=== PATIENT | female | born 1960 | race Caucasian/White ===

== ENCOUNTER → 2017-05-27 | Outpatient (CLI) | payer MEDICAID ==
[~2017-05-27] MED LIST: LISINOPRIL/HCTZ1 TA3 PO; LORTAB 5/500 501 TAB PO; PHENERGAN 25MG.25 M1 PO; Prilosec20 MG PO; SULFACETAMIDE S15 M1 OP; SYMBICORT1 AE1 IH; VENTOLIN H0.09 MG/Ac IH
[2017-05-27 16:44] LABS: HEMOGLOBIN 14.6 g/dL (12.2-16.2); LYMPH % 25.8 % (10-50.0)
[2017-05-27 18:25] LABS: BUN 13 mg/dL (7-18)
[2017-05-27 18:27] LABS: GFR (ESTIMATED) 74 ML/MIN (59-)
[2017-05-29 08:42] LABS: HBsAg Screen Negative (Negative); Hep A Ab, IgM Negative (Negative); Hep B Core Ab, IgM Negative (Negative); Hep C Virus Ab <0.1 (0.0-0.9)
[2017-05-29 10:40] LABS: Vitamin B12 365 pg/mL (211-946)
[2017-06-01 03:37] LABS: 1,25-Dihydroxy, Vitamin D-2 <10 pg/mL (.); 1,25-Dihydroxy, Vitamin D-3 38 pg/mL (.); Total 1,25-Dihydroxy,Vitamin D 42 pg/mL (.)
== END ==
LOC: LAB 16:07
PROVIDERS: Nurse Practitioner Family
DX: R53.83 Other fatigue (principal); R73.9 Hyperglycemia, unspecified; N93.9 Abnormal uterine and vaginal bleeding, unspecified

== ENCOUNTER → 2017-07-15 | Outpatient (CLI) | payer MEDICAID ==
[~2017-07-15] MED LIST changes: +ASPIR 8181 MG PO; +COREG 12.5 MG12.5 MG PO
--- NOTE | 2017-07-15 14:06 | CARDIOVASCULAR REPORT ---
"Cerebrovascular Exam Indications: 780.4 Dizziness and giddiness. IMPRESSIONS 1. The bilateral vertebral arteries are patent with normal antegrade flow. 2. Study suggests less than 20% stenosis involving the right internal carotid artery and the left internal carotid artery. Carotid duplex study. Complete study and Doppler flow study including spectral analysis, color and hernandez scale imaging. Height: Height: 160cm. Height: 63in. Weight: Weight: 82.6kg. Weight: 181.6lb. Body mass index: BMI: 32.2kg/m^2. Body surface area: BSA: 1.95m^2. Location: Vascular laboratory. Patient status: Outpatient. Tables: Arterial flow: + +--------+--------+ |Location |V sys |V ed | + +--------+--------+ |Right CCA - proximal|63.4cm/s|18.7cm/s| + +--------+--------+ |Right CCA - distal |62.3cm/s|20.4cm/s| + +--------+--------+ |Right ECA |58.9cm/s|--------| + +--------+--------+ |Right ICA - proximal|50cm/s |21.7cm/s| + +--------+--------+ |Right ICA - mid |59.7cm/s|29.1cm/s| + +--------+--------+ |Right ICA - distal |59.7cm/s|24.4cm/s| + +--------+--------+ |Right vertebral |29.9cm/s|--------| + +--------+--------+ |Left CCA - proximal |71.1cm/s|19.6cm/s| + +--------+--------+ |Left CCA - distal |68cm/s |20.8cm/s| + +--------+--------+ |Left ECA |78.1cm/s|--------| + +--------+--------+ |Left ICA - proximal |44.9cm/s|22cm/s | + +--------+--------+ |Left ICA - mid |73.5cm/s|35cm/s | + +--------+--------+ |Left ICA - distal |54.6cm/s|18.4cm/s| + +--------+--------+ |Left vertebral |28.9cm/s|--------| + +--------+--------+ Velocity ratios: + + + + + + | |Right, V sys|Right, V ed|Left, V sys|Left, V ed| + + + + + + |Max ICA/dist CCA|0.96 |1.43 |1.08 |1.68 | + + + + + + (Report amended ) Electronically signed by: Arnol Flores [id number]"
== END ==
LOC: RT 13:00
DX: R42 Dizziness and giddiness (principal); R20.2 Paresthesia of skin; I10 Essential (primary) hypertension

== ENCOUNTER 2017-07-17 14:48 | Observation (INO) | payer MEDICAID ==
[~2017-07-17] VITALS: Ht 160 cm; Wt 82.1 kg
[~2017-07-17 14:48] MED LIST changes: -ASPIR 8181 MG PO; -COREG 12.5 MG12.5 MG PO
[2017-07-17 14:49] VITALS: BP 157/111
--- OUTSIDE RECORDS SUMMARY | 2017-07-17 15:02 | External Medical Summary Rpt ---
Author Author , VIN BANUELOS Address Unknown Phone [email or web address] Care Team Providers Care Mutual Fund Accountant Name Role Phone A Mohini CLEMENS MD PSC, Gilbert Unavailable Unavailable Mohini CLEMENS MD PSC BEINEMIKE POSEY, BEINEKE Unavailable Unavailable KALPESH BESSON, BESSON Unavailable Unavailable BEDOYA, BEDOYA Unavailable Unavailable MICHELLE OMAR, MICHELLE Unavailable Unavailable OMAR [facility], Unavailable Unavailable [facility] GOLDIE AFIA, Unavailable Unavailable [facility] G[facility], Unavailable Unavailable GOLDIE AFIA [facility] Unavailable Unavailable [place], [facility] JENIFER [facility], FIELD [facility] Unavailable Unavailable FRYMAN, FRYMAN Unavailable Unavailable LAYNE, LAYNE Unavailable Unavailable LAYNE MARY LOU, LAYNE Unavailable Unavailable MARY LOU [facility] PAULINO RHO, PAULINO Unavailable Unavailable RHO [facility] Un[facility] Un[facility], [facility] Un[facility] Un[facility] P, [facility] JACOBSON, JACOBSON Unavailable Unavailable JACOBSON, JACOBSON Unavailable Unavailable [facility], Unavailable Unavailable [facility] KEDING, KEDING Unavailable Unavailable KEDING, KEDING Unavailable Unavailable KEDING YANG, KEDING Unavailable Unavailable YANG [place] YANG, KEDING Unavailable Unavailable YANG [facility] KILPELA JEA, KILPELA Unavailable Unavailable JEA KILPELA JEA, KILPELA Unavailable Unavailable JEA MARCHINO BRY, Unavailable Unavailable MARCHINO BRY [facility], Unavailable Unavailable [facility], Unavailable Unavailable [facility], Unavailable Unavailable [facility] NATHALIE BRY, NATHALIE BRY Unavailable Unavailable [facility], [facility] POUND, POUND Unavailable Unavailable [facility], Unavailable Unavailable [facility], Unavailable Unavailable [facility] STONE GAURANG, STONE GAURANG Unavailable Unavailable Purpose Continuity of Care Document - 12-17-2013 through 2016 Problems Code Diagnosis DOS Provider Status [id number] MIGRAINE 06-06-2017 [facility] W/AURA NOT INTRACT W/STATUS MIGRAINOSUS M5412 RADICULOPAT 06-06-2017 [facility] HY CERVICAL REGION M542 CERVICALGIA 06-06-2017 [facility] I10 ESSENTIAL 05-27-2017 [facility] PRIMARY PHYSICIANS HYPERTENSIO GROUP N N390 URINARY 05-27-2017 [facility] TRACT PHYSICIANS INFECTION GROUP SITE NOT SPECIFIED N939 ABNORMAL 05-27-2017 [facility] UTERINE & PHYSICIANS VAGINAL GROUP BLEEDING UNSPECIFIED R5383 OTHER 05-27-2017 [facility] FATIGUE PHYSICIANS GROUP R739 HYPERGLYCEM 05-27-2017 [facility] IA PHYSICIANS UNSPECIFIED GROUP Z1231 ENCOUNTER 03-13-2017 [place] [facility] MAMMO MAL INC NEOPLASM BREAST M4802 SPINAL 02-28-2017 [facility] STENOSIS PHYSICIANS CERVICAL GROUP REGION I2510 ASHD NOORVIK 02-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 [facility] 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 P ANGINA PECTORIS U29968 PAIN IN 02-06-2017 [facility] RIGHT ARM PHYSICIANS, PLLC C43557 PAIN IN 02-06-2017 [facility] LEFT ARM PHYSICIANS GROUP [id number] PAIN IN ARM 02-06-2017 [facility] R0789 OTHER CHEST 02-06-2017 [facility] PAIN PHYSICIANS GROUP R079 CHEST PAIN 02-06-2017 [place] Z720 TOBACCO USE 02-06-2017 [facility] P H1033 UNSPECIFIED 10-25-2016 [facility] ACUTE PHYSICIANS, CONJUNCTIVI PLLC TIS BILATERAL H109 UNSPECIFIED 10-25-2016 [facility] PHYSICIANS, CONJUNCTIVI PLLC TIS H1013 ACUTE 10-23-2016 [facility] CONJUNCTIVI TIS BILATERAL E53155 PAIN IN 09-17-2016 [facility] SHOULDER B04237 OTHER 09-17-2016 [place] SPECIFIED COMMUNTIY JOINT HOSPITA DISORDERS RIGHT SHOULDER M4302 SPONDYLOLYS 09-17-2016 [facility] IS CERVICAL N EMERGENCY REGION SERV M5030 OTH 09-17-2016 [place] CERVICAL COMMUNTIY DISC HOSPITA DEGENERATIO N UNS CERV REGION L12714 UNS ROT 09-17-2016 [place] CUFF COMMUNTIY TEAR/RUPT HOSPITA RT SHLDR NOT SPEC TRAUMAT M7521 BICIPITAL 09-17-2016 [facility] TENDINITIS N EMERGENCY RIGHT SERV SHOULDER M7551 BURSITIS OF 09-17-2016 [facility] RIGHT N EMERGENCY SHOULDER SERV M7591 SHOULDER 09-17-2016 [facility] LESION N EMERGENCY UNSPECIFIED SERV RIGHT SHOULDER Y60646 MIGRAINE 06-13-2016 [facility] UNS NOT PHYSICIANS INTRACT W/O GROUP STATUS MIGRAINOSUS J449 CHRONIC 06-13-2016 [facility] OBSTRUCTIVE PHYSICIANS PULMONARY GROUP DISEASE UNS K047 PERIAPICAL 06-13-2016 [facility] ABSCESS PHYSICIANS WITHOUT GROUP SINUS C19269 CELLULITIS 06-13-2016 [facility] OF HEAD ANY PHYSICIANS PART GROUP EXCEPT FACE R161 SPLENOMEGAL 06-13-2016 [facility] Y NOT PHYSICIANS ELSEWHERE GROUP CLASSIFIED Z0000 ENCOUNTER 06-13-2016 [facility] GEN ADULT PHYSICIANS MED EXAM GROUP W/O ABNORMAL FIND Z0100 ENCOUNTER 10-06-2015 ERA EXAM EYES & GRE VISION W/O ABNORMAL FIND R109 UNSPECIFIED 09-30-2015 A Mohini CLEMENS ABDOMINAL PSC PAIN R300 DYSURIA 09-30-2015 A Mohini CLEMENS MD [facility] G43C0 PERIODIC 09-15-2015 A Mohini CLEMENS HEADACHE PSC SYND CHILD/ADULT NOT INTRACT L659 NONSCARRING 09-15-2015 [facility] UNSPECIFIED M797 FIBROMYALGI 09-15-2015 [facility] Z8379 FAMILY 09-15-2015 [facility] OTHER DISEASES DIGESTIVE SYSTEM 7231 CERVICALGIA 08-02-2015 [place] YANG 74747 SPASM OF 08-02-2015 [facility] MUSCLE 71277 MIGRAINE 05-17-2015 A Mohini CLEMENS UNSP W/O PSC INTRACT W/O STATUS MIGRAINOSUS 06503 HEMIPLEGIC 04-19-2015 A Mohini CLEMENS MIGRAINE PSC W/INTRACTAB LE W/O SM 7881 DYSURIA 04-19-2015 A Mohini CLEMENS MD PSC 89796 CHRONIC 02-18-2015 A Mohini DEL CID MD PSC W/O AURA W/O INTRACTABLE W/O SM 496 CHRONIC 02-18-2015 A Mohini CLEMENS AIRWAY PSC OBSTRUCTION NEC 67713 OTHER CHEST 02-17-2015 A Mohini CLEMENS PAIN PSC 51330 SHORTNESS 09-10-2014 [place] [facility] 08085 SOLITARY 09-10-2014 [facility] NODULE INC 51403 DIVERTICULO 08-20-2014 [place] SIS OF MEDICAL COLON IMAG[facility] 5718 OTHER 08-20-2014 [place] CHRONIC MED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 77641 ABDOMINAL 08-20-2014 [facility] PAIN[facility] UNSPECIFIED INC SITE 28761 ABDOMINAL 08-20-2014 [place] [facility] EPIGASTRIC IM[facility] 61725 CHEST PAIN 08-12-2014 A Mohini CLEMENS UNSPECIFIED [facility] V7612 OTHER 08-12-2014 [facility]CREEN[facility] MAMMOGRAM INC 7245 UNSPECIFIED 08-11-2014 A Mohini CLEMENS BACKACHE PSC 4011 ESSENTIAL 12-30-2013 GER[facility]DOKIR[facility] PAM HYPERTENSIO N, BENIGN 7821 RASH AND 12-30-2013 KILPELA JEA OTHER NONSPECIFIC SKIN ERUPTION 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 OF 5 CY MG NT HI TA AN B A IN C CE 65 06 07 20 10 00 EA Ac PH 86 -2 -[address] ti AL 20 6- 8- 00 00 SI ve EX 01 20 20 49 DE IN 90 17 17 25 5 10 PH 50 AR 0 MA MG CY CA OF PS CY UL NT E HI AN A IN C LI 68 06 07 30 30 00 EA Ac SI 18 -1 -[address] ti NO 00 4- 4- 00 00 SI ve UT 51 20 20 47 DE IL 80 17 17 98 -H [address] AR Z MA 10 CY -1 2. OF 5 CY MG NT HI TA AN B A IN C CY 00 03 05 28 14 00 EA Ac CL 37 -3 -[address] ti OB 80 0- 5- 00 00 SI ve EN 75 20 20 48 DE ZA 11 17 17 18 UT 0 29 PH IN AR E MA 10 CY MG OF CY TA NT BL HI ET AN A IN C IB 53 03 05 30 30 00 EA Ac UP 74 -3 -[address] ti RO 60 0- 5- 00 00 SI ve FE 46 20 20 48 DE N 60 17 17 18 80 5 49 PH 0 AR MG MA CY TA BL OF ET CY NT HI AN A IN C SY 00 03 04 10 30 00 EA Ac MB 18 -1 -[address] ti IC 60 5- 4- 99 00 SI ve OR 37 20 20 47 DE T 02 17 17 98 16 0 47 PH 0- AR 4. MA 5 CY MC G OF IN CY BLANDON NT LE HI R AN A IN C VE 00 03 04 18 20 00 EA Ac NT 17 -1 -[address] ti OL 30 5- 4- 00 00 SI ve IN 68 20 20 47 DE 22 17 17 98 HF 0 48 PH A AR 90 MA CY MC G OF IN CY BLANDON NT LE HI R AN A IN C LI 68 03 04 30 30 00 EA Ac SI 18 -1 -[address] ti NO 00 5- 4- 00 00 SI ve UT 51 20 20 47 DE IL 80 17 17 98 -H [address] AR Z MA 10 CY -1 2. OF 5 CY MG NT HI TA AN B A IN C LI 68 01 01 0 40 4 EA 47 GA Ac SI 18 -0 -[address] 17 IN ti NO 00 9- 0- 00 SI 28 EY ve UT 51 20 20 DE [place] 80 17 17 WI -H [address] AR AE Z MA L 10 CY S -1 2. OF 5 MG CY NT TA HI B AN A Results Labs Lab Lab Date Result Refere Interp Status Commen Order Detail nces retati t Range on Hemoglobin A1c in Blood (06-27-2017 19:55) Hemoglo 06-27- 5.4 % 0.0% Normal complet bin A1c 017 - ed in 19:55 7.0% Blood Hemoglobin A1c in Blood (05-27-2017 11:45) Hemoglo 05-27- 5.3 % 0.0% Normal complet bin A1c 017 - ed in 11:45 7.0% Blood Procedures Procedure DOS Code Location Performer Comment APPL 31755 [facility] MODALITY 7 1/> AREAS TRACTION MECHANICA L CHIROPRAC 75868 [facility] TIC 7 MANIPULAT DAMIAN [place] SPINAL 1-2 REGIONS APPL 60195 [facility] MODALITY 7 1/> AREAS TRACTION MECHANICA L CHIROPRAC 08732 [facility] TIC 7 MANIPULAT DAMIAN [place] SPINAL 1-2 REGIONS SCREENING 61606 [facility] MAMMOGRAP INC INC HY BI 2-VIEW BREAST INC CAD RHEUMATOI 71325 [facility] D FACTOR 7 [facility] QUANTITAT INC INC DAMIAN CYANOCOBA 33031 [facility] IGNACIA 7 [facility] VITAMIN INC INC B-12 THERAPEUT 56093 [facility] IC 7 PHYSICIAN PHYSICIAN PROPHYLAC S GROUP S GROUP TIC/DX INJECTION SUBQ/[place] [address] [facility] THYROID 7 [facility] STIMULATI [place] [address] [facility] FREE 7 [facility] [place] [address] [facility] FOLIC 7 [facility] ACID INC INC SERUM COMPREHEN 60788 [facility] SIVE 7 [facility] METABOLIC INC INC PANEL APPL 81765 [facility] MODALITY 7 1/> AREAS TRACTION MECHANICA L CHIROPRAC 18168 [facility] TIC 7 MANIPULAT DAMIAN TX SPINAL 1-2 REGIONS ECG 36778 [facility] ROUTINE 7 [facility] ECG INC INC W/LEAST 12 LDS TRCG ONLY W/O I&R THER 96157 [facility] PROPH/DX 7 [facility] NJX IV INC INC PUSH SINGLE/1S T SBST/DRUG CREATINE 09392 [facility] KINASE 7 [facility] TOTAL INC CREATINE 39068 [facility] KINASE MB 7 [facility] FRACTION INC INC ONLY COMPREHEN 68367 [facility] SIVE 7 [facility] METABOLIC INC INC PANEL THERAPEUT 82409 [facility] IC 7 [facility] INJECTION INC INC IV PUSH EACH NEW DRUG BLOOD 68083 [facility] COUNT 7 [facility] COMPLETE INC INC AUTO&[place] [address] [facility] TROPONIN 7 [facility] QUANTITAT INC INC DAMIAN ECG 46207 [facility] IGNACIO ROUTINE 7 [facility] W/LEAST P 12 LDS I&R ONLY RADIOLOGI 24275 [place] C 7 MEDICAL EXAMINATI IMAGING ON CHEST ASS SINGLE VIEW FRONTAL APPL 25946 [facility] [place]EDING MODALITY 7 1/> AREAS TRACTION MECHANICA L CHIROPRAC 27859 [facility] [place] TIC 7 MANIPULAT DAMIAN TX SPINAL 1-2 REGIONS CHIROPRAC 49701 [facility] [place] TIC 7 MANIPULAT DAMIAN TX SPINAL 1-2 REGIONS CHIROPRAC 30799 [facility] [place] TIC 7 MANIPULAT DAMIAN TX SPINAL 1-2 REGIONS CHIROPRAC 32614 [facility] [place] TIC 6 YANG YANG MANIPULAT DAMIAN TX SPINAL 1-2 REGIONS CHIROPRAC 65593 [facility] [place] TIC 6 YANG YANG MANIPULAT DAMIAN TX SPINAL 1-2 REGIONS CHIROPRAC 22931 [facility] [place] TIC 6 YANG YANG MANIPULAT DAMIAN TX SPINAL 1-2 REGIONS INJECTION J2360 [facility] 6 N N ORPHENADR COMMUNTIY COMMUNTIY INE HOSPITA HOSPITA CITRATE UP TO 60 MG INJECTION J1885 [facility] 6 N N KETOROLAC COMMUNTIY COMMUNTIY HOSPITA HOSPITA TROMETHAM INE PER 15 MG RADEX 58564 [facility] SPINE 6 N N CERVICAL COMMUNTIY COMMUNTIY 2 OR 3 HOSPITA HOSPITA VIEWS RADEX 42438 [facility] [place] [facility] SPINE 6 RADIOLOGY RHO CERVICAL 4 OR 5 VIEWS RADEX 21686 [facility] SHOULDER 6 N N COMPLETE COMMUNTIY COMMUNTIY MINIMUM 2 HOSPITA HOSPITA VIEWS THERAPEUT 06662 [facility] IC 6 N N PROPHYLAC COMMUNTIY COMMUNTIY TIC/DX HOSPITA HOSPITA INJECTION SUBQ/IM CHIROPRAC 64531 [facility] SOLIS TIC 6 YANG BRY MANIPULAT DAMIAN TX SPINAL 1-2 REGIONS CHIROPRAC 90619 [facility] MARTINEZ TIC 6 YANG OMAR MANIPULAT DAMIAN TX SPINAL 1-2 REGIONS CHIROPRAC 58042 [facility] MCKEONDING TIC 6 YANG YANG MANIPULAT DAMIAN TX SPINAL 1-2 REGIONS COLLECTIO 15982 [facility] MERCEDES GAURANG N VENOUS 6 PHYSICIAN BLOOD S GROUP VENIPUNCT URE ANTIBODY 18813 [facility] JS-B 6 [facility] ARR EB INC [place] [address] [facility] THYROID 6 [facility] STIMULATI [place] [address] [facility] FREE 6 [facility] THYROXINE INC INC COMPREHEN 14660 [facility] SIVE 6 [facility] METABOLIC INC INC PANEL IMMUNOASS 28784 [facility] AY NFCT 6 [facility] AGT ANTB INC INC QUAL/SEMI CONNER 1 STEP BLOOD 32156 [facility] COUNT 6 [facility] COMPLETE INC INC AUTO&AUTO DIFRNTL WBC ANTIBODY 71126 [facility] JS-B 6 [facility] ARR EB INC INC VIRUS VIRAL CAPSID VCA CHIROPRA 22063 [facility] MCKEOND[facility] TIC 6 YANG YANG MANIPULAT DAMIAN TX SPINAL 1-2 REGIONS CHIROPRAC 38575 [facility] MCKEONDING TIC 6 YANG YANG MANIPULAT DAMIAN TX SPINAL 1-2 REGIONS APPL 76440 [facility] MODALITY 6 1/> AREAS TRACTION MECHANICA L CHIROPRAC 98907 [facility] TIC 6 MANIPULAT DAMIAN [place] SPINAL 1-2 REGIONS THERAPEUT 62441 [facility] IC PX 1/> 6 AREAS EACH 15 MIN EXERCISES CHIROPRAC 99789 [facility] TIC 6 YANG YANG MANIPULAT DAMIAN TX SPINAL 1-2 REGIONS CHIROPRAC 61361 [facility] [place] TIC 6 YANG YANG MANIPULAT DAMIAN TX SPINAL 1-2 REGIONS THERAPEUT 64372 [facility] [place] IC PX 1/> 6 AREAS EACH 15 MIN EXERCISES APPL 42325 [facility] [place] MODALITY 6 1/> AREAS TRACTION MECHANICA L CHIROPRAC 86690 [facility] [place] TIC 6 MANIPULAT DAMIAN TX SPINAL 1-2 REGIONS CHIROPRAC 75332 [facility] [place] TIC 6 YANG YANG MANIPULAT DAMIAN TX SPINAL 1-2 REGIONS CHIROPRAC 48454 [facility] [place] TIC 5 YANG YANG MANIPULAT DAMIAN TX SPINAL 1-2 REGIONS CHIROPRAC 73363 [facility] [place] TIC 5 YANG YANG MANIPULAT DAMIAN TX SPINAL 1-2 REGIONS OPHTH 79397 [facility] 5 GRE GRE XM&EVAL COMPRE NEW PT 1/> VST URINLS 40355 A C KILPELA DIP 5 SARATH RODRIGUEZ JEA STICK/TAB PSC LET REAGNT NON-AUTO MICRSCPY BILIRUBIN 90059 [facility] 5 DIAGNOSTI DIAGNOSTI CS BLOOD 17180 A C NATHALIE BRY COUNT 5 SARATH RODRIGUEZ COMPLETE PSC AUTO&AUTO DIFRNTL WBC COMPREHEN 39959 [facility] SIVE 5 DIAGNOSTI DIAGNOSTI [place] [address] [facility] THYROID 5 DIAGNOSTI DIAGNOSTI STIMULATI CS CS NG HORMONE TSH CHIROPRA 31658 [facility] [place] TIC 5 YANG YANG MANIPULAT DAMIAN TX SPINAL 1-2 REGIONS CHIROPRAC 03294 [facility] [place] TIC 5 YANG YANG MANIPULAT DAMIAN TX SPINAL 1-2 REGIONS CHIROPRAC 18459 [facility] [place] TIC 5 YANG YANG MANIPULAT DAMIAN TX SPINAL 1-2 REGIONS THERAPEUT 03768 A C FIELD AMB IC 5 SARATH RODRIGUEZ PROPHYLAC PSC TIC/DX INJECTION SUBQ/IM URINLS 46478 A C FIELD AMB DIP 5 SARATH RODRIGUEZ STICK/TAB PSC LET REAGNT NON-AUTO MICRSCPY INJECTION J1885 A C FIELD AMB 5 SARATH RODRIGUEZ KETOROLAC PSC TROMETHAM INE PER 15 MG CHIROPRAC 96092 [facility] [place] TIC 5 YANG YANG MANIPULAT DAMIAN TX SPINAL 1-2 REGIONS APPL 64373 [facility] [place] MODALITY 5 YANG YANG 1/> AREAS TRACTION MECHANICA L CHIROPRAC 36641 [facility] [place] TIC 5 YANG YANG MANIPULAT DAMIAN TX SPINAL 1-2 REGIONS THERAPEUT 36410 [facility] [place] IC PX 1/> 5 YANG YANG AREAS EACH 15 MIN EXERCISES RADEX 47622 [facility] SPINE 5 [facility] CERVICAL INC INC 4 OR 5 VIEWS THERAPEUT 52309 A C GERALDOLA IC 5 SARATH RODRIGUEZ JEGilbert PROPHYLAC PSC TIC/DX INJECTION SUBQ/IM INJECTION J1885 A C KILPELA 5 SARATH OROZCO KETOROLAC PSC TROMETHAM INE PER 15 MG INJ J0702 A C YEMIPELA BETAMETHA 5 SARATH OROZCO SONE PSC ACETATE & PHOSPHATE 3 MG INJECTION J1030 A C KILPELA 5 SARATH OROZCO METHYLPRE PSC DNISOLONE ACETATE 40 MG THERAPEUT 37978 [facility] [place] IC PX 1/> 5 YANG YANG AREAS EACH 15 MIN EXERCISES APPL 25351 [facility] [place] MODALITY 5 YANG YANG 1/> AREAS TRACTION MECHANICA L CHIROPRAC 22106 [facility] [place] TIC 5 YANG YANG MANIPULAT DAMIAN TX SPINAL 1-2 REGIONS APPL 77519 [facility] [place] MODALITY 5 YANG YANG 1/> AREAS TRACTION MECHANICA L CHIROPRAC 09085 [facility] [place] TIC 5 YANG YANG MANIPULAT DAMIAN TX SPINAL 1-2 REGIONS THERAPEUT 83764 [facility] IC PX 1/> 5 YANG YANG AREAS EACH 15 MIN EXERCISES THERAPEUT 40857 [facility] IC PX 1/> 5 YANG YANG AREAS EACH 15 MIN EXERCISES APPL 03392 [facility] [place] MODALITY 5 YANG YANG 1/> AREAS TRACTION MECHANICA L CHIROPRAC 02625 [facility] [place] TIC 5 YANG YANG MANIPULAT DAMIAN TX SPINAL 1-2 REGIONS CHIROPRAC 67641 [facility] TIC 5 YANG YANG MANIPULAT DAMIAN TX SPINAL 1-2 REGIONS THERAPEUT 63707 A C FIELD AMB IC 5 SARATH RODRIGUEZ PROPHYLAC PSC TIC/DX INJECTION SUBQ/IM ECG 29303 A C FIELD AMB ROUTINE 5 SARATH RODRIGUEZ ECG PSC W/LEAST 12 LDS W/I&R INJECTION J1885 A C FIELD AMB 5 SARATH RODRIGUEZ KETOROLAC PSC TROMETHAM INE PER [address] THORAX 05871 [place] [facility] 4 MEDICAL AFIA W/CONTRAS IMAGING T ASS MATERIAL CREATININ 48282 [facility] E BLOOD 4 [place] [address] [facility] UREA 4 [facility] NITROGEN INC INC QUANTITAT DAMIAN LOCM Q9967 [facility] 300-399 4 [facility] MG/ML INC [place] [address] [place] ABDOMEN & 4 MEDICAL AFIA PELVIS IMAGING W/[place] [address] [facility] TROPONIN 4 [facility] QUANTITAT INC INC DAMIAN ECG 80127 A C KILPELA ROUTINE 4 SARATH RODRIGUEZ JEA ECG PSC W/LEAST 12 LDS W/I&R URINLS 31684 A C KILPELA DIP 4 SARATH RODRIGUEZ JEA STICK/TAB PSC LET REAGNT NON-AUTO MICRSCPY RADIOLOGI 53753 [facility] C EXAM 4 MEDICAL KALPESH CHEST 2 IMAGING VIEWS ASS FRONTAL&L ATERAL COMPUTER- 74624 [facility] AIDED 4 AFIA AFIA DETECTION SCREENING MAMMOGRAP HY SCREENING G0202 [facility]OLDIE 4 [facility]IA AFIA MAMMOGRAP HY CHERYL INCL CAD WHEN PERFORMD DUPLEX 99946 [facility] SCAN 4 [facility]IA EXTRACRAN IAL ART COMPL BI STUDY Encounters Encounter Start End Date Code Location Performer Type Date OFFICE 15822 [facility] OUTPATIEN 7 7 PHYSICIAN T VISIT S GROUP 25 [facility]UTES [facility] T OFFICE [id number] [facility] OUTPATIEN 7 7 PHYSICIAN T VISIT S GROUP 25 MINUTES OFFICE 44505 [facility] OUTPATIEN 7 7 PHYSICIAN T VISIT S GROUP 15 MINUTES EMERGENCY 68564 SUSAN TILLMAN DEPT 7 7 PHYSICIAN VISIT S, PLLC HIGH SEVERITY& THREAT FUN [facility] T EMERGENCY 26603 [facility] 7 7 [facility] DEPARTMEN INC T VISIT HIGH/URGE NT SEVERITY EMERGENCY 96014 SUSAN TILLMAN 6 6 PHYSICIAN MARY LOU DEPARTMEN S, [facility] T VISIT MODERATE SEVERITY OFFICE 49267 JACOBSONCORRIE JACOBSON OUTPATIEN 6 6 T NEW 10 MINUTES HOSPITAL [facility] - 6 6 N OUTPATIEN COMMUNTIY T HOSPITA EMERGENCY 00789 [facility] 6 6 N DEPARTMEN COMMUNTIY T VISIT HOSPITA MODERATE SEVERITY EMERGENCY 00783 [facility] 6 6 [facility] VISIT SERV HIGH/URGE NT SEVERITY [facility] 6 6 [facility] INC T OFFICE 64389 [facility] MERLOS OUTPATIEN 6 6 PHYSICIAN T NEW 45 S GROUP MINUTES OFFICE 21166 Gilbert LONDONO 5 5 SARATH OROZCO T VISIT PSC 15 MINUTES OFFICE 64947 Gilbert DIAZ 5 5 SARATH RODRIGUEZ T VISIT PSC 25 MINUTES OFFICE 91911 A C NATHALIE BRY OUTPATIEN 5 5 SARATH RODRIGUEZ T VISIT PSC 15 MINUTES OFFICE 64014 A C FIELD AMB OUTPATIEN 5 5 SARATH RODRIGUEZ T VISIT PSC 15 MINUTES [facility] 5 5 [facility] T OFFICE 75667 A C KILPELA OUTPATIEN 5 5 SARATH OROZCO T VISIT PSC 15 MINUTES OFFICE 92976 [facility] OUT[facility] 5 5 YANG Cuellar NEW 30 MINUTES OFFICE 75545 A C FIELD AMB OUTPATIEN 5 5 SARATH RODRIGUEZ T VISIT PSC 15 MINUTES OFFICE 44138 A C FIELD AMB OUTPATIEN 5 5 SARATH RODRIGUEZ T VISIT [facility] 15 [facility] 4 4 [facility] 4 4 [facility] INC T OFFICE 16242 A C KILPELA OUTPATIEN 4 4 SARATH OROZCO T VISIT PSC 25 MINUTES OFFICE 30127 A C KILPELA OUTPATIEN 4 4 SARATH OROZCO T VISIT [facility] 25 MINUTES OFFICE 57718 [facility] KILPELA OUTPATIEN 4 4 [facility] Cuellar VISIT 15 [facility]UTES [facility] OFFICE 14853 [facility] K[facility]PE[facility] OUTPATIEN 4 4 PAM Cuellar NEW 45 MINUTES
--- OUTSIDE RECORDS SUMMARY | 2017-07-17 15:02 | External Medical Summary Rpt ---
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 Name Role Phone A Mohini CLEMENS MD PSC, Gilbert Unavailable Unavailable Mohini CLEMENS MD PSC BEINEMIKE POSEY, BEINEKE Unavailable Unavailable KALPESH BESSON, BESSON Unavailable Unavailable BEDOYA, BEDOYA Unavailable Unavailable MICHELLE OMAR, MICHELLE Unavailable Unavailable OMAR [facility], Unavailable Unavailable [facility] GOLDIE AFIA, Unavailable Unavailable GOLDIE AFIA G[facility], Unavailable Unavailable GOLDIE AFIA [facility] Unavailable Unavailable [place], [facility] JENIFER FIELD AMB, FIELD AMB Unavailable Unavailable FRYMAN, FRYMAN Unavailable Unavailable LAYNE, LAYNE Unavailable Unavailable LAYNE MARY LOU, LAYNE Unavailable Unavailable MARY LOU [facility] PAULINO RHO, PAULINO Unavailable Unavailable RHO [facility] Unavailable Unavailable [facility], [facility] Unavailable Unavailable H[facility]PITAL P, [facility] JACOBSON, JACOBSON Unavailable Unavailable JACOBSON, JACOBSON Unavailable Unavailable [facility], Unavailable Unavailable [facility] KEDING, KEDING Unavailable Unavailable KEDING, KEDING Unavailable Unavailable KEDING YANG, KEDING Unavailable Unavailable YANG KEDING YANG, KEDING Unavailable Unavailable YANG [facility] KILPELA JEA, KILPELA Unavailable [...] 2016 Problems Code Diagnosis DOS Provider Status [id number] MIGRAINE 06-06-2017 [facility] W/AURA NOT INTRACT W/STATUS MIGRAINOSUS M5412 RADICULOPAT 06-06-2017 [facility] HY CERVICAL REGION M542 CERVICALGIA 06-06-2017 [facility] I10 ESSENTIAL 05-27-2017 [facility] PRIMARY PHYSICIANS HYPERTENSIO GROUP N N390 URINARY 05-27-2017 [facility] TRACT PHYSICIANS INFECTION GROUP SITE NOT SPECIFIED N939 ABNORMAL 05-27-2017 [facility] UTERINE & PHYSICIANS VAGINAL GROUP BLEEDING UNSPECIFIED R5383 OTHER 05-27-2017 [facility] FATIGUE PHYSICIANS GROUP R739 HYPERGLYCEM 05-27-2017 [facility] IA PHYSICIANS UNSPECIFIED GROUP Z1231 ENCOUNTER 03-13-2017 [place] [facility] MAMMO MAL INC NEOPLASM BREAST M4802 SPINAL 02-28-2017 [facility] STENOSIS PHYSICIANS CERVICAL GROUP REGION I2510 ASHD [place] 02-06-2017 [facility] 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 P ANGINA PECTORIS I02061 PAIN IN 02-06-2017 [facility] RIGHT ARM PHYSICIANS, PLLC X57469 PAIN IN 02-06-2017 [facility] LEFT ARM PHYSICIANS GROUP K92004 PAIN IN ARM 02-06-2017 [facility]NSPEC[facility] R0789 OTHER CHEST 02-06-2017 [facility] PAIN PHYSICIANS GROUP R079 CHEST PAIN 02-06-2017 [facility] Z720 TOBACCO USE 02-06-2017 [facility] P H1033 UNSPECIFIED 10-25-2016 [facility] ACUTE PHYSICIANS, CONJUNCTIVI PLLC TIS BILATERAL H109 UNSPECIFIED 10-25-2016 [facility] PHYSICIANS, CONJUNCTIVI PLLC TIS H1013 ACUTE 10-23-2016 [facility]AC[facility] AT[facility]IC CONJUNCTIVI TIS BILATERAL F23622 PAIN IN 09-17-2016 [facility] SHOULDER Q43424 OTHER 09-17-2016 [facility] SPECIFIED COMMUNTIY JOINT HOSPITA DISORDERS RIGHT SHOULDER M4302 SPONDYLOLYS 09-17-2016 [facility] IS CERVICAL N EMERGENCY REGION SERV M5030 OTH 09-17-2016 [facility] CERVICAL COMMUNTIY DISC HOSPITA DEGENERATIO N UNS CERV REGION J62621 UNS ROT 09-17-2016 [facility] CUFF COMMUNTIY TEAR/RUPT HOSPITA RT SHLDR NOT SPEC TRAUMAT M7521 BICIPITAL 09-17-2016 [facility] TENDINITIS N EMERGENCY RIGHT SERV SHOULDER M7551 BURSITIS OF 09-17-2016 [facility] RIGHT N EMERGENCY SHOULDER SERV M7591 SHOULDER 09-17-2016 [facility] LESION N EMERGENCY UNSPECIFIED SERV RIGHT SHOULDER U95542 MIGRAINE 06-13-2016 [facility] UNS NOT PHYSICIANS INTRACT W/O GROUP STATUS MIGRAINOSUS J449 CHRONIC 06-13-2016 [facility] OBSTRUCTIVE PHYSICIANS PULMONARY GROUP DISEASE UNS K047 PERIAPICAL 06-13-2016 [facility] ABSCESS PHYSICIANS WITHOUT GROUP SINUS U79092 CELLULITIS 06-13-2016 [facility] OF HEAD ANY PHYSICIANS PART GROUP EXCEPT FACE R161 SPLENOMEGAL 06-13-2016 [facility] Y NOT PHYSICIANS ELSEWHERE GROUP CLASSIFIED Z0000 ENCOUNTER 06-13-2016 [facility] GEN ADULT PHYSICIANS MED EXAM GROUP W/O ABNORMAL FIND Z0100 ENCOUNTER 10-06-2015 ERA EXAM EYES & GRE VISION W/O ABNORMAL FIND R109 UNSPECIFIED 09-30-2015 A Mohini CLEMENS ABDOMINAL PSC PAIN R300 DYSURIA 09-30-2015 A Mohini CLEMENS MD [facility] G43C0 PERIODIC 09-15-2015 A Mohini CLEMENS HEADACHE PSC SYND CHILD/ADULT NOT INTRACT L659 NONSCARRING 09-15-2015 [facility] UNSPECIFIED M797 FIBROMYALGI 09-15-2015 [facility] A [facility] Z8379 FAMILY 09-15-2015 [facility] OTHER DISEASES DIGESTIVE SYSTEM 7231 CERVICALGIA 08-02-2015 [place] YANG 53986 SPASM OF 08-02-2015 [facility] SORIA MUSCLE 25833 MIGRAINE 05-17-2015 A Mohini CLEMENS UNSP W/O PSC INTRACT W/O STATUS MIGRAINOSUS 83014 HEMIPLEGIC 04-19-2015 A Mohini CLEMENS MIGRAINE PSC W/INTRACTAB LE W/O SM 7881 DYSURIA 04-19-2015 A Mohini CLEMENS MD PSC 59645 CHRONIC 02-18-2015 A Mohini DEL CID MD PSC W/O AURA W/O INTRACTABLE W/O SM 496 CHRONIC 02-18-2015 A Mohini CLEMENS AIRWAY PSC OBSTRUCTION NEC 73227 OTHER CHEST 02-17-2015 A Mohini CLEMENS PAIN PSC 21128 SHORTNESS 09-10-2014 [facility] 43927 SOLITARY 09-10-2014 [facility] PULMON[facility] 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 [facility] 5718 OTHER 08-20-2014 [facility] CHRONIC MED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 42994 ABDOMINAL 08-20-2014 [facility] PAIN, [facility] UNSPECIFIED INC SITE 90381 ABDOMINAL 08-20-2014 [place] [facility], [facility] EPIGASTRIC [facility] 74427 CHEST PAIN 08-12-2014 A Mohini CLEMENS UNSPECIFIED [facility] V7612 OTHER 08-12-2014 [facility] SCREENING [facility] MAMMOGRAM INC 7245 UNSPECIFIED 08-11-2014 A Mohini CLEMENS BACKACHE PSC 4011 ESSENTIAL 12-30-2013 GERALDOKIRA PAM HYPERTENSIO N, BENIGN 7821 RASH AND 12-30-2013 KILPELA JEA OTHER NONSPECIFIC SKIN ERUPTION 4471 STRICTURE 12-25-2013 [facility] OF ARTERY AFIA 21021 OTHER 12-25-2013 [facility]MPTOMS [facility] INVOLVING [...] 00 1- 1- 00 00 SI ve CA 51 20 20 49 DE IL 80 [...] 00 4- 4- 00 00 SI ve CA 51 20 20 47 DE IL 80 [...] 48 DE ZA 11 17 17 18 CA 0 29 PH IN AR E MA [...] 00 5- 4- 00 00 SI ve CA 51 20 20 47 DE IL 80 17 17 98 -H [address] AR Z MA 10 CY -1 2. OF 5 CY MG NT HI TA AN B A IN C LI 68 01 01 0 40 4 EA 47 GA Ac SI 18 -0 -[address] 17 IN ti NO 00 9- 0- 00 SI 28 EY ve CA 51 20 20 DE IL 80 17 17 MD -H [address] AR AE [...] Procedure DOS Code Location Performer Comment APPL 16188 [facility] WILLIAM MODALITY 7 1/> AREAS TRACTION MECHANICA L CHIROPRAC 08106 [facility] WILLIAM TIC 7 MANIPULAT DAMIAN [place] SPINAL 1-2 REGIONS APPL 00274 [facility] WILL[facility] MODALITY 7 1/> AREAS TRACTION MECHANICA L CHIROPRAC 43810 [facility] WILLIAM TIC 7 MANIPULAT DAMIAN [place] SPINAL 1-2 REGIONS SCREENING 19006 [facility] MAMMOGRAP INC INC HY BI 2-VIEW BREAST INC CAD RHEUMATOI 70393 [facility] D FACTOR 7 [facility] QUANTITAT INC INC DAMIAN CYANOCOBA 13582 [facility] IGNACIA 7 [facility] VITAMIN INC INC B-12 THERAPEUT 64650 [facility] IC 7 PHYSICIAN PHYSICIAN PROPHYLAC S GROUP S GROUP TIC/DX INJECTION SUBQ/[place] [address] [facility] THYROID 7 [facility] STIMULATI [place] [address] [facility] FREE 7 [facility] [place] [address] [facility] FOLIC 7 [facility] ACID INC INC SERUM COMPREHEN 06486 [facility] SIVE 7 [facility] METABOLIC INC INC PANEL APPL 21664 [facility] WILLIAM MODALITY 7 1/> AREAS TRACTION MECHANICA L CHIROPRAC 47535 [facility] WILLIAM TIC 7 MANIPULAT DAMIAN TX SPINAL 1-2 REGIONS ECG 96805 [facility] ROUTINE 7 [facility] ECG INC INC W/LEAST 12 LDS TRCG ONLY W/O I&R THER 67136 [facility] PROPH/DX 7 [facility] NJX IV INC INC PUSH SINGLE/1S T SBST/DRUG CREATINE 03475 [facility] BHAT KINASE 7 [facility] TOTAL INC CREATINE 28025 [facility] KINASE MB 7 [facility] FRACTION INC INC ONLY COMPREHEN 99115 [facility] SIVE 7 [facility] METABOLIC INC INC PANEL THERAPEUT 81670 [facility] IC 7 [facility] INJECTION INC INC IV PUSH EACH NEW DRUG BLOOD 74912 [facility] COUNT 7 [facility] COMPLETE INC INC AUTO&[place] [address] [facility] TROPONIN 7 [facility] QUANTITAT INC INC DAMIAN ECG 49380 [facility] IGNACIO ROUTINE 7 [facility] W/LEAST P 12 LDS I&R ONLY RADIOLOGI 44841 [facility] B[facility]OY[facility] C 7 MEDICAL EXAMINATI IMAGING ON CHEST ASS SINGLE VIEW FRONTAL APPL 84096 [facility] KEDING MODALITY 7 1/> AREAS TRACTION MECHANICA L CHIROPRAC 75463 [facility] [place] TIC 7 MANIPULAT DAMIAN TX SPINAL 1-2 REGIONS CHIROPRAC 10226 [facility] [place] TIC 7 MANIPULAT DAMIAN TX SPINAL 1-2 REGIONS CHIROPRAC 54626 [facility] [place] TIC 7 MANIPULAT DAMIAN TX SPINAL 1-2 REGIONS CHIROPRAC 96937 [facility] [place] TIC 6 YANG YANG MANIPULAT DAMIAN TX SPINAL 1-2 REGIONS CHIROPRAC 11211 [facility] [place] TIC 6 YANG YANG MANIPULAT DAMIAN TX SPINAL 1-2 REGIONS CHIROPRAC 67123 [facility] TIC 6 YANG YANG MANIPULAT DAMIAN TX SPINAL 1-2 REGIONS INJECTION J2360 [facility] 6 N N ORPHENADR COMMUNTIY COMMUNTIY INE HOSPITA HOSPITA CITRATE UP TO 60 MG INJECTION J1885 [facility] 6 N N KETOROLAC COMMUNTIY COMMUNTIY HOSPITA HOSPITA TROMETHAM INE PER 15 MG RADEX 58094 [facility] SPINE 6 N N CERVICAL COMMUNTIY COMMUNTIY 2 OR 3 HOSPITA HOSPITA VIEWS RADEX 56680 [facility] SPINE 6 RADIOLOGY RHO CERVICAL 4 OR 5 VIEWS RADEX 81836 [facility] SHOULDER 6 N N COMPLETE COMMUNTIY COMMUNTIY MINIMUM 2 HOSPITA HOSPITA VIEWS THERAPEUT 22959 [facility] IC 6 N N PROPHYLAC COMMUNTIY COMMUNTIY TIC/DX HOSPITA HOSPITA INJECTION SUBQ/IM CHIROPRAC 03582 [facility] SOLIS TIC 6 YANG BRY MANIPULAT DAMIAN TX SPINAL 1-2 REGIONS CHIROPRAC 73246 [facility] MARTINEZ TIC 6 YANG OMAR MANIPULAT DAMIAN TX SPINAL 1-2 REGIONS CHIROPRAC 43699 [facility] MCKEONDING TIC 6 YANG YANG MANIPULAT DAMIAN TX SPINAL 1-2 REGIONS COLLECTIO 39647 [facility] N VENOUS 6 PHYSICIAN BLOOD S GROUP VENIPUNCT URE ANTIBODY 04411 [facility] JS-B 6 [facility] ARR EB INC [place] [address] [facility] THYROID 6 [facility] STIMULATI [place] [address] [facility] FREE 6 [facility] THYROXINE INC INC COMPREHEN 13631 [facility] SIVE 6 [facility] METABOLIC INC INC PANEL IMMUNOASS 93754 [facility] AY NFCT 6 [facility] AGT ANTB INC INC QUAL/SEMI CONNER 1 STEP BLOOD 63009 [facility] COUNT 6 [facility] COMPLETE INC INC AUTO&AUTO DIFRNTL WBC ANTIBODY 09337 [facility] JS-B 6 [facility] ARR EB INC INC VIRUS VIRAL CAPSID VCA CHIROPRA 18684 [facility] MCKEONDING TIC 6 YANG YANG MANIPULAT DAMINA TX SPINAL 1-2 REGIONS CHIROPRAC 74461 [facility] MCKEONDING TIC 6 YANG YANG MANIPULAT DAMIAN TX SPINAL 1-2 REGIONS APPL 34796 [facility] MODALITY 6 1/> AREAS TRACTION MECHANICA L CHIROPRAC 91901 [facility] TIC 6 MANIPULAT DAMIAN TX SPINAL 1-2 REGIONS THERAPEUT 03568 [facility] WILLIAM IC PX 1/> 6 AREAS EACH 15 MIN EXERCISES CHIROPRAC 39858 [facility] WILLIAM TIC 6 YANG YANG MANIPULAT DAMIAN TX SPINAL 1-2 REGIONS CHIROPRAC 80743 [facility]ED[facility] TIC 6 YANG YANG MANIPULAT DAMIAN TX SPINAL 1-2 REGIONS THERAPEUT 10154 [facility] [place] IC PX 1/> 6 AREAS EACH 15 MIN EXERCISES APPL 47328 [facility] KEDING MODALITY 6 1/> AREAS TRACTION MECHANICA L CHIROPRAC 43853 [facility] [place] TIC 6 MANIPULAT DAMIAN TX SPINAL 1-2 REGIONS CHIROPRAC 23730 [facility] [place] TIC 6 YANG YANG MANIPULAT DAMIAN TX SPINAL 1-2 REGIONS CHIROPRAC 18987 [facility] [place] TIC 5 YANG YANG MANIPULAT DAMIAN TX SPINAL 1-2 REGIONS CHIROPRAC 47350 [facility] [place] TIC 5 YANG YANG MANIPULAT DAMIAN TX SPINAL 1-2 REGIONS OPHTH 67867 [facility] 5 GRE GRE XM&EVAL COMPRE NEW PT 1/> VST URINLS 53589 A C KILPELA DIP 5 SARATH RODRIGUEZ JEA STICK/TAB PSC LET REAGNT NON-AUTO MICRSCPY BILIRUBIN 07319 [facility] DIRECT 5 DIAGNOSTI DIAGNOSTI CS BLOOD 41259 A C NATHALIE BRY COUNT 5 SARATH RODRIGUEZ COMPLETE PSC AUTO&AUTO DIFRNTL WBC COMPREHEN 94819 [facility] SIVE 5 DIAGNOSTI DIAGNOSTI [place] [address] [facility] THYROID 5 DIAGNOSTI DIAGNOSTI STIMULATI CS CS NG HORMONE TSH CHIROPRA 36955 [facility] TIC 5 YANG YANG MANIPULAT DAMIAN TX SPINAL 1-2 REGIONS CHIROPRAC 97429 [facility] TIC 5 YANG YANG MANIPULAT DAMIAN TX SPINAL 1-2 REGIONS CHIROPRAC 90799 [facility] TIC 5 YANG YANG MANIPULAT DAMIAN TX SPINAL 1-2 REGIONS THERAPEUT 88338 A C FIELD AMB IC 5 SARATH RODRIGUEZ PROPHYLAC PSC TIC/DX INJECTION SUBQ/IM URINLS 96948 A C FIELD AMB DIP 5 SARATH RODRIGUEZ STICK/TAB PSC LET REAGNT NON-AUTO MICRSCPY INJECTION J1885 A C FIELD AMB 5 SARATH RODRIGUEZ KETOROLAC PSC TROMETHAM INE PER 15 MG CHIROPRAC 03437 [facility] [place] TIC 5 YANG YANG MANIPULAT DAMIAN TX SPINAL 1-2 REGIONS APPL 05325 [facility] [place] MODALITY 5 YANG YANG 1/> AREAS TRACTION MECHANICA L CHIROPRAC 94987 [facility] [place] TIC 5 YANG YANG MANIPULAT DAMIAN TX SPINAL 1-2 REGIONS THERAPEUT 47597 [facility] IC PX 1/> 5 YANG YANG AREAS EACH 15 MIN EXERCISES RADEX 83005 [facility] SPINE 5 [facility] CERVICAL INC INC 4 OR 5 VIEWS THERAPEUT 38254 A C GERALDOLA IC 5 SARATH RODRIGUEZ JEGilbert PROPHYLAC PSC TIC/DX INJECTION SUBQ/IM INJECTION J1885 A C KILPELA 5 SARATH OROZCO KETOROLAC PSC TROMETHAM INE PER 15 MG INJ J0702 A C YEMIPELA BETAMETHA 5 SARATH OROZCO SONE PSC ACETATE & PHOSPHATE 3 MG INJECTION J1030 A C KILPELA 5 SARATH OROZCO METHYLPRE PSC DNISOLONE ACETATE 40 MG THERAPEUT 58467 [facility] [place] IC PX 1/> 5 YANG YANG AREAS EACH 15 MIN EXERCISES APPL 50928 [facility] [place] MODALITY 5 YANG YANG 1/> AREAS TRACTION MECHANICA L CHIROPRAC 48556 [facility] TIC 5 YANG YANG MANIPULAT DAMIAN TX SPINAL 1-2 REGIONS APPL 62834 [facility] [place] MODALITY 5 YANG YANG 1/> AREAS TRACTION MECHANICA L CHIROPRAC 84082 [facility] [place] TIC 5 YANG YANG MANIPULAT DAMIAN TX SPINAL 1-2 REGIONS THERAPEUT 86214 [facility] IC PX 1/> 5 YANG YANG AREAS EACH 15 MIN EXERCISES THERAPEUT 30602 [facility] [place] IC PX 1/> 5 YANG YANG AREAS EACH 15 MIN EXERCISES APPL 15798 [facility] MODALITY 5 YANG YANG 1/> AREAS TRACTION MECHANICA L CHIROPRAC 98477 [facility] [place] TIC 5 YANG YANG MANIPULAT DAMIAN TX SPINAL 1-2 REGIONS CHIROPRAC 22629 [facility]IAM TIC 5 YANG YANG MANIPULAT DAMIAN TX SPINAL 1-2 REGIONS THERAPEUT 49968 A C FIELD AMB IC 5 SARATH RODRIGUEZ PROPHYLAC PSC TIC/DX INJECTION SUBQ/IM ECG 04449 A C FIELD AMB ROUTINE 5 SARATH RODRIGUEZ ECG PSC W/LEAST 12 LDS W/I&R INJECTION J1885 A C FIELD AMB 5 SARATH RODRIGUEZ KETOROLAC PSC TROMETHAM INE PER [address] THORAX 47791 [facility] G[facility]IE 4 MEDICAL AFIA W/CONTRAS IMAGING T ASS MATERIAL CREATININ 48176 [facility] E BLOOD 4 [place] [address] [facility] UREA 4 [facility] NITROGEN INC INC QUANTITAT DAMIAN LOCM Q9967 [facility] 300-399 4 [facility] MG/ML INC [place] [address] [facility] GOLDIE ABDOMEN & 4 MEDICAL AFIA PELVIS IMAGING W/[place] [address] [facility] TROPONIN 4 [facility] QUANTITAT INC INC DAMIAN ECG 20587 A C KILPELA ROUTINE 4 SARATH RODRIGUEZ JEA ECG PSC W/LEAST 12 LDS W/I&R URINLS 61338 A C KILPELA DIP 4 SARATH RODRIGUEZ JEA STICK/TAB PSC LET REAGNT NON-AUTO MICRSCPY RADIOLOGI 55129 [facility] C EXAM 4 MEDICAL KALPESH CHEST 2 IMAGING VIEWS ASS FRONTAL&L ATERAL COMPUTER- 73568 [facility] GOLDIE AIDED 4 AFIA AFIA DETECTION SCREENING MAMMOGRAP HY SCREENING G0202 [facility] GOLDIE 4 AFIA AFIA MAMMOGRAP HY CHERYL INCL CAD WHEN PERFORMD DUPLEX 02475 [facility] GOLDIE SCAN 4 [facility]IA [facility]IA EXTRACRAN IAL ART COMPL BI STUDY Encounters Encounter Start End Date Code Location Performer Type Date OFFICE 06815 [facility] OUTPATIEN 7 7 PHYSICIAN T VISIT S GROUP 25 MINUTES [facility] T [facility] 7 [facility] OUTPATIEN INC T OFFICE 80051 [facility] OUTPATIEN 7 7 PHYSICIAN T VISIT S GROUP 25 MINUTES OFFICE 88155 [facility] OUTPATIEN 7 7 PHYSICIAN T VISIT S GROUP 15 MINUTES EMERGENCY 19541 [facility] TILLMAN DEPT 7 7 PHYSICIAN VISIT S, PLLC HIGH SEVERITY& THREAT FUN [facility] - 7 7 [facility] OUTPATIEN INC T EMERGENCY 78625 [facility] 7 7 [facility] DEPARTMEN INC T VISIT HIGH/URGE NT SEVERITY EMERGENCY 46586 [facility] T[facility] 6 6 PHYSICIAN MARY LOU DEPART[facility], [facility] T VISIT MODERATE SEVERITY OFFICE 31139 [facility] OUTPATIEN 6 6 T NEW 10 MINUTES HOSPITAL [facility] - 6 6 N OUTPATIEN COMMUNTIY T HOSPITA EMERGENCY 79993 [facility] 6 6 N DEPARTMEN COMMUNTIY T VISIT HOSPITA MODERATE SEVERITY EMERGENCY 95716 [facility] 6 6 [facility] T VISIT SERV HIGH/URGE NT SEVERITY [facility] 6 6 [facility] OUTPATIEN INC T OFFICE 82564 [facility] OUTPATIEN 6 6 PHYSICIAN T NEW 45 S GROUP MINUTES OFFICE 07663 [facility] LONDONO 5 5 SARATH OROZCO T VISIT PSC 15 MINUTES OFFICE 75253 [facility] DIAZ 5 5 SARATH RODRIGUEZ T VISIT PSC 25 MINUTES OFFICE 21502 A C NATHALIE BRY OUTPATIEN 5 5 SARATH RODRIGUEZ T VISIT PSC 15 MINUTES OFFICE 06804 A C FIELD AMB OUTPATIEN 5 5 SARATH RODRIGUEZ T VISIT PSC 15 MINUTES [facility] - 5 5 [facility] OUTPATIEN INC T OFFICE 90922 A C KILPELA OUTPATIEN 5 5 SARATH OROZCO T VISIT PSC 15 MINUTES OFFICE 20339 [facility] OUTPATIEN 5 5 YANG Cuellar NEW 30 MINUTES OFFICE 50481 A C FIELD AMB OUTPATIEN 5 5 SARATH RODRIGUEZ T VISIT PSC 15 MINUTES OFFICE 37740 A C FIELD AMB OUTPATIEN 5 5 SARATH RODRIGUEZ T VISIT [facility] 15 MINUTES [facility] - 4 4 [facility] T [facility] 4 4 [facility] T [facility] - 4 4 [facility] OUTPATIEN INC T OFFICE 80565 A C KILPELA OUTPATIEN 4 4 SARATH OROZCO T VISIT PSC 25 MINUTES OFFICE 40813 A C KILPELA OUTPATIEN 4 4 SARAHT OROZCO T VISIT [facility] 25 MINUTES OFFICE 62144 [facility] KILPELA OUTPATIEN 4 4 PAM Cuellar VISIT 15 MINUTES [facility] - 4 4 [facility] OUTPATIEN INC T OFFICE 19296 K[facility] KILPELA OUTPATIEN 4 4 PAM Cuellar NEW 45 MINUTES
--- OUTSIDE RECORDS SUMMARY | 2017-07-17 15:04 | External Medical Summary Rpt ---
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 Name Role Phone A Mohini CLEMENS MD PSC, Gilbert Unavailable Unavailable Mohini CLEMENS MD PSC DUANE POSEY, DUANE Unavailable Unavailable KALPESH BESSON, BESSON Unavailable Unavailable MICHELLE OMAR, MICHELLE Unavailable Unavailable OMAR [facility], Unavailable Unavailable [facility] GOLDIE AFIA, Unavailable Unavailable GOLDIE AFIA G[facility], Unavailable Unavailable GOLDIE AFIA [facility] Unavailable Unavailable [facility], [facility] FIELD AM[facility], FIELD AMB Unavailable Unavailable FRYMAN, FRYMAN Unavailable Unavailable LAYNE, LAYNE Unavailable Unavailable LAYNE MARY LOU, LAYNE Unavailable Unavailable MARY LOU [facility] PAULINO RHO, PAULION Unavailable Unavailable RHO [facility] Unavailable Unavailable INC, [facility] INC [facility] Unavailable [facility]available HOSPITAL P, [facility] JACOBSON, JACOBSON Unavailable Unavailable JACOBSON, JACOBSON Unavailable Unavailable [facility], Unavailable Unavailable [facility] KEDING, KEDING Unavailable Unavailable KEDING, KEDING Unavailable Unavailable KEDING YANG, KEDING Unavailable Unavailable YANG KEDING YANG, KEDING Unavailable Unavailable YANG [facility] KILPELA JEA, KILPELA Unavailable [...] 2016 Problems Code Diagnosis DOS Provider Status [id number] MIGRAINE 06-06-2017 [place] W/AURA NOT INTRACT W/STATUS MIGRAINOSUS [id number] RADICULOPAT 06-06-2017 [place] HY CERVICAL REGION M542 CERVICALGIA 06-06-2017 [place] I10 ESSENTIAL 05-27-2017 [facility] PRIMARY PHYSICIANS HYPERTENSIO GROUP N N390 URINARY 05-27-2017 [facility] TRACT PHYSICIANS INFECTION GROUP SITE NOT SPECIFIED N939 ABNORMAL 05-27-2017 [facility] UTERINE & PHYSICIANS VAGINAL GROUP BLEEDING UNSPECIFIED R5383 OTHER 05-27-2017 [facility] FATIGUE PHYSICIANS GROUP R739 HYPERGLYCEM 05-27-2017 [facility] IA PHYSICIANS UNSPECIFIED GROUP Z1231 ENCOUNTER 03-13-2017 [facility] MAMMO MALIG INC NEOPLASM BREAST M4802 SPINAL 02-28-2017 [facility] STENOSIS PHYSICIANS CERVICAL GROUP REGION 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 [id number] PAIN IN 02-06-2017 [facility] RIGHT ARM PHYSICIANS, PLLC [id number] PAIN IN 02-06-2017 [facility] LEFT ARM PHYSICIANS GROUP [id number] PAIN IN ARM 02-06-2017 [facility] UNSPECIFIED [facility] ASS R0789 OTHER CHEST 02-06-2017 [facility] PAIN PHYSICIANS GROUP R079 CHEST PAIN 02-06-2017 [facility]PECIFIED [facility] ASS Z720 TOBACCO USE 02-06-2017 [facility] P H1033 UNSPECIFIED 10-25-2016 [facility] ACUTE PHYSICIANS, CONJUNCTIVI PLLC TIS BILATERAL H109 UNSPECIFIED 10-25-2016 [facility] PHYSICIANS, CONJUNCTIVI PLLC TIS H1013 ACUTE 10-23-2016 JACOBSON [facility] CONJUNCTIVI TIS BILATERAL [id number] PAIN IN 09-17-2016 [facility] [place] [facility] SHOULDER E77182 OTHER 09-17-2016 [place] SPECIFIED COMMUNTIY JOINT HOSPITA DISORDERS RIGHT SHOULDER M4302 SPONDYLOLYS 09-17-2016 [facility] CERVICAL N EMERGENCY REGION SERV M5030 OTH 09-17-2016 [place] CERVICAL COMMUNTIY DISC HOSPITA DEGENERATIO N UNS CERV REGION C11841 UNS ROT 09-17-2016 [place] [place] CUFF COMMUNTIY TEAR/RUPT HOSPITA RT SHLDR NOT SPEC TRAUMAT M7521 BICIPITAL 09-17-2016 [facility] TENDINITIS N EMERGENCY RIGHT SERV SHOULDER M7551 BURSITIS OF 09-17-2016 [facility] RIGHT N EMERGENCY SHOULDER SERV M7591 SHOULDER 09-17-2016 [facility] LESION N EMERGENCY UNSPECIFIED SERV RIGHT SHOULDER J32817 MIGRAINE 06-13-2016 [facility] UNS NOT PHYSICIANS INTRACT W/O GROUP STATUS MIGRAINOSUS J449 CHRONIC 06-13-2016 [facility] OBSTRUCTIVE PHYSICIANS PULMONARY GROUP DISEASE UNS K047 PERIAPICAL 06-13-2016 [facility] ABSCESS PHYSICIANS WITHOUT GROUP SINUS W23364 CELLULITIS 06-13-2016 [facility] OF HEAD ANY PHYSICIANS PART GROUP EXCEPT FACE R161 SPLENOMEGAL 06-13-2016 [facility] Y NOT PHYSICIANS ELSEWHERE GROUP CLASSIFIED Z0000 ENCOUNTER 06-13-2016 [facility] GEN ADULT PHYSICIANS MED EXAM GROUP W/O ABNORMAL FIND Z0100 ENCOUNTER 10-06-2015 ERA EXAM EYES & GRE VISION W/O ABNORMAL FIND R109 UNSPECIFIED 09-30-2015 A Mohini CLEMENS ABDOMINAL PSC PAIN R300 DYSURIA 09-30-2015 A Mohini CLEMENS MD PSC G43C0 PERIODIC 09-15-2015 A Mohini CLEMENS HEADACHE PSC SYND CHILD/ADULT NOT INTRACT L659 NONSCARRING 09-15-2015 [facility] UNSPECIFIED M797 FIBROMYALGI 09-15-2015 [facility] A [facility] Z8379 FAMILY 09-15-2015 [facility] OTHER DISEASES DIGESTIVE SYSTEM 7231 CERVICALGIA 08-02-2015 [place] YANG 35894 SPASM OF 08-02-2015 [facility] SORIA MUSCLE 45494 MIGRAINE 05-17-2015 A Mohini CLEMENS UNSP W/O PSC INTRACT W/O STATUS MIGRAINOSUS 87544 HEMIPLEGIC 04-19-2015 A Mohini CLMEENS MIGRAINE PSC W/INTRACTAB LE W/O SM 7881 DYSURIA 04-19-2015 A Mohini CLEMENS MD PSC 99569 CHRONIC 02-18-2015 A Mohini CLEMENS MIGRAINE PSC W/O AURA W/O INTRACTABLE W/O SM 496 CHRONIC 02-18-2015 A Mohini CLEMENS AIRWAY PSC OBSTRUCTION NEC 29628 OTHER CHEST 02-17-2015 A Mohiin CLEMENS PAIN PSC 55369 SHORTNESS 09-10-2014 [facility] 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 09-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 [facility] PULMONARY [facility] NODULE INC 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 IM[facility] 5718 OTHER 08-20-2014 [facility] CHRONIC [facility]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 01198 ABDOMINAL 08-20-2014 [facility] PAIN, [facility] UNSPECIFIED INC SITE 10783 ABDOMINAL 08-20-2014 [facility], MEDICAL EPIGASTRIC IMAGING ASS 47063 CHEST PAIN 08-12-2014 A Mohini CLEMENS UNSPECIFIED [facility] V7612 OTHER 08-12-2014 [facility] SCREENING [facility] MAMMOGRAM INC 7245 UNSPECIFIED 08-11-2014 A Mohini CLEMENS BACKACHE PSC 4011 ESSENTIAL 12-30-2013 KILPEKIRA PADILLAA HYPERTENSIO N, BENIGN 7821 RASH AND 12-30-2013 KILPELA JEA OTHER NONSPECIFIC SKIN ERUPTION 4471 STRICTURE 12-25-2013 [facility] OF ARTERY AFIA 76468 OTHER 12-25-2013 [facility] SYMPTOMS [facility] INVOLVING INC HEAD AND NECK 1330 SCABIES 12-17-2013 KILPELA JEA Medications Na ND Rx Da Fi Fi [...] 00 1- 1- 00 00 SI ve RI 51 20 20 49 DE IL 80 [...] 00 4- 4- 00 00 SI ve RI 51 20 20 47 DE IL 80 [...] 48 DE ZA 11 17 17 18 RI 0 29 PH IN AR E MA [...] 00 5- 4- 00 00 SI ve RI 51 20 20 47 DE IL 80 17 17 98 -H [address] AR Z MA 10 CY -1 2. OF 5 CY MG NT HI TA AN B A IN C LI 68 01 01 0 40 4 EA 47 GA Ac SI 18 -0 -[address] 17 IN ti NO 00 9- 0- 00 SI 28 EY ve RI 51 20 20 DE IL 80 17 17 KS -H [address] AR AE Z MA L 10 CY S -1 2. OF 5 MG CY NT TA HI B AN A Procedures Procedure DOS Code Location Performer Comment [facility] 00116 STEWART WILLIAM TIC 7 MANIPULAT [place] SPINAL 1-2 REGIONS APPL 08187 STEWART WILLIAM MODALITY 7 1/> AREAS TRACTION MECHANICA L CHIROPRAC 10219 [facility] TIC 7 MANIPULAT [place] SPINAL 1-2 REGIONS APPL 90791 STEWART [place] MODALITY 7 1/> AREAS TRACTION MECHANICA L SCREENING 08103 [facility] 7 [facility] MAMMOGRAP INC INC HY BI 2-VIEW BREAST INC CAD RHEUMATOI 77187 [facility] Jason FACTOR 7 [facility] QUANTITAT INC INC DAMIAN THERAPEUT 81532 [facility] IC 7 PHYSICIAN PHYSICIAN PROPHYLAC S GROUP S GROUP TIC/DX INJECTION SUBQ/IM CYANOCOBA 07254 [facility] [place] IGNACIA 7 [facility] VITAMIN INC INC B-12 COMPREHEN 65914 [facility] SIVE 7 [facility] [place] [address] [facility] [place] FOLIC 7 [facility] [place] [address] [facility] [place] FREE 7 [facility] [place] [address] [facility] [place] THYROID 7 [facility] STIMULATI INC INC NG HORMONE TSH CHIROPRAC 86567 [facility] WILLIAM TIC 7 MANIPULAT [place] SPINAL 1-2 REGIONS APPL 40497 STEWART WILLIAM MODALITY 7 1/> AREAS TRACTION MECHANICA L COMPREHEN 24699 [facility] SIVE 7 [facility] METABOLIC INC INC PANEL CREATINE 30377 [facility] [place] KINASE MB 7 [facility] [place] [address] [facility] TROPONIN 7 [facility] QUANTITAT INC INC DAMIAN BLOOD 50441 [facility] COUNT 7 [facility] COMPLETE INC INC AUTO&AUTO DIFRNTL WBC THERAPEUT 02664 [facility] [place] IC 7 [facility] INJECTION INC INC IV PUSH EACH NEW DRUG ECG 02184 [facility] IGNACIO ROUTINE 7 [facility] W/LEAST P 12 LDS I&R ONLY CREATINE 79513 [facility] BHAT KINASE 7 [facility] TOTAL INC THER 22245 [facility] [place] PROPH/DX 7 [facility] NJX IV INC INC PUSH SINGLE/1S T SBST/DRUG ECG 35456 [facility] [place] ROUTINE 7 [facility] ECG INC INC W/LEAST 12 LDS TRCG ONLY W/O I&R RADIOLOGI 47496 [facility] [place] C 7 [facility] EXAMINATI INC INC ON CHEST SINGLE VIEW FRONTAL CHIROPRAC 06882 [facility]IAM TIC 7 MANIPULAT [place] SPINAL 1-2 REGIONS APPL 64938 [facility] [place] MODALITY 7 1/> AREAS TRACTION MECHANICA L CHIROPRAC 77901 [place] TIC 7 MANIPULAT [place] SPINAL 1-2 REGIONS CHIROPRA 78103 [place] TIC 7 MANIPULAT [place] SPINAL 1-2 REGIONS CHIROPRAC 27356 [place] TIC 6 YANG YANG MANIPULAT [place] SPINAL 1-2 REGIONS CHIROPRA 18742 [place] TIC 6 YANG YANG MANIPULAT [place] SPINAL 1-2 REGIONS CHIROPRA 23107 [place] TIC 6 YANG YANG MANIPULAT [place] SPINAL 1-2 REGIONS RADEX 86322 [facility] SPINE 6 N N CERVICAL COMMUNTIY COMMUNTIY 2 OR 3 HOSPITA HOSPITA VIEWS INJECTION J1885 [facility] 6 N N KETOROLAC COMMUNTIY COMMUNTIY HOSPITA HOSPITA TROMETHAM INE PER 15 MG INJECTION J2360 [facility] 6 N N ORPHENADR COMMUNTIY COMMUNTIY INE HOSPITA HOSPITA CITRATE UP TO 60 MG THERAPEUT 51072 [facility] IC 6 N N PROPHYLAC COMMUNTIY COMMUNTIY TIC/DX HOSPITA HOSPITA INJECTION SUBQ/IM RADEX 66017 [facility] SPINE 6 RADIOLOGY RHO CERVICAL 4 OR 5 VIEWS RADEX 51807 [facility] [place] [facility] SHOULDER 6 RADIOLOGY RHO COMPLETE MINIMUM 2 [facility]WS [facility] SOLIS TIC 6 YANG BRY MANIPULAT DAM[place] SPINAL 1-2 REGIONS CHIROPRA 08509 STEWART VALEROILL TIC 6 YANG OMAR MANIPULAT [place] SPINAL 1-2 REGIONS CHIROPRAC 77777 [facility] WILLIAM TIC 6 YANG YANG MANIPULAT [place] SPINAL 1-2 REGIONS COMPREHEN 54812 [facility] SIVE 6 [facility] [place] [address] [facility] FREE 6 [facility] [place] [address] [facility] THYROID 6 [facility] STIMULATI INC INC NG HORMONE TSH ANTIBODY 51132 [facility] JS-B 6 [facility] ARR EB INC INC VIRUS NUCLEAR AG EBNA COLLECTIO 98715 [facility] MERCEDES MERLOS N VENOUS 6 PHYSICIAN BLOOD S GROUP VENIPUNCT URE IMMUNOASS 57989 [facility] [place] AY NFCT 6 [facility] AGT ANTB INC INC QUAL/SEMI CONNER 1 STEP ANTIBODY 30836 [facility] JS-B 6 [facility] ARR EB INC INC VIRUS VIRAL CAPSID VCA BLOOD 85677 [facility] COUNT 6 [facility] COMPLETE INC INC AUTO&AUTO DIFRNTL WBC CHIROPRAC 07924 [place] TIC 6 YANG YANG MANIPULAT DAM[place] SPINAL 1-2 REGIONS CHIROPRAC 01211 [place] TIC 6 YANG YANG MANIPULAT [place] SPINAL 1-2 REGIONS THERAPEUT 78775 [place] IC PX 1/> 6 AREAS EACH 15 MIN EXERCISES CHIROPRAC 74833 [place] TIC 6 MANIPULAT [place] SPINAL 1-2 REGIONS APPL 43783 [place] MODALITY 6 1/> AREAS TRACTION MECHANICA L CHIROPRAC 22728 [place] TIC 6 YANG YANG MANIPULAT [place] SPINAL 1-2 REGIONS CHIROPRAC 67455 [place] TIC 6 YANG YANG MANIPULAT DAM[place] SPINAL 1-2 REGIONS CHIROPRAC 07597 [place] TIC 6 MANIPULAT [place] SPINAL 1-2 REGIONS APPL 53651 [place] MODALITY 6 1/> AREAS TRACTION MECHANICA L THERAPEUT 84502 [place] IC PX 1/> 6 AREAS EACH 15 MIN EXERCISES CHIROPRAC 87569 [place] TIC 6 YANG YANG MANIPULAT DAM[place] SPINAL 1-2 REGIONS CHIROPRAC 39273 [place] TIC 5 YANG YANG MANIPULAT [place] SPINAL 1-2 REGIONS CHIROPRAC 48608 [place] TIC 5 YANG YANG MANIPULAT DAM[place] TX SPINAL 1-[address] [facility] 5 GRE GRE XM&EVAL COMPRE NEW PT 1/> VST URINLS 78095 A C KILPELA DIP 5 SARATH RODRIGUEZ JEA STICK/TAB PSC LET REAGNT NON-AUTO MICRSCPY BILIRUBIN 82475 [facility] DIRECT 5 [place] [address] [facility] THYROID 5 DIAGNOSTI DIAGNOSTI STIMULATI CS CS NG HORMONE TSH COMPREHEN 11550 [facility] SIVE 5 DIAGNOSTI DIAGNOSTI METABOLIC CS CS PANEL BLOOD 72283 A C NATHALIE BRY COUNT 5 SARATH RODRIGUEZ COMPLETE PSC AUTO&AUTO DIFRNTL WBC CHIROPRAC 85754 [facility] WILLIAM TIC 5 YANG YANG MANIPULAT DAMIAN TX SPINAL 1-2 REGIONS CHIROPRAC 76071 [facility] WILLIAM TIC 5 YANG YANG MANIPULAT DAMIAN TX SPINAL 1-2 REGIONS CHIROPRAC 07071 [facility] WILLIAM TIC 5 YANG YANG MANIPULAT DAMIAN TX SPINAL 1-2 REGIONS THERAPEUT 42814 A C FIELD AMB IC 5 SARATH RODRIGUEZ PROPHYLAC PSC TIC/DX INJECTION SUBQ/IM URINLS 03509 A C FIELD AMB DIP 5 SARATH RODRIGUEZ STICK/TAB PSC LET REAGNT NON-AUTO MICRSCPY INJECTION J1885 A C FIELD AMB 5 SARATH RODRIGUEZ KETOROLAC PSC TROMETHAM INE PER 15 MG CHIROPRAC 20463 [facility] WILLIAM TIC 5 YANG YANG MANIPULAT DAM[place] SPINAL 1-2 REGIONS CHIROPRAC 08664 [facility] WILLIAM TIC 5 YANG YANG MANIPULAT DAMIAN [place] SPINAL 1-2 REGIONS APPL 82700 [facility] WILLIAM MODALITY 5 YANG YANG 1/> AREAS TRACTION MECHANICA L THERAPEUT 20253 STEW[facility] WILLIAM IC PX 1/> 5 YANG YANG AREAS EACH 15 MIN EXERCISES RADEX 66529 [facility] SPINE 5 MEDICAL AFIA CERVICAL IMAGING 4 OR 5 ASS VIEWS THERAPEUT 52042 A C KILPELA IC 5 SARATH OROZCO PROPHYLAC PSC TIC/DX INJECTION SUBQ/IM INJECTION J1030 A C KILPELA 5 SARATH OROZCO METHYLPRE PSC DNISOLONE ACETATE 40 MG INJ J0702 A Mohini KYLE BETAMETHA 5 SARATH RODRIGUEZ VALERIEGilbert SONE PSC ACETATE & PHOSPHATE 3 MG INJECTION J1885 A Mohini BRAGGPELA 5 SARATH OROZCO KETOROLAC PSC TROMETHAM INE PER 15 MG THERAPEUT 54369 [place] IC PX 1/> 5 YANG YANG AREAS EACH 15 MIN EXERCISES CHIROPRAC 24447 [place] TIC 5 YANG YANG MANIPULAT DAMIAN [place] SPINAL 1-2 REGIONS APPL 99045 [place] MODALITY 5 YANG YANG 1/> AREAS TRACTION MECHANICA L CHIROPRAC 89532 [place] TIC 5 YANG YANG MANIPULAT DAMIAN TX SPINAL 1-2 REGIONS APPL 81027 [place] MODALITY 5 YANG YANG 1/> AREAS TRACTION MECHANICA L THERAPEUT 27725 [place] IC PX 1/> 5 YANG YANG AREAS EACH 15 MIN EXERCISES THERAPEUT 23667 [place] IC PX 1/> 5 YANG YANG AREAS EACH 15 MIN EXERCISES CHIROPRAC 38122 [place] TIC 5 YANG YANG MANIPULAT DAMIAN TX SPINAL 1-2 REGIONS APPL 70631 [place] MODALITY 5 YANG YANG 1/> AREAS TRACTION MECHANICA L CHIROPRAC 39999 [place] TIC 5 YANG YANG MANIPULAT DAMIAN TX SPINAL 1-2 REGIONS ECG 47130 A C FIELD AMB ROUTINE 5 SARATH RODRIGUEZ ECG PSC W/LEAST 12 LDS W/I&R THERAPEUT 48447 A C FIELD AMB IC 5 SARATH RODRIGUEZ PROPHYLAC PSC TIC/DX INJECTION SUBQ/IM INJECTION J1885 A C AMB 5 SARATH RODRIGUEZ KETOROLAC PSC TROMETHAM INE PER [address] THORAX 13616 [facility] W/CONTRAS INC INC T MATERIAL CREATININ 55972 [facility] E BLOOD 4 [facility] INC INC LOCM Q9967 [facility] 300-399 4 [facility] MG/ML INC INC IOD[place] [address] [facility] UREA 4 [facility] [place] [address] [facility] ABDOMEN & 4 [facility] PELVIS INC INC W/O CONTRAST MATERIAL ECG 56096 A C KILPELA ROUTINE 4 SARATH RODRIGUEZ JEA ECG PSC W/LEAST 12 LDS W/I&[place] [address] [facility] TROPONIN 4 [facility] QUANTITAT INC INC DAMIAN URINLS 14449 A C KILPELA DIP 4 SARATH RODRIGUEZ JEA STICK/TAB PSC LET REAGNT NON-AUTO MICRSCPY RADIOLOGI 80633 [facility] C EXAM 4 MEDICAL KALPESH CHEST 2 IMAGING VIEWS ASS FRONTAL&L ATERAL SCREENING G0202 [facility] 4 [facility] MAMMOGRAP INC INC HY CHERYL INCL CAD WHEN PERFORMD COMPUTER- 26766 [facility] AIDED 4 [facility] DETECTION INC INC SCREENING MAMMOGRAP HY DUPLEX 37596 [facility] [place] SCAN 4 [facility] EXTRACRAN INC INC IAL ART COMPL BI STUDY Encounters Encounter Start End Date Code Location Performer Type Date OFFICE 04196 [facility] FRYMAN OUTPATIEN 7 7 PHYSICIAN T VISIT S GROUP 25 MINUTES [facility] - 7 7 [facility] OUTPATIEN INC T OFFICE 80435 [facility] FRYMAN OUTPATIEN 7 7 PHYSICIAN T VISIT S GROUP 25 MINUTES [facility] - 7 7 [facility] OUTPATIEN INC T OFFICE 00733 [facility] FRYMAN OUTPATIEN 7 7 PHYSICIAN T VISIT S GROUP 15 MINUTES EMERGENCY 96600 SUSAN TILLMAN DEPT 7 7 PHYSICIAN VISIT S, PLLC HIGH SEVERITY& THREAT [facility] - 7 7 [facility] OUTPATIEN INC T EMERGENCY 27945 [facility] 7 7 [facility] DEPARTMEN INC T VISIT HIGH/URGE NT SEVERITY EMERGENCY 24632 SUSAN TILLMAN 6 6 [facility]IC[facility] T VISIT MODERATE SEVERITY OFFICE 47673 KAVON JACOBSON OUTPATIEN 6 6 T NEW 10 MINUTES EMERGENCY 15702 COUNTS INCLUDE 234 [facility]EDS AT [facility] 6 6 [facility] DI T [facility]ISIT SERV HIGH/URGE NT SEVERITY [facility] - 6 6 N OUTPATIEN COMMUNTIY T HOSPITA EMERGENCY 76237 [facility] 6 6 N DEPARTMEN COMMUNTIY T VISIT [facility] SE[facility] - 6 6 [facility] OUTPATIEN INC T OFFICE 08216 [facility] MERCEDES MERLOS OUTPATIEN 6 6 PHYSICIAN T NEW 45 S GROUP MINUTES OFFICE 69578 A C KILPELA OUTPATIEN 5 5 SARATH OROZCO T VISIT PSC 15 MINUTES OFFICE 71103 A C NATHALIE BRY OUTPATIEN 5 5 SARATH RODRIGUEZ T VISIT PSC 25 MINUTES OFFICE 93019 A C NATHALIE BRY OUTPATIEN 5 5 SARATH RODRIGUEZ T VISIT PSC 15 MINUTES OFFICE 64011 A C FIELD AMB OUTPATIEN 5 5 SARATH RODRIGUEZ T VISIT PSC 15 MINUTES HOSPITAL [facility] - 5 5 [facility] OUTPATIEN INC T OFFICE 51517 A C KILPELA OUTPATIEN 5 5 SARATH OROZCO T VISIT PSC 15 MINUTES OFFICE 85171 [facility] OUTPATIEN 5 5 YANG SORIA T NEW 30 MINUTES OFFICE 88319 A C FIELD AMB OUTPATIEN 5 5 SARATH RODRIGUEZ T VISIT PSC 15 MINUTES OFFICE 22690 A C FIELD AMB OUTPATIEN 5 5 SARATH RODRIGUEZ T VISIT [facility] 15 MINUTES HOSPITAL [facility] - 4 4 [facility] OUTPATIEN [facility] - 4 4 [facility] OUTPATIEN [facility] T OFFICE 52129 A C KILPELA OUTPATIEN 4 4 SARATH Cuellar VISIT [facility] 25 MINUTES [facility] - 4 4 [facility] OUTPATIEN [facility] T OFFICE 17760 A C KILPELA OUTPATIEN 4 4 SARATH Cuellar VISIT [facility] 25 MINUTES OFFICE 93203 KILPELA KILPELA OUTPATIEN 4 4 PAM Cuellar VISIT 15 MINUTES HOSPITAL [facility] - 4 4 [facility] OUTPATIEN [facility] T OFFICE 46834 KILPELA KILPELA OUTPATIEN 4 4 PAM Cuellar NEW 45 MINUTES
--- OUTSIDE RECORDS SUMMARY | 2017-07-17 15:04 | External Medical Summary Rpt ---
Author Author , VIN BANUELOS Address Unknown Phone [email or web address] Care Team Providers Care Drug Regulatory Affairs Specialist Name Role Phone A Mohini CLEMENS MD PSC, Gilbert Unavailable Unavailable Mohini CLEMENS MD PSC DUANE POSEY, DUANE Unavailable Unavailable KALPESH BESSON, BESSON Unavailable Unavailable MICHELLE OMAR, MICHELLE Unavailable Unavailable OMAR [facility], Unavailable Unavailable [facility] GOLDIE AFIA, Unavailable Unavailable GOLDIE AFIA GOLDIE AFIA, Unavailable Unavailable GOLDIE AFIA [facility] Unavailable Unavailable [facility], [facility], FIELD AMB Unavailable Unavailable FRYMAN, FRYMAN Unavailable Unavailable LAYNE, LAYNE Unavailable Unavailable LAYNE MARY LOU, LAYNE Unavailable Unavailable MARY LOU [facility] PAULINO RHO, PAULINO Unavailable Unavailable RHO [facility] Unavailable Unavailable INC, [facility] Unavailable Unavailable HOSPITAL P, [facility] JACOBSON, JACOBSON Unavailable Unavailable JACOBSON, JACOBSON Unavailable Unavailable [facility], Unavailable Unavailable [facility] KEDING, KEDING Unavailable Unavailable KEDING, KEDING Unavailable Unavailable KEDING YANG, KEDING Unavailable Unavailable YANG [place]ED[place] YANG, KEDING Unavailable Unavailable YANG [facility] KILPELA JEA, KILPELA Unavailable [...] 2016 Problems Code Diagnosis DOS Provider Status [id number] MIGRAINE 06-06-2017 [place] W/AURA NOT INTRACT W/STATUS MIGRAINOSUS [id number] RADICULOPAT 06-06-2017 [place] HY CERVICAL REGION M542 CERVICALGIA 06-06-2017 [place] I10 ESSENTIAL 05-27-[address] [facility] PRIMARY PHYSICIANS HYPERTENSIO GROUP N N390 URINARY 05-27-[address] [facility] TRACT PHYSICIANS INFECTION GROUP SITE NOT SPECIFIED N939 ABNORMAL 05-27-[address] [facility] UTERINE & PHYSICIANS VAGINAL GROUP BLEEDING UNSPECIFIED R5383 OTHER 05-27-[address] [facility] FATIGUE PHYSICIANS GROUP R739 HYPERGLYCEM 05-27-[address] [facility] IA PHYSICIANS UNSPECIFIED GROUP Z1231 ENCOUNTER 03-13-2017 [facility] MAMMO MALIG INC NEOPLASM BREAST M4802 SPINAL 02-28-[address] 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 RIGHT ARM PHYSICIANS, PLLC J69154 PAIN IN 02-06-[address] [facility] LEFT ARM PHYSICIANS GROUP [id number] PAIN IN ARM 02-06-2017 [place] [facility] UNSPECIFIED IM[facility]ING ASS R0789 OTHER CHEST 02-06-[address] [facility] PAIN PHYSICIANS GROUP R079 CHEST PAIN 02-06-2017 [place] UNSPECIFIED [facility]ICAL IMAGING ASS Z720 TOBACCO USE 02-06-2017 [facility] P H1033 UNSPECIFIED 10-25-[address] [facility] ACUTE PHYSICIANS, CONJUNCTIVI PLLC TIS BILATERAL H109 UNSPECIFIED 10-25-[address] [facility] PHYSICIANS, CONJUNCTIVI PLLC TIS H1013 ACUTE 10-23-2016 JACOBSON [facility] CONJUNCTIVI TIS BILATERAL C43824 PAIN IN 09-17-2016 [facility] [place] [facility] SHOULDER [id number] OTHER 09-17-2016 [place] SPECIFIED COMMUNTIY JOINT HOSPITA DISORDERS RIGHT SHOULDER M4302 SPONDYLOLYS 09-17-2016 [facility] CERVICAL N EMERGENCY REGION SERV M5030 OTH 09-17-2016 [place] CERVICAL COMMUNTIY DISC HOSPITA DEGENERATIO N UNS CERV REGION S77340 UNS ROT 09-17-2016 [place] CUFF COMMUNTIY TEAR/RUPT HOSPITA RT SHLDR NOT SPEC TRAUMAT M7521 BICIPITAL 09-17-2016 [facility] TENDINITIS N EMERGENCY RIGHT SERV SHOULDER M7551 BURSITIS OF 09-17-2016 [facility] RIGHT N EMERGENCY SHOULDER SERV M7591 SHOULDER 09-17-2016 [facility] LESION N EMERGENCY UNSPECIFIED SERV RIGHT SHOULDER O68967 MIGRAINE 06-13-[address] [facility] UNS NOT PHYSICIANS INTRACT W/O GROUP STATUS MIGRAINOSUS J449 CHRONIC 06-13-[address] [facility] OBSTRUCTIVE PHYSICIANS PULMONARY GROUP DISEASE UNS K047 PERIAPICAL 06-13-[address] [facility] ABSCESS PHYSICIANS WITHOUT GROUP SINUS I52915 CELLULITIS 06-13-[address] [facility] OF HEAD ANY PHYSICIANS PART GROUP EXCEPT FACE R161 SPLENOMEGAL 06-13-[address] [facility] Y NOT PHYSICIANS ELSEWHERE GROUP CLASSIFIED Z0000 ENCOUNTER 06-13-[address] [facility] GEN ADULT PHYSICIANS MED EXAM GROUP W/O [...] DIGESTIVE SYSTEM 7231 CERVICALGIA 08-02-2015 [place] YANG 03250 SPASM OF 08-02-2015 [facility] SORIA MUSCLE 22221 MIGRAINE 05-17-2015 A Mohini CLEMENS UNSP W/O PSC INTRACT W/O STATUS MIGRAINOSUS 28215 HEMIPLEGIC 04-19-2015 A Mohini CLEMENS MIGRAINE PSC W/INTRACTAB LE W/O SM 7881 DYSURIA 04-19-2015 A Mohini CLEMENS MD PSC 57894 CHRONIC 02-18-2015 A Mohini CLEMENS MIGRAINE PSC W/O AURA W/O INTRACTABLE W/O SM 496 CHRONIC 02-18-2015 A Mohini CLEMENS AIRWAY PSC OBSTRUCTION NEC 05800 OTHER CHEST 02-17-2015 A Mohini CLEMENS PAIN PSC 63654 SHORTNESS 09-10-2014 [place] [facility] 13900 SOLITARY 09-10-2014 [facility] PULMONARY [facility] NODULE INC 60277 DIVERTICULO 08-20-2014 [place] SIS OF MEDICAL COLON IMAGING ASS 5718 OTHER 08-20-2014 [place] CHRONIC MED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 98732 ABDOMINAL 08-20-2014 [facility] PAIN, [facility] UNSPECIFIED INC SITE 05992 ABDOMINAL 08-20-2014 [facility], MEDICAL EPIGASTRIC IMAGING ASS 97287 CHEST PAIN 08-12-2014 A Mohini CLEMENS UNSPECIFIED [facility] V7612 OTHER 08-12-2014 [facility] SCREENING [facility] MAMMOGRAM INC 7245 UNSPECIFIED 08-11-2014 A Mohini CLEMENS BACKACHE PSC 4011 ESSENTIAL 12-30-2013 KILPEKIRA PADILLAA HYPERTENSIO N, BENIGN 7821 RASH AND 12-30-2013 KILPELA JEA OTHER NONSPECIFIC SKIN ERUPTION 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 OF 5 CY MG NT HI TA AN B A IN C LI 68 01 01 0 40 4 EA 47 GA Ac SI 18 -0 -[address] 17 IN ti NO 00 9- 0- 00 SI 28 EY ve NC 51 20 20 DE IL 80 17 17 AZ -H [address] AR AE Z MA L 10 CY S -1 2. OF 5 MG CY NT TA HI B AN A Procedures Procedure DOS Code Location Performer Comment [facility] 19525 [facility] WILLIAM TIC 7 MANIPULAT [place] SPINAL 1-2 REGIONS APPL 91636 [facility] WILLIAM MODALITY 7 1/> AREAS TRACTION MECHANICA L CHIROPRAC 99943 [facility] TIC 7 MANIPULAT [place] SPINAL 1-2 REGIONS APPL 98615 [facility] [place] MODALITY 7 1/> AREAS TRACTION MECHANICA L SCREENING 60394 [facility]AND 7 [facility] MAMMOGRAP INC INC HY BI 2-VIEW BREAST INC CAD RHEUMATOI 59347 [facility] Jason FACTOR 7 [facility] QUANTITAT INC INC DAMIAN THERAPEUT 71527 [facility] IC 7 PHYSICIAN PHYSICIAN PROPHYLAC S GROUP S GROUP TIC/DX INJECTION SUBQ/IM CYANOCOBA 11119 [facility] IGNACIA 7 [facility] VITAMIN INC INC B-12 COMPREHEN 09861 [facility] SIVE 7 [facility] [place] [address] [facility] FOLIC 7 [facility] [place] [address] [facility] [place] FREE 7 [facility] [place] [address] [facility] THYROID 7 [facility] STIMULATI INC INC NG HORMONE TSH CHIROPRAC 14149 [facility] WILLIAM TIC 7 MANIPULAT [place] SPINAL 1-2 REGIONS APPL 87032 [facility] WILLIAM MODALITY 7 1/> AREAS TRACTION MECHANICA L COMPREHEN 45172 [facility] SIVE 7 [facility] METABOLIC INC INC PANEL CREATINE 95107 [facility] [facility] KINASE MB 7 [facility] [place] [address] [facility] TROPONIN 7 [facility] QUANTITAT INC INC DAMIAN BLOOD 73376 [facility]AL[place] EN[place] COUNT 7 [facility] COMPLETE INC INC AUTO&AUTO DIFRNTL WBC THERAPEUT 93410 [facility] [place] IC 7 [facility] INJECTION INC INC IV PUSH EACH NEW DRUG ECG 01864 [facility] IGNACIO ROUTINE 7 [facility] W/LEAST P 12 LDS I&R ONLY CREATINE 13879 [facility] BHAT KINASE 7 [facility] TOTAL INC THER 42582 [facility] [place] PROPH/DX 7 [facility] NJX IV INC INC PUSH SINGLE/1S T SBST/DRUG ECG 69880 [facility] [place] ROUTINE 7 [facility] ECG INC INC W/LEAST 12 LDS TRCG ONLY W/O I&R RADIOLOGI 03919 [facility] [place] C 7 [facility] EXAMINATI INC INC ON CHEST SINGLE VIEW FRONTAL CHIROPRAC 46841 [facility]IAM TIC 7 MANIPULAT [place] SPINAL 1-2 REGIONS APPL 65324 [facility] [place] MODALITY 7 1/> AREAS TRACTION MECHANICA L CHIROPRAC 97547 [place] TIC 7 MANIPULAT [place] SPINAL 1-2 REGIONS CHIROPRA 54488 [place] TIC 7 MANIPULAT [place] SPINAL 1-2 REGIONS CHIROPRAC 66693 [place] TIC 6 YANG YANG MANIPULAT [place] SPINAL 1-2 REGIONS CHIROPRA 54938 [facility] TIC 6 YANG YANG MANIPULAT [place] SPINAL 1-2 REGIONS CHIROPRA 37407 [facility] TIC 6 YANG YANG MANIPULAT [place] SPINAL 1-2 REGIONS RADEX 84968 [facility] SPINE 6 N N CERVICAL COMMUNTIY COMMUNTIY 2 OR 3 HOSPITA HOSPITA VIEWS INJECTION J1885 [facility] 6 N N KETOROLAC COMMUNTIY COMMUNTIY HOSPITA HOSPITA TROMETHAM INE PER 15 MG INJECTION J2360 [facility] 6 N N ORPHENADR COMMUNTIY COMMUNTIY INE HOSPITA HOSPITA CITRATE UP TO 60 MG THERAPEUT 37777 [facility] IC 6 N N PROPHYLAC COMMUNTIY COMMUNTIY TIC/DX HOSPITA HOSPITA INJECTION SUBQ/IM RADEX 51263 [facility] [place] [facility] SPINE 6 RADIOLOGY RHO CERVICAL 4 OR 5 VIEWS RADEX 20289 [facility] [place] [facility] SHOULDER 6 RADIOLOGY RHO COMPLETE MINIMUM 2 [facility]WS [facility] 532[facility] SOLIS TIC 6 YANG BRY MANIPULAT [place] SPINAL 1-2 REGIONS CHIROPRA 76638 ST[facility] VALEROILL TIC 6 YANG OMAR MANIPULAT [place] SPINAL 1-2 REGIONS CHIROPRAC 04952 [facility] WILLIAM TIC 6 YANG YANG MANIPULAT [place] SPINAL 1-2 REGIONS COMPREHEN 05601 [facility] SIVE 6 [facility] [place] [address] [facility] FREE 6 [facility] [place] [address] [facility] THYROID 6 [facility] STIMULATI INC INC NG HORMONE TSH ANTIBODY 41944 [facility] [place] JS-B 6 [facility] ARR EB INC INC VIRUS NUCLEAR AG EBNA COLLECTIO [address] [facility] N VENOUS 6 PHYSICIAN BLOOD S GROUP VENIPUNCT URE IMMUNOASS 25794 [facility] [place] AY NFCT 6 [facility] AGT ANTB INC INC QUAL/SEMI CONNER 1 STEP ANTIBODY 79517 [facility] [place] JS-B 6 [facility] ARR EB INC INC VIRUS VIRAL CAPSID VCA BLOOD 30246 [facility] [place] COUNT 6 [facility] COMPLETE INC INC AUTO&AUTO DIFRNTL WBC CHIROPRAC 07084 [place] TIC 6 YANG YANG MANIPULAT [place] SPINAL 1-2 REGIONS CHIROPRAC 83397 [place] TIC 6 YANG YANG MANIPULAT [place] SPINAL 1-2 REGIONS THERAPEUT 01841 [place] IC PX 1/> 6 AREAS EACH 15 MIN EXERCISES CHIROPRAC 25858 [place] TIC 6 MANIPULAT [place] SPINAL 1-2 REGIONS APPL 32837 [place] MODALITY 6 1/> AREAS TRACTION MECHANICA L CHIROPRAC 70686 [place] TIC 6 YANG YANG MANIPULAT [place] SPINAL 1-2 REGIONS CHIROPRAC 72428 [place] TIC 6 YANG YANG MANIPULAT [place] SPINAL 1-2 REGIONS CHIROPRAC 89617 [place] TIC 6 MANIPULAT [place] SPINAL 1-2 REGIONS APPL 26310 [place] MODALITY 6 1/> AREAS TRACTION MECHANICA L THERAPEUT 94324 [place] IC PX 1/> 6 AREAS EACH 15 MIN EXERCISES CHIROPRAC 09844 [place] TIC 6 YANG YANG MANIPULAT DAM[place] TX SPINAL 1-2 REGIONS CHIROPRAC 84835 [place] TIC 5 YANG YANG MANIPULAT [place] SPINAL 1-2 REGIONS CHIROPRAC 61392 [place] TIC 5 YANG YANG MANIPULAT [place] SPINAL 1-2 REGIONS OPHTH 66485 [facility] 5 GRE GRE XM&EVAL COMPRE NEW PT 1/> VST URINLS 37119 A C KILPELA DIP 5 SARATH RODRIGUEZ JEA STICK/TAB PSC LET REAGNT NON-AUTO MICRSCPY BILIRUBIN 92827 [facility] DIRECT 5 [place] [address] [facility] THYROID 5 DIAGNOSTI DIAGNOSTI STIMULATI CS CS NG HORMONE TSH COMPREHEN 53220 [facility] SIVE 5 DIAGNOSTI DIAGNOSTI METABOLIC CS CS PANEL BLOOD 02444 A C NATHALIE BRY COUNT 5 SARATH RODRIGUEZ COMPLETE PSC AUTO&AUTO DIFRNTL WBC CHIROPRAC 14710 [facility] WILLIAM TIC 5 YANG YANG MANIPULAT DAM[place] SPINAL 1-2 REGIONS CHIROPRAC 74307 [facility] WILLIAM TIC 5 YANG YANG MANIPULAT DAM[place] SPINAL 1-2 REGIONS CHIROPRAC 75943 [facility] WILLIAM TIC 5 YANG YANG MANIPULAT DAMIAN TX SPINAL 1-2 REGIONS THERAPEUT 63662 A C FIELD AMB IC 5 SARATH RODRIGUEZ PROPHYLAC PSC TIC/DX INJECTION SUBQ/IM URINLS 62330 A C FIELD AMB DIP 5 SARATH RODRIGUEZ STICK/TAB PSC LET REAGNT NON-AUTO MICRSCPY INJECTION J1885 A C FIELD AMB 5 SARATH RODRIGUEZ KETOROLAC PSC TROMETHAM INE PER 15 MG CHIROPRAC 94050 [facility] WILLIAM TIC 5 YANG YANG MANIPULAT DAM[place] SPINAL 1-2 REGIONS CHIROPRAC 19249 [facility] WILLIAM TIC 5 YANG YANG MANIPULAT DAM[place] SPINAL 1-2 REGIONS APPL 74667 [facility] WILLIAM MODALITY 5 YANG YANG 1/> AREAS TRACTION MECHANICA L THERAPEUT 20105 [facility] WILLIAM IC PX 1/> 5 YANG YANG AREAS EACH 15 MIN EXERCISES RADEX 76735 [facility] SPINE 5 MEDICAL AFIA CERVICAL IMAGING 4 OR 5 ASS VIEWS THERAPEUT 86711 A C KILPELA IC 5 SARATH OROZCO PROPHYLAC PSC TIC/DX INJECTION SUBQ/IM INJECTION J1030 A C KILPELA 5 SARATH OROZCO METHYLPRE PSC DNISOLONE ACETATE 40 MG INJ J0702 A Mohini KYLE BETAMETHA 5 SARATH RODRIGUEZ VALERIEGilbert SONE PSC ACETATE & PHOSPHATE 3 MG INJECTION J1885 A Mohini BRAGGPELA 5 SARATH OROZCO KETOROLAC PSC TROMETHAM INE PER 15 MG THERAPEUT 63145 [place] IC PX 1/> 5 YANG YANG AREAS EACH 15 MIN EXERCISES CHIROPRAC 18115 [place] TIC 5 YANG YANG MANIPULAT DAM[place] SPINAL 1-2 REGIONS APPL 06448 [place] MODALITY 5 YANG YANG 1/> AREAS TRACTION MECHANICA L CHIROPRAC 95884 [place] TIC 5 YANG YANG MANIPULAT DAM[place] SPINAL 1-2 REGIONS APPL 61081 [place] MODALITY 5 YANG YANG 1/> AREAS TRACTION MECHANICA L THERAPEUT 04761 [place] IC PX 1/> 5 YANG YANG AREAS EACH 15 MIN EXERCISES THERAPEUT 13446 [place] IC PX 1/> 5 YANG YANG AREAS EACH 15 MIN EXERCISES CHIROPRAC 22166 [place] TIC 5 YANG YANG MANIPULAT DAMIAN TX SPINAL 1-2 REGIONS APPL 25621 [place] MODALITY 5 YANG YANG 1/> AREAS TRACTION MECHANICA L CHIROPRAC 32361 [place] TIC 5 YANG YANG MANIPULAT DAMIAN TX SPINAL 1-2 REGIONS ECG 44504 A C FIELD AMB ROUTINE 5 SARATH RODRIGUEZ ECG PSC W/LEAST 12 LDS W/I&R THERAPEUT 14868 A C FIELD AMB IC 5 SARATH RODRIGUEZ PROPHYLAC PSC TIC/DX INJECTION SUBQ/IM INJECTION J1885 A C AMB 5 SARATH RODRIGUEZ KETOROLAC PSC TROMETHAM INE PER [address] THORAX 45946 [facility] W/CONTRAS INC INC T MATERIAL CREATININ 37849 [facility] E BLOOD 4 [facility] INC INC LOCM Q9967 [facility] 300-399 4 [facility] MG/ML INC INC IOD[place] [address] [facility] UREA 4 [facility] [place] [address] [facility] ABDOMEN & 4 [facility] PELVIS INC INC W/O CONTRAST MATERIAL ECG 86543 A C KILPELA ROUTINE 4 SARATH RODRIGUEZ JEA ECG PSC W/LEAST 12 LDS W/I&[place] [address] [facility] TROPONIN 4 [facility] QUANTITAT INC INC DAMIAN URINLS 84561 A C KILPELA DIP 4 SARATH RODRIGUEZ JEA STICK/TAB PSC LET REAGNT NON-AUTO MICRSCPY RADIOLOGI 36228 [facility] C EXAM 4 MEDICAL KALPESH CHEST 2 IMAGING VIEWS ASS FRONTAL&L ATERAL SCREENING G0202 [facility] 4 [facility] MAMMOGRAP INC INC HY CHERYL INCL CAD WHEN PERFORMD COMPUTER- 18327 [facility] AIDED 4 [facility] DETECTION INC INC SCREENING MAMMOGRAP HY DUPLEX 66626 [facility] [place] SCAN 4 [facility] EXTRACRAN INC INC IAL ART COMPL BI STUDY Encounters Encounter Start End Date Code Location Performer Type Date OFFICE [address] [facility] FRYMAN OUTPATIEN 7 7 PHYSICIAN T VISIT S GROUP 25 MINUTES [facility]OM[facility]S - 7 7 [facility] OUTPATIEN INC T OFFICE [address] [facility] FRYMAN OUTPATIEN 7 7 PHYSICIAN T VISIT S GROUP 25 MINUTES [facility] TOM[facility]S - 7 7 [facility] OUTPATIEN INC T OFFICE [address] [facility] FRYMAN OUTPATIEN 7 7 PHYSICIAN T VISIT S GROUP 15 MINUTES EMERGENCY 43250 SUSAN TILLMAN DEPT 7 7 PHYSICIAN VISIT S, PLLC HIGH SEVERITY& THREAT [facility]OM[facility] - 7 7 [facility] OUTPATIEN INC T EMERGENCY 03870 [facility] 7 7 [facility] DEPARTMEN INC T VISIT HIGH/URGE NT SEVERITY EMERGENCY 45722 SUSAN TILLMAN 6 6 PHYSICIAN MARY LOU DEPARTMETHODIST [facility] T VISIT MODERATE SEVERITY OFFICE 12481 KAVON JACOBSON OUTPATIEN 6 6 T NEW 10 MINUTES EMERGENCY 28349 [facility] 6 6 [place] RAÚL [facility]PART[facility]IST [facility] DI T VISIT SERV HIGH/URGE NT SEVERITY HOSPITAL [facility] - 6 6 N OUTPATIEN COMMUNTIY T HOSPITA EMERGENCY 15467 [facility] 6 6 N DEPARTMEN [facility]TIY [facility] SE[facility] - 6 6 [facility] OUTPATIEN INC T OFFICE [address] [facility] OUTPATIEN 6 6 PHYSICIAN T NEW 45 S GROUP MINUTES OFFICE 82475 A C KILPELA OUTPATIEN 5 5 SARATH OROZCO T VISIT PSC 15 MINUTES OFFICE 98385 A C NATHALIE BRY OUTPATIEN 5 5 SARATH RODRIGUEZ T VISIT PSC 25 MINUTES OFFICE 40130 A C NATHALIE BRY OUTPATIEN 5 5 SARATH RODRIGUEZ T VISIT PSC 15 MINUTES OFFICE 13272 A C FIELD AMB OUTPATIEN 5 5 SARATH RODRIGUEZ T VISIT PSC 15 MINUTES HOSPITAL [facility] - 5 5 [facility] OUTPATIEN INC T OFFICE 09649 A C KILPELA OUTPATIEN 5 5 SARATH OROZCO T VISIT PSC 15 MINUTES OFFICE 07044 [facility] OUTPATIEN 5 5 YANG SORIA T NEW 30 MINUTES OFFICE 82949 A C FIELD AMB OUTPATIEN 5 5 SARATH RODRIGUEZ T VISIT PSC 15 MINUTES OFFICE 26704 A C FIELD AMB OUTPATIEN 5 5 SARATH RODRIGUEZ T VISIT [facility] 15 MINUTES HOSPITAL [facility] - 4 4 [facility] OUTPATIEN [facility] - 4 4 [facility] OUTPATIEN [facility] T OFFICE 81074 A C KILPELA OUTPATIEN 4 4 SARATH Cuellar VISIT [facility] 25 MINUTES [facility]OM[facility] - 4 4 [facility] OUTPATIEN [facility] T OFFICE 41509 A C KILPELA OUTPATIEN 4 4 SARATH Cuellar VISIT [facility] 25 MINUTES OFFICE 09894 KILPELA KILPELA OUTPATIEN 4 4 PAM Cuellar VISIT 15 MINUTES HOSPITAL [facility] - 4 4 [facility] OUTPATIEN [facility] T OFFICE 20179 KILPELA KILPELA OUTPATIEN 4 4 PAM Cuellar NEW 45 MINUTES
--- OUTSIDE RECORDS SUMMARY | 2017-07-17 15:05 | External Medical Summary Rpt ---
Demographics Preferred Language Korean Marital Status Unknown Confucianism Affiliation Unknown Race Unknown Ethnic Group Unknown Author Author VIN Address Unknown Phone Immunization No patient found.
--- OUTSIDE RECORDS SUMMARY | 2017-07-17 15:05 | External Medical Summary Rpt ---
Demographics Preferred Language Yi Marital Status Unknown Rastafari Affiliation Unknown Race Unknown Ethnic Group Unknown Author Author VIN Address Unknown Phone Immunization No patient found.
[2017-07-17 15:06] LABS: HEMOGLOBIN 13.5 g/dL (12.2-16.2); LYMPH # 1.8 K/mm3 (0.7-4.5); LYMPH % 29.7 % (10-50.0)
--- OUTSIDE RECORDS SUMMARY | 2017-07-17 15:06 | External Medical Summary Rpt ---
Author Author [employer], [employer] Organization [employer] Address Unknown Phone Unavailable Results Basic metabolic panel in Blood Observa Value Referen Units Interpr Notes Date tion ce etation Range Urea 7 - 18 mg/dL High No Jun 28 nitrogen informati 2016 4:00 [Mass/vol on in AM ume] in source Serum or data Plasma Calcium 8.5 - mg/dL High No Jun 28 [Mass/vol 10.1 informati 2016 4:00 ume] in on in AM Serum or source Plasma data Chloride 98 - 107 mmoL/L Normal No Jun 28 [Moles/vo informati 2016 4:00 lume] in on in AM Serum or source Plasma data Carbon 21.0 - mmoL/L Normal No Jun 28 dioxide, 32.0 informati 2016 4:00 total on in AM [Moles/vo source lume] in data Serum or Plasma Creatinin 0.55 - mg/dL Normal No Jun 28 e 1.02 informati 2016 4:00 [Mass/vol on in AM ume] in source Serum or data Plasma Creatinin 50 - 200 ML/MIN Normal No Jun 28 e renal informati 2016 4:00 clearance on in AM source predicted data by Cockcroft -Gault formula Estimated 59- ML/MIN No REFERENCE Jun 28 informati RANGE: 2017 4:00 glomerula on in >60 AM r source ML/MIN/1. filtratio data 73 SQUARE n rate METERSIf (GF this patient is -A merican, then multiply theresult by 1.210. Glucose 74 - 106 mg/dL Normal No Jun 28 [Mass/vol informati 2016 4:00 ume] in on in AM Serum or source Plasma data Potassium 3.5 - 5.1 mmoL/L Normal No Jun 28 informati 2016 4:00 [Moles/vo on in AM lume] in source Serum or data Plasma Sodium 136 - 145 mmoL/L Normal No Jun 28 [Moles/vo informati 2016 4:00 lume] in on in AM Serum or source Plasma data CBC W Auto Differential panel in Blood Observa Value Referen Units Interpr Notes Date tion ce etation Range Basophils 0 - 0.2 K/MM3 Normal No Jun 28 informati 2016 4:00 [#/volume on in AM ] in source Blood by data Automated count Basophils 0.1 - 2.0 % Normal No Jun 28 /100 informati 2016 4:00 leukocyte on in AM s in source Blood by data Automated count Eosinophi 0.0 - 0.4 K/mm3 Normal No Jun 28 ls informati 2016 4:00 [#/volume on in AM ] in source Blood by data Automated count Eosinophi 0.1 - % Normal No Jun 28 ls/100 12.0 informati 2016 4:00 leukocyte on in AM s in source Blood by data Automated count Granulocy 1.8 - 7.8 K/mm3 Normal No Jun 28 suri informati 2016 4:00 [#/volume on in AM ] in source Blood by data Automated count Granulocy 37.0 - % Normal No Jun 28 suri/100 80.0 informati 2016 4:00 leukocyte on in AM s in source Blood by data Automated count Hematocri 37.0 - % Normal No Jun 28 t [Volume 47.0 informati 2016 4:00 on in AM Fraction] source of Blood data Hemoglobi 12.2 - g/dL Normal No Jun 28 n 16.2 informati 2016 4:00 [Mass/vol on in AM ume] in source Blood data Lymphocyt 0.7 - 4.5 K/mm3 Normal No Jun 28 es informati 2016 4:00 [#/volume on in AM ] in source Unspecifi data ed specimen by Automated count Lymphocyt 10 - 50.0 % Normal No Jun 28 es informati 2016 4:00 [#/volume on in AM ] in source Unspecifi data ed specimen by Automated count Erythrocy 27 - 31.2 pg High No Jun 28 te mean informati 2016 4:00 corpuscul on in AM ar source hemoglobi data n [Entitic mass] Erythrocy 31.8 - g/dl Normal No Jun 28 te mean 35.4 informati 2016 4:00 corpuscul on in AM ar source hemoglobi data n concentra tion [Mass/vol ume] by Automated count Erythrocy 82.2 - fl Normal No Jun 28 te mean 97.8 informati 2016 4:00 corpuscul on in AM ar volume source [Entitic data volume] by Automated count Monocytes 0.1 - 1.0 K/mm3 Normal No Jun 28 informati 2016 4:00 [#/volume on in AM ] in source Blood by data Automated count Monocytes 1.7 - 9.3 % Normal No Jun 28 /100 informati 2016 4:00 leukocyte on in AM s in source Blood by data Automated count Platelet 7.4 - fl Normal No Jun 28 mean 10.4 informati 2016 4:00 volume on in AM [Entitic source volume] data in Blood by Automated count Platelets 142 - 424 K/mm3 Normal No Jun 28 informati 2016 4:00 [#/volume on in AM ] in source Blood data Erythrocy 4.2 - 5.4 M/mm3 Normal No Jun 28 suri informati 2016 4:00 [#/volume on in AM ] in source Amniotic data fluid Erythrocy 11.5 - % Normal No Jun 28 te 17.5 informati 2016 4:00 distribut on in AM ion width source [Entitic data volume] by Automated count Leukocyte 4.8 - K/MM3 Normal No Jun 28 s 10.8 informati 2016 4:00 [#/volume on in AM ] in source Blood data Lipid 1996 panel in Serum or Plasma Observa Value Referen Units Interpr Notes Date tion ce etation Range Cholester < 200 mg/dL No No Jun 27 ol informati informati 2016 7:55 [Moles/vo on in on in PM lume] in source source Unspecifi data data ed specimen Cholester 40 - 60 MG/DL Normal No Jun 27 ol in HDL informati 2016 7:55 on in PM [Mass/vol source ume] in data Serum or Plasma Cholester 0 - 130 mg/dL Normal No Jun 27 ol in LDL informati 2016 7:55 on in PM [Mass/vol source ume] in data Serum or Plasma by calculati on Triglycer 30 - 200 mg/dL Normal No Jun 27 az informati 2016 7:55 [Moles/vo on in PM lume] in source Serum or data Plasma Cholester 0 - 40 No Normal No Jun 27 ol in informati informati 2016 7:55 VLDL on in on in PM [Mass/vol source source ume] in data data Serum or Plasma Hemoglobin A1c in Blood Observa Value Referen Units Interpr Notes Date tion ce etation Range Hemoglo 5.4 0.0 - % Normal < 6% Jun 27 bin A1c 7.0 NON-HUMBERTO 2017 in BETIC 7:55 PM Blood LEVEL< 7% CONTROL LED DIABETI C LEVEL> 8% POORLY CONTROL LED DIABETI C LEVEL CBC W Auto Differential panel in Blood Observa Value Referen Units Interpr Notes Date tion ce etation Range Basophils 0 - 0.2 K/MM3 Normal No Jun 27 informati 2016 7:30 [#/volume on in PM ] in source Blood by data Automated count Basophils 0.1 - 2.0 % Normal No Jun 27 informati 2016 7:30 leukocyte on in PM s in source Blood by data Automated count Eosinophi 0.0 - 0.4 K/mm3 Normal No Jun 27 ls informati 2016 7:30 [#/volume on in PM ] in source Blood by data Automated count Eosinophi 0.1 - % Normal No Jun 27 ls/100 12.0 informati 2016 7:30 leukocyte on in PM s in source Blood by data Automated count Granulocy 1.8 - 7.8 K/mm3 Normal No Jun 27 suri informati 2016 7:30 [#/volume on in PM ] in source Blood by data Automated count Granulocy 37.0 - % Normal No Jun 27 suri/100 80.0 informati 2016 7:30 leukocyte on in PM s in source Blood by data Automated count Hematocri 37.0 - % Normal No Jun 27 t [Volume 47.0 informati 2016 7:30 on in PM Fraction] source of Blood data Hemoglobi 12.2 - g/dL Normal No Jun 27 n 16.2 informati 2016 7:30 [Mass/vol on in PM ume] in source Blood data Lymphocyt 0.7 - 4.5 K/mm3 Normal No Jun 27 es informati 2016 7:30 [#/volume on in PM ] in source Unspecifi data ed specimen by Automated count Lymphocyt 10 - 50.0 % Normal No Jun 27 es informati 2016 7:30 [#/volume on in PM ] in source Unspecifi data ed specimen by Automated count Erythrocy 27 - 31.2 pg High No Jun 27 te mean informati 2016 7:30 corpuscul on in PM ar source hemoglobi data n [Entitic mass] Erythrocy 31.8 - g/dl Normal No Jun 27 te mean 35.4 informati 2016 7:30 corpuscul on in PM ar source hemoglobi data n concentra tion [Mass/vol ume] by Automated count Erythrocy 82.2 - fl Normal No Jun 27 te mean 97.8 informati 2016 7:30 corpuscul on in PM ar volume source [Entitic data volume] by Automated count Monocytes 0.1 - 1.0 K/mm3 Normal No Jun 27 inform2016 7:30 [#/volume on in PM ] in source Blood by data Automated count Monocytes 1.7 - 9.3 % Normal No Jun 27 /100 informati 2016 7:30 leukocyte on in PM s in source Blood by data Automated count Platelet 7.4 - fl Low No Jun 27 mean 10.4 informati 2016 7:30 volume on in PM [Entitic source volume] data in Blood by Automated count Platelets 142 - 424 K/mm3 Normal No Jun 27 inform2016 7:30 [#/volume on in PM ] in source Blood data Erythrocy 4.2 - 5.4 M/mm3 Normal No Jun 27 suri informati 2016 7:30 [#/volume on in PM ] in source Amniotic data fluid Erythrocy 11.5 - % Normal No Jun 27 te 17.5 informati 2016 7:30 distribut on in PM ion width source [Entitic data volume] by Automated count Leukocyte 4.8 - K/MM3 Normal No Jun 27 s 10.8 informati 2016 7:30 [#/volume on in PM ] in source Blood data Comprehensive metabolic 2000 panel in Serum or Plasma Observa Value Referen Units Interpr Notes Date tion ce etation Range Albumin/G 1.1 - 1.8 No Normal No May 27 lobulin informati informati 2016 [Mass on in on in 11:45 AM ratio] in source source Serum or data data Plasma Albumin 3.4 - 5.0 gm/dL Normal No May 27 [Mass/vol informati 2016 ume] in on in 11:45 AM Serum or source Plasma data Alkaline 46 - 116 U/L High No May 27 phosphata informati 2016 se on in 11:45 AM [Enzymati source c data activity/ volume] in Serum or Plasma Bilirubin 0.2 - 1.0 mg/dL Normal No May 27 .total informati 2016 [Mass/vol on in 11:45 AM ume] in source Serum or data Plasma Urea 7 - 18 mg/dL Normal No May 27 nitrogen informati 2016 [Mass/vol on in 11:45 AM ume] in source Serum or data Plasma Calcium 8.5 - mg/dL Normal No May 27 [Mass/vol 10.1 informati 2016 ume] in on in 11:45 AM Serum or source Plasma data Chloride 98 - 107 mmoL/L Normal No May 27 [Moles/vo informati 2016 lume] in on in 11:45 AM Serum or source Plasma data Carbon 21.0 - mmoL/L Normal No May 27 dioxide, 32.0 informati 2016 total on in 11:45 AM [Moles/vo source lume] in data Serum or Plasma Creatinin 0.55 - mg/dL Normal No May 27 e 1.02 informati 2016 [Mass/vol on in 11:45 AM ume] in source Serum or data Plasma Estimated 59- ML/MIN No REFERENCE May 27 informati RANGE: 2017 glomerula on in >60 11:45 AM r source ML/MIN/1. filtratio data 73 SQUARE n rate METERSIf (GF this patient is -A merican, then multiply theresult by 1.210. Globulin 1.3 - 3.2 gm/dL High No May 27 [Mass/vol informati 2016 ume] in on in 11:45 AM Serum source data Glucose 74 - 106 mg/dL Normal No May 27 [Mass/vol informati 2016 ume] in on in 11:45 AM Serum or source Plasma data Potassium 3.5 - 5.1 mmoL/L Normal No May 27 inform2016 [Moles/vo on in 11:45 AM lume] in source Serum or data Plasma Sodium 136 - 145 mmoL/L Normal No May 27 [Moles/vo informati 2017 lume] in on in 11:45 AM Serum or source Plasma data Aspartate 15 - 37 U/L Normal No May 27 informati 2016 aminotran on in 11:45 AM sferase source [Enzymati data c activity/ volume] in Serum or Plasma Alanine 12 - 78 U/L Normal No May 27 aminotran informati 2016 sferase on in 11:45 AM [Enzymati source c data activity/ volume] in Serum or Plasma Protein 6.4 - 8.2 gm/dL Normal No May 27 [Mass/vol informati 2016 ume] in on in 11:45 AM Serum or source Plasma data Thyroxine (T4) free [Mass/volume] in Serum or Plasma Observa Value Referen Units Interpr Notes ti etation Range Thyroxine 0.76 - ng/dL Normal No May 27 (T4) 1.46 2016 free on in 11:45 AM [Mass/vol source ume] in data Serum or Plasma Thyrotropin [Units/volume] in Serum or Plasma Observa Value Referen Units Interpr Notes ti ce etation Range Thyrotrop 0.358 - uIU/ml No No May 27 in 3.740 informati inform2016 [Units/vo on in on in 11:45 AM lume] in source source Serum or data data Plasma Hemoglobin A1c in Blood Observa Value Referen Units Interpr Notes etation Range Hemoglo 5.3 0.0 - % Normal < 6% May 27 bin A1c 7.0 NON-HUMBERTO 2017 in BETIC 11:45 Blood LEVEL< AM 7% CONTROL LED DIABETI C LEVEL> 8% POORLY CONTROL LED DIABETI C LEVEL CBC W Auto Differential panel in Blood Observa Value Referen Units Interpr Notes etation Range Basophils 0 - 0.2 K/MM3 Normal No May 272016 [#/volume on in 11:45 AM ] in source Blood by data Automated count Basophils 0.1 - 2.0 % Normal No May 27 /2016 leukocyte on in 11:45 AM s in source Blood by data Automated count Eosinophi 0.0 - 0.4 K/mm3 High No May 27 ls 2016 [#/volume on in 11:45 AM ] in source Blood by data Automated count Eosinophi 0.1 - % Normal No May 27 ls/100 12.0 2016 leukocyte on in 11:45 AM s in source Blood by data Automated count Granulocy 1.8 - 7.8 K/mm3 Normal No May 27 suri inform2016 [#/volume on in 11:45 AM ] in source Blood by data Automated count Granulocy 37.0 - % Normal No May 27 suri/100 80.0 2016 leukocyte on in 11:45 AM s in source Blood by data Automated count Hematocri 37.0 - % Normal No May 27 t [Volume 47.0 2016 on in 11:45 AM Fraction] source of Blood data Hemoglobi 12.2 - g/dL Normal No May 27 n 16.2 informati 2016 [Mass/vol on in 11:45 AM ume] in source Blood data Lymphocyt 0.7 - 4.5 K/mm3 Normal No May 27 es informati 2016 [#/volume on in 11:45 AM ] in source Unspecifi data ed specimen by Automated count Lymphocyt 10 - 50.0 % Normal No May 27 es informati 2016 [#/volume on in 11:45 AM ] in source Unspecifi data ed specimen by Automated count Erythrocy 27 - 31.2 pg High No May 27 te mean inform2016 corpuscul on in 11:45 AM ar source hemoglobi data n [Entitic mass] Erythrocy 31.8 - g/dl Normal No May 27 te mean 35.4 informati 2016 corpuscul on in 11:45 AM ar source hemoglobi data n concentra tion [Mass/vol ume] by Automated count Erythrocy 82.2 - fl Normal No May 27 te mean 97.8 informati 2016 corpuscul on in 11:45 AM ar volume source [Entitic data volume] by Automated count Monocytes 0.1 - 1.0 K/mm3 Normal No May 27 informati 2016 [#/volume on in 11:45 AM ] in source Blood by data Automated count Monocytes 1.7 - 9.3 % Normal No May 27 /100 informati 2016 leukocyte on in 11:45 AM s in source Blood by data Automated count Platelet 7.4 - fl Normal No May 27 mean 10.4 informati 2016 volume on in 11:45 AM [Entitic source volume] data in Blood by Automated count Platelets 142 - 424 K/mm3 Normal No May 27 informati 2016 [#/volume on in 11:45 AM ] in source Blood data Erythrocy 4.2 - 5.4 M/mm3 Normal No May 27 suri informati 2016 [#/volume on in 11:45 AM ] in source Amniotic data fluid Erythrocy 11.5 - % Normal No May 27 te 17.5 informati 2016 distribut on in 11:45 AM ion width source [Entitic data volume] by Automated count Leukocyte 4.8 - K/MM3 Normal No May 27 s 10.8 informati 2016 [#/volume on in 11:45 AM ] in source Blood data
[2017-07-17 15:39] LABS: BUN 11 mg/dL (7-18)
[2017-07-17 15:40] LABS: GFR (ESTIMATED) 86 ML/MIN (59-)
--- NOTE | 2017-07-17 16:24 | Emergency Room Report ---
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 N Clinical Suspician of Infection? N Mental Status: 1 - Regular (Normal Baseline) Sepsis Risk:Low Sepsis Risk Have you (or family members/close friends) recently traveled outside the [place]? N If Yes, where/when: Have you had exposure to infectious disease within the past month? TB? Other? Specify: Source patient, RN notes reviewed, family, RN/MD Exam Limitations no limitations Comment This is a 57-year-old feel patient presented emergency room with chest pain, midsternal, radiating to the neck, and jaws, since last night, so she'll shots of breath and diaphoresis. Patient has a history of chronic cervical pain for which she has been seeing a chiropractor, over the years. She does have referred pain from her chronic neck condition to her chest, however the pain his penis last night was a lot different from anything she has ever lived before. Patient denies any history of coronary artery disease, any previous cardiac workup such as stress a echocardiogram. Cardiac Chest Pain Chest pain indicative of cardiac Yes Timing/Duration 24 hours, getting worse Severity/Quality moderate Location central Chest Pain Radiation jaw(s) Activities at Onset light activity Modifying Factors worse with exercise, worse with lying down, improves with oxygen, improves with palpation Timing/Duration constant Severity moderate ALLERGIES Coded Allergies: codeine (Mild, 07/17/17) Home Medications Reported Medications Lisinopril & Hctz (Lisinopril-Hctz 10-12.5 MG Tab) 1 TAB PO DAILY #30 Albuterol Sulfate (Ventolin Hfa) 0.09 MG IH QID PRN BREATHING #18 BUDESONIDE/FORMOTEROL FUMARATE (Symbicort 160-4.5 Mcg Inhaler) 1 PUFF IH BID #10 History Medical History General CAD? Yes Angina: No MD: No Hypertension? Yes Hyperlipidemia? No CHF? No DVT? No PE? No COPD? No Asthma? No Anemia? No GERD? No Gastric ulcers? No GI Bleed? No Hernia? No Thyroid Problems? No Hypothyroidism? No CVA? No Seizures? No Diabetes? No Renal Insuffiency? No End Stage Renal Disease? No UTI? No Stones? No BPH? No GB Disease: No Nephritic Syndrome? No Asplenia? No Hepatitis? No Sickle Cell Disease? No Arthritis? Yes Migraines? Yes Cataracts? No Glaucoma? No MRSA? No HIV? No TB? No Anxiety? Yes Depression? Yes Cancer? No More? 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 LMP N/A Family History Family Hx Diabetes No CAD No Hypertension Yes Hyperlipidemia No Cancer No TB No Social History Smoking Hx Smoker: Current Every Day Smoker Tobacco: Yes Type Cigarettes Packs/day 1 1/2 - 2 Packs Alcohol Alcohol: No Review of Systems All Other Systems Reviewed and Negative Cardiovascular chest pain Physical Exam Vital Signs Vital Signs Date Time Temp Pulse Resp B/P Pulse O2 O2 Flow FiO2 Ox Delivery Rate 07/17 1541 98.0 66 18 145/90 99 07/17 1449 98.0 66 18 157/111 99 General Appearance normal appearance, WD/WN, no apparent distress Neck normal inspection, non-tender, supple, full range of motion Respiratory Status Yes: trachea midline, chest symmetrical, non tender chest. No: respiratory distress. Lung Sounds bilateral: normal breath sounds, lungs clear. Cardiovascular normal exam, regular rate/rhythm, no peripheral edema, no gallop, no JVD, no murmur, no rub, normal peripheral pulses Gastrointestinal normal bowel sounds, normal exam, non tender, soft, no organomegaly Extremities non-tender, normal range of motion, normal inspection Neurologic alert, operations asst II-XII nml as tested, normal exam, oriented x 3 Mental status normal mood/affect Skin intact, normal color, warm/dry Medical Decision Making LABS/Meds/Orders Pt receiving controlled substance in ED? No Comment 16:25 - case discussed with Frandy Michel, taking calls for Dr. Mercado, advised the patient presentation, findings and clinical current condition. She is agreeable with admission, will transfer care to Dr. Mercado at this time. I'll write temporary, bridge, admission orders at this time, also protocol. Upon patient's arrival to the floor the unit nurse will contact Dr. Mercado noted to obtain fully patient initially noticed. Results/Orders Laboratory Tests 07/17/17 1455: Sodium 139, Potassium 4.0, Chloride 106, Carbon Dioxide 26, BUN 11, Creatinine 0.7, Estimated Creat Clear 112, Estimated GFR (MDRD) 86, Glucose 104, Calcium 9.3, Total Bilirubin 0.4, AST 15, ALT 24, Alkaline Phosphatase 89, Creatine Kinase 49, CK-MB (CK-2) Rel Index 1.0, CK and CKMB Interp < 0.5, Troponin I < 0.02, B-Natriuretic Peptide 83, Total Protein 7.2, Albumin 4.0, Globulin 3.2, Albumin/Globulin Ratio 1.3, WBC 6.2, RBC 4.26, Hgb 13.5, Hct 38.8, MCV 91.1, RDW 12.7, Plt Count 206, MPV 7.4, Gran % 55.9, Gran # 3.4, Lymphocytes % 29.7, Monocytes % 5.2, Eosinophils % 8.5, Basophils % 0.7, Lymphocytes # 1.8, Monocytes # 0.3, Eosinophils # 0.5 H, Basophils # 0.0, PUBS MCHC 34.8, MCH 31.7 H Current Medication Orders Sig/Susana Start time Last Medication Dose Route Stop Time Status Admin Aspirin 0 .STK-MED ONE 07/17 1530 DC .ROUTE Aspirin 324 MG ONCE ONE 07/17 1500 DC 07/17 PO 07/17 1501 1532 Sodium Chloride 10 ML PRN PRN 07/17 1500 AC IV 07/18 1455 Orders Procedure Date/time Status Decision to admit 07/17 1631 Active ELECTROCARDIOGRAM REQUEST 07/17 1456 Active CHEST-PORTABLE 07/17 145 Active IV SALINE LOCK 07/17 145 Active CBC WITH AUTO DIFF 07/17 1456 Complete CARDIAC ENZYMES 07/17 1456 Complete CHEM 12 PROFILE 07/17 1456 Complete BRAIN NATRIURETIC PEPTIDE 07/17 1456 Complete 12 LEAD EKG-[facility] (INIT[facility]) 07/17 UNK Active 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 of ischemic chgs, no ectopy, normal QRS, normal FL, no EKG for comparison, non-spec. ST/Twave chgs, ST elevation, ST depression, LBBB, RBBB, ectopy, abnormal Q waves XRAY/CT/US XRAY/CT/US XRAY chest XR interpretation by reviewed by me, discussed w/radiologist Xray Results no infiltrates, normal heart size, normal lung inflation junior Departure Departure Time of Disposition 1626 Disposition Still a Patient Clinical Impression Primary Impression: Chest pain Qualifiers: Chest pain type: unspecified Qualified Code: R07.9 - Chest pain, unspecified Condition STABLE Referrals Frandy Michel (Family) ED Critical Care Critical Care No at 1636
--- NOTE | 2017-07-17 16:24 | Emergency Room Report ---
History of Present Illness Time Seen by [id number] Presenting Problem in Triage Pt arrived:Walked Presenting Problem:CHEST PAIN SINCE LAST NIGHT INTERMITTENTLY Onset of symptoms date/time:/ or onset unknown for:MEDICAL HX UNKNOWN Treatment Prior to Arrival: EVAL'D PER PCP AGENT PRODUCER Provided by:PHYSICIAN Sepsis Risk Assessment: Temp: 98.0 B/P: 145/90 MAP: 126 Pulse: 66 Resp: 18 Recent fever? N Clinical Suspician of Infection? N Mental Status: 1 - Regular (Normal Baseline) Sepsis Risk:Low Sepsis Risk Have you (or family members/close friends) recently traveled outside the [place]? N If Yes, where/when: Have you had exposure to infectious disease within the past month? TB? Other? Specify: Source patient, RN notes reviewed, family, RN/MD Exam Limitations no limitations Comment This is a 57-year-old feel patient presented emergency room with chest pain, midsternal, radiating to the neck, and jaws, since last night, so she'll shots of breath and diaphoresis. Patient has a history of chronic cervical pain for which she has been seeing a chiropractor, over the years. She does have referred pain from her chronic neck condition to her chest, however the pain his penis last night was a lot different from anything she has ever lived before. Patient denies any history of coronary artery disease, any previous cardiac workup such as stress a echocardiogram. Cardiac Chest Pain Chest pain indicative of cardiac Yes Timing/Duration 24 hours, getting worse Severity/Quality moderate Location central Chest Pain Radiation jaw(s) Activities at Onset light activity Modifying Factors worse with exercise, worse with lying down, improves with oxygen, improves with palpation Timing/Duration constant Severity moderate ALLERGIES Coded Allergies: codeine (Mild, 07/17/17) Home Medications Reported Medications Lisinopril & Hctz (Lisinopril-Hctz 10-12.5 MG Tab) 1 TAB PO DAILY #30 Albuterol Sulfate (Ventolin Hfa) 0.09 MG IH QID PRN BREATHING #18 BUDESONIDE/FORMOTEROL FUMARATE (Symbicort 160-4.5 Mcg Inhaler) 1 PUFF IH BID #10 History Medical History General CAD? Yes Angina: No NH: No Hypertension? Yes Hyperlipidemia? No CHF? No DVT? No PE? No COPD? No Asthma? No Anemia? No GERD? No Gastric ulcers? No GI Bleed? No Hernia? No Thyroid Problems? No Hypothyroidism? No CVA? No Seizures? No Diabetes? No Renal Insuffiency? No End Stage Renal Disease? No UTI? No Stones? No BPH? No GB Disease: No Nephritic Syndrome? No Asplenia? No Hepatitis? No Sickle Cell Disease? No Arthritis? Yes Migraines? Yes Cataracts? No Glaucoma? No MRSA? No HIV? No TB? No Anxiety? Yes Depression? Yes Cancer? No More? 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 Hx LMP N/A Family History Family Hx Diabetes No CAD No Hypertension Yes Hyperlipidemia No Cancer No TB No Social History Smoking Hx Smoker: Current Every Day Smoker Tobacco: Yes Type Cigarettes Packs/day 1 1/2 - 2 Packs Alcohol Alcohol: No Review of Systems All Other Systems Reviewed and Negative Cardiovascular chest pain Physical Exam Vital Signs Vital Signs Date Time Temp Pulse Resp B/P Pulse O2 O2 Flow FiO2 Ox Delivery Rate 07/17 1541 98.0 66 18 145/90 99 07/17 1449 98.0 66 18 157/111 99 General Appearance normal appearance, WD/WN, no apparent distress Neck normal inspection, non-tender, supple, full range of motion Respiratory Status Yes: trachea midline, chest symmetrical, non tender chest. No: respiratory distress. Lung Sounds bilateral: normal breath sounds, lungs clear. 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 No Comment 16:25 - case discussed with Frandy Michel, taking calls for Dr. Mercado, advised the patient presentation, findings and clinical current condition. She is agreeable with admission, will transfer care to Dr. Mercado at this time. I'll write temporary, bridge, admission orders at this time, also protocol. Upon patient's arrival to the floor the unit nurse will contact Dr. Mercado noted to obtain fully patient initially noticed. Results/Orders Laboratory Tests 07/17/17 1455: Sodium 139, Potassium 4.0, Chloride 106, Carbon Dioxide 26, BUN 11, Creatinine 0.7, Estimated Creat Clear 112, Estimated GFR (MDRD) 86, Glucose 104, Calcium 9.3, Total Bilirubin 0.4, AST 15, ALT 24, Alkaline Phosphatase 89, Creatine Kinase 49, CK-MB (CK-2) Rel Index 1.0, CK and CKMB Interp < 0.5, Troponin I < 0.02, B-Natriuretic Peptide 83, Total Protein 7.2, Albumin 4.0, Globulin 3.2, Albumin/Globulin Ratio 1.3, WBC 6.2, RBC 4.26, Hgb 13.5, Hct 38.8, MCV 91.1, RDW 12.7, Plt Count 206, MPV 7.4, Gran % 55.9, Gran # 3.4, Lymphocytes % 29.7, Monocytes % 5.2, Eosinophils % 8.5, Basophils % 0.7, Lymphocytes # 1.8, Monocytes # 0.3, Eosinophils # 0.5 H, Basophils # 0.0, PUBS MCHC 34.8, MCH 31.7 H Current Medication Orders Sig/Susana Start time Last Medication Dose Route Stop Time Status Admin Aspirin 0 .STK-MED ONE 07/17 1530 DC .ROUTE Aspirin 324 MG ONCE ONE 07/17 1500 DC 07/17 PO 07/17 1501 1532 Sodium Chloride 10 ML PRN PRN 07/17 1500 AC IV 07/18 1455 Orders Procedure Date/time Status Decision to admit 07/17 1631 Active ELECTROCARDIOGRAM REQUEST 07/17 1456 Active CHEST-PORTABLE 07/17 145 Active IV SALINE LOCK 07/17 145 Active CBC WITH AUTO DIFF 07/17 1456 Complete CARDIAC ENZYMES 07/17 1456 Complete CHEM 12 PROFILE 07/17 1456 Complete BRAIN NATRIURETIC PEPTIDE 07/17 1456 Complete 12 LEAD EKG-[employer] [facility] [employer] (INITIAL) 07/17 UNK Active CM/EKG CM/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 of ischemic chgs, no ectopy, normal QRS, normal [place], no EKG for comparison, non-spec. ST/Twave chgs, ST elevation, ST depression, LBBB, RBBB, ectopy, abnormal Q waves XRAY/CT/US XRAY/CT/US XRAY chest XR interpretation by reviewed by me, discussed w/radiologist Xray Results no infiltrates, normal heart size, normal lung inflation junior Departure Departure Time of Disposition 1626 Disposition Still a Patient Clinical Impression Primary Impression: Chest pain Qualifiers: Chest pain type: unspecified Qualified Code: R07.9 - Chest pain, unspecified Condition STABLE Referrals Frandy Michel (Family) ED Critical Care Critical Care No at 1639
--- OUTSIDE RECORDS SUMMARY | 2017-07-17 16:36 | External Medical Summary Rpt ---
Author Author , VIN BANUELOS Address Unknown Phone [email or web address] Care Team Providers Care Benefits Sales Consultant Name Role Phone A Mohini CLEMENS MD [facility], Gilbert Unavailable Unavailable Mohini CLEMENS MD PSC BEINEMIKE KALPESH, BEINEKE Unavailable Unavailable KALPESH BESSON, BESSON Unavailable Unavailable MICHELLE OMAR, MICHELLE Unavailable Unavailable OMAR [facility], Unavailable Unavailable [facility] GOLDIE AFIA, Unavailable Unavailable GOLDIE AFIA GOLDIE AFIA, Unavailable Unavailable GOLDIE AFIA [facility] Unavailable Unavailable [place], [facility] JENIFER FIELD AMB, FIELD AMB Unavailable Unavailable FRYMAN, FRYMAN Unavailable Unavailable LAYNE, LAYNE Unavailable Unavailable LAYNE MARY LOU, LAYNE Unavailable Unavailable MARY LOU [facility] Un[facility] PAULINO RHO, PAULINO Unavailable Unavailable RHO [facility] Unavailable Unavailable INC, [facility] Unavailable Unavailable HOSPITAL P, [facility] JACOBSON, JACOBSON Unavailable Unavailable JACOBSON, JACOBSON Unavailable Unavailable [facility], Unavailable Unavailable [facility] KEDING, KEDING Unavailable Unavailable KEDING, KEDING Unavailable Unavailable KEDING YANG, KEDING Unavailable Unavailable YANG KEDING YANG, KEDING Unavailable Unavailable YANG [facility] Unavailable Unavailable [facility], [facility] KILPELA JEA, KILPELA Unavailable Unavailable [...] 2016 Problems Code Diagnosis DOS Provider Status [id number] MIGRAINE 06-06-2017 [facility] W/AURA NOT INTRACT W/STATUS MIGRAINOSUS [id number] RADICULOPAT 06-06-2017 [facility] HY CERVICAL REGION M542 CERVICALGIA 06-06-2017 [place] I10 ESSENTIAL 05-27-2017 [facility] PRIMARY PHYSICIANS HYPERTENSIO GROUP N N390 URINARY 05-27-2017 [facility] TRACT PHYSICIANS INFECTION GROUP SITE NOT SPECIFIED N939 ABNORMAL 05-27-2017 [facility] UTERINE & PHYSICIANS VAGINAL GROUP BLEEDING UNSPECIFIED R5383 OTHER 05-27-2017 [facility] FATIGUE PHYSICIANS GROUP R739 HYPERGLYCEM 05-27-2017 [facility] IA PHYSICIANS UNSPECIFIED GROUP Z1231 ENCOUNTER 03-13-2017 [facility] MAMMO MAL INC NEOPLASM BREAST M4802 SPINAL 02-28-2017 [facility] STENOSIS PHYSICIANS CERVICAL GROUP REGION I2510 ASHD [place] TRIBE IN [place] 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 [facility] 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 P ANGINA PECTORIS T23772 PAIN IN 02-06-2017 [facility] RIGHT ARM PHYSICIANS, PLLC N87951 PAIN IN 02-06-2017 [facility] LEFT ARM PHYSICIANS GROUP X15614 PAIN IN ARM 02-06-2017 [facility] R0789 OTHER CHEST 02-06-2017 [facility] PAIN PHYSICIANS GROUP R079 CHEST PAIN 02-06-2017 [place] UNSPECIFIED MEDICAL IMAGING ASS Z720 TOBACCO USE 02-06-2017 [facility] P H1033 UNSPECIFIED 10-25-2016 [facility] ACUTE PHYSICIANS, CONJUNCTIVI PLLC TIS BILATERAL H109 UNSPECIFIED 10-25-2016 [facility] PHYSICIANS, CONJUNCTIVI PLLC TIS H1013 ACUTE 10-23-2016 [facility] CONJUNCTIVI TIS BILATERAL C08401 PAIN IN 09-17-2016 [facility] [place] [facility] SHOULDER S49202 OTHER 09-17-2016 [facility] SPECIFIED COMMUNTIY JOINT [facility]OSPITA DISORDERS RIGHT SHOULDER M4302 SPONDYLOLYS 09-17-2016 [facility] CERVICAL N EMERGENCY REGION SERV M5030 OTH 09-17-2016 [place] CERVICAL COMMUNTIY DISC HOSPITA DEGENERATIO N UNS CERV REGION X64463 UNS ROT 09-17-2016 [place] CUFF COMMUNTIY TEAR/RUPT HOSPITA RT SHLDR NOT SPEC TRAUMAT M7521 BICIPITAL 09-17-2016 [facility] TENDINITIS N EMERGENCY RIGHT SERV SHOULDER M7551 BURSITIS OF 09-17-2016 [facility] RIGHT N EMERGENCY SHOULDER SERV M7591 SHOULDER 09-17-2016 [facility] LESION N EMERGENCY UNSPECIFIED SERV RIGHT SHOULDER X26197 MIGRAINE 06-13-2016 [facility] UNS NOT PHYSICIANS INTRACT W/O GROUP STATUS MIGRAINOSUS J449 CHRONIC 06-13-2016 [facility] OBSTRUCTIVE PHYSICIANS PULMONARY GROUP DISEASE UNS K047 PERIAPICAL 06-13-2016 [facility] ABSCESS PHYSICIANS WITHOUT GROUP SINUS J45988 CELLULITIS 06-13-2016 [facility] OF HEAD ANY PHYSICIANS PART GROUP EXCEPT FACE R161 SPLENOMEGAL 06-13-2016 [facility] Y NOT PHYSICIANS ELSEWHERE GROUP CLASSIFIED Z0000 ENCOUNTER 06-13-2016 [facility] GEN ADULT PHYSICIANS MED EXAM [...] DIGESTIVE SYSTEM 7231 CERVICALGIA 08-02-2015 [place] YANG 34058 SPASM OF 08-02-2015 [facility] SORIA MUSCLE 18009 MIGRAINE 05-17-2015 A Mohini CLEMENS UNSP W/O PSC INTRACT W/O STATUS MIGRAINOSUS 87189 HEMIPLEGIC 04-19-2015 A Mohini CLEMENS MIGRAINE PSC W/INTRACTAB LE W/O SM 7881 DYSURIA 04-19-2015 A Mohini CLEMENS MD PSC 45375 CHRONIC 02-18-2015 A Mohini DEL CID MD PSC W/O AURA W/O INTRACTABLE W/O SM 496 CHRONIC 02-18-2015 A Mohini CLEMENS AIRWAY PSC OBSTRUCTION NEC 40430 OTHER CHEST 02-17-2015 A Mohini CLEMENS PAIN PSC 56720 SHORTNESS 09-10-2014 [place] OF [facility] 74684 SOLITARY 09-10-2014 [facility] PULMONARY [facility] NODULE INC 08658 DIVERTICULO 08-20-2014 [place] SIS OF MEDICAL COLON IMAGING ASS 5718 OTHER 08-20-2014 [place] CHRONIC MED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 63429 ABDOMINAL 08-20-2014 [facility] PAIN, [facility] UNSPECIFIED INC SITE 87092 ABDOMINAL 08-20-2014 [place] PAIN, MEDICAL EPIGASTRIC IMAGING ASS 84276 CHEST PAIN 08-12-2014 A Mohini CLEMENS UNSPECIFIED [facility] V7612 OTHER 08-12-2014 [facility] SCREENING [facility] MAMMOGRAM INC 7245 UNSPECIFIED 08-11-2014 A Mohini CLEMENS BACKACHE PSC 4011 ESSENTIAL 12-30-2013 YEMIRADHAKIRA PADILLAA HYPERTENSIO N, BENIGN 7821 RASH AND 12-30-2013 KILPELA JEA OTHER NONSPECIFIC SKIN ERUPTION 4471 STRICTURE 12-25-2013 [facility] OF ARTERY AFIA 56216 OTHER 12-25-2013 [facility] SYMPTOMS [facility] INVOLVING INC HEAD AND NECK 1330 SCABIES 12-17-2013 YEMIRADHAKIRA VALERIEA H10.9 UNSPECIFIED CONJUNCTIVI TIS M79.603 PAIN IN [...] 00 1- 1- 00 00 SI ve PA 51 20 20 49 DE IL 80 [...] 00 4- 4- 00 00 SI ve PA 51 20 20 47 DE IL 80 [...] 48 DE ZA 11 17 17 18 PA 0 29 PH IN AR E MA [...] 00 5- 4- 00 00 SI ve PA 51 20 20 47 DE IL 80 17 17 98 -H [address] AR Z MA 10 CY -1 2. OF 5 CY MG NT HI TA AN B A IN C LI 68 01 01 0 40 4 EA 47 GA Ac SI 18 -0 -[address] 17 IN ti NO 00 9- 0- 00 SI 28 EY ve PA 51 20 20 DE IL 80 17 17 PA -H [address] AR AE Z MA L 10 CY S -1 2. OF 5 MG CY NT TA HI B AN A Results Labs Lab Lab Date Result Refere Interp Status Commen Order Detail nces retati t Range on Hemoglobin A1c in Blood (06-27-2017 19:55) Hemoglo 5.4 % 0.0% Normal complet bin A1c 017 - ed in 19:55 7.0% Blood Hemoglobin A1c in Blood (05-27-2017 11:45) Hemoglo 5.3 % 0.0% Normal complet bin A1c 017 - ed in 11:45 7.0% Blood Procedures Procedure DOS Code Location Performer Comment CHIROPRAC 53105 [facility] WILLIAM TIC 7 MANIPULAT [place] SPINAL 1-2 REGIONS APPL 72992 [place] MODALITY 7 1/> AREAS TRACTION MECHANICA L CHIROPRAC 45689 [facility] WILLIAM TIC 7 MANIPULAT [place] SPINAL 1-2 REGIONS APPL 25335 [facility] [place] MODALITY 7 1/> AREAS TRACTION MECHANICA L SCREENING 57524 [facility] 7 [facility] MAMMOGRAP INC INC HY BI 2-VIEW BREAST INC CAD THERAPEUT 75715 [facility] IC 7 PHYSICIAN PHYSICIAN PROPHYLAC S GROUP S GROUP TIC/DX INJECTION SUBQ/IM CYANOCOBA 38169 [facility] [place] IGNACIA 7 [facility] VITAMIN INC INC B-12 COMPREHEN 70410 [facility] SIVE 7 [facility] [place] [address] [facility] FOLIC 7 [facility] [address] [facility] [place] FREE 7 [facility] [place] [address] [facility] [place] THYROID 7 [facility] STIMULATI INC INC NG HORMONE TSH RHEUMATOI 06928 [facility] Jason FACTOR 7 [facility] QUANTITAT INC INC DAMIAN CHIROPRAC 58556 [facility] WILLIAM TIC 7 MANIPULAT [place] SPINAL 1-2 REGIONS APPL 35614 STEWART MCKEONDING MODALITY 7 1/> AREAS TRACTION MECHANICA L COMPREHEN 76464 [facility] [place] SIVE 7 [facility] METABOLIC INC INC PANEL CREATINE 38022 [facility] [place] KINASE MB 7 [facility] [address] [facility] [place] TROPONIN 7 [facility] QUANTITAT INC INC DAMIAN BLOOD 10955 [facility] [place] COUNT 7 [facility] COMPLETE INC INC AUTO&AUTO DIFRNTL WBC THERAPEUT 57955 [facility] [place] IC 7 [facility] INJECTION INC INC IV PUSH EACH NEW DRUG ECG 72796 [facility] IGNACIO ROUTINE 7 [facility] W/LEAST P 12 LDS I&R ONLY RADIOLOGI 50861 [facility] [place] C 7 [facility] EXAMINATI INC INC ON CHEST SINGLE VIEW FRONTAL CREATINE 21592 [facility] BHAT KINASE 7 [facility] TOTAL INC THER 48399 [facility] [place] PROPH/DX 7 [facility] NJX IV INC INC PUSH SINGLE/1S T SBST/DRUG ECG 23935 [facility] [place] ROUTINE 7 [facility] ECG INC INC W/LEAST 12 LDS TRCG ONLY W/O I&R CHIROPRAC 55420 [place] TIC 7 MANIPULAT [place] SPINAL 1-2 REGIONS APPL 07451 [place] MODALITY 7 1/> AREAS TRACTION MECHANICA L CHIROPRAC 84392 [place] TIC 7 MANIPULAT [place] SPINAL 1-2 REGIONS CHIROPRAC 93092 [place] TIC 7 MANIPULAT [place] SPINAL 1-2 REGIONS CHIROPRAC 95927 [place] TIC 6 YANG YANG MANIPULAT DAMIAN [place] SPINAL 1-2 REGIONS CHIROPRAC 23598 [place] TIC 6 YANG YANG MANIPULAT DAM[place] SPINAL 1-2 REGIONS CHIROPRAC 24249 [place] TIC 6 YANG YANG MANIPULAT [place] SPINAL 1-2 REGIONS RADEX 01935 [facility] SPINE 6 N N CERVICAL COMMUNTIY COMMUNTIY 2 OR 3 HOSPITA HOSPITA VIEWS INJECTION J1885 [facility] 6 N N KETOROLAC COMMUNTIY COMMUNTIY HOSPITA HOSPITA TROMETHAM INE PER 15 MG INJECTION J2360 [facility] 6 N N ORPHENADR COMMUNTIY COMMUNTIY INE HOSPITA HOSPITA CITRATE UP TO 60 MG RADEX 95880 [facility] [place] [facility] SPINE 6 RADIOLOGY RHO CERVICAL 4 OR 5 VIEWS RADEX 69748 [facility] [place] [facility] SHOULDER 6 RADIOLOGY RHO COMPLETE MINIMUM 2 VIEWS THERAPEUT 95029 [facility] IC 6 N N PROPHYLAC COMMUNTIY COMMUNTIY TIC/DX HOSPITA HOSPITA INJECTION SUBQ/IM CHIROPRA 34069 ST[facility] SOLIS TIC 6 YANG BRY MANIPULAT DAMIAN [place] SPINAL 1-2 REGIONS CHIROPRAC 27181 [facility] MARTINEZ TIC 6 YANG OMAR MANIPULAT DAMIAN [place] SPINAL 1-2 REGIONS CHIROPRAC 67490 [facility] [place] TIC 6 YANG YANG MANIPULAT [place] SPINAL 1-2 REGIONS COMPREHEN 06924 [facility] SIVE 6 [facility] [place] [address] [facility] FREE 6 [facility] [place] [address] [facility] [place] THYROID 6 [facility] STIMULATI INC INC NG HORMONE TSH ANTIBODY 63099 [facility] [place] JS-B 6 [facility] ARR EB INC INC VIRUS NUCLEAR AG EBNA COLLECTIO 44926 [facility] STONE GAURANG N VENOUS 6 PHYSICIAN BLOOD S GROUP VENIPUNCT URE IMMUNOASS 64732 [facility] [place] AY NFCT 6 [facility] AGT ANTB INC INC QUAL/SEMI CONNER 1 STEP ANTIBODY 28597 [facility] [place] JS-B 6 [facility] ARR EB INC INC VIRUS VIRAL CAPSID VCA BLOOD 22985 [facility] [place] COUNT 6 [facility] COMPLETE INC INC AUTO&AUTO DIFRNTL WBC CHIROPRA 07773 [facility] [place] TIC 6 YANG YANG MANIPULAT DAMIAN TX SPINAL 1-2 REGIONS CHIROPRAC 25778 [place] TIC 6 YANG YANG MANIPULAT DAM[place] SPINAL 1-2 REGIONS THERAPEUT 14000 [place] IC PX 1/> 6 AREAS EACH 15 MIN EXERCISES CHIROPRAC 86902 [place] TIC 6 MANIPULAT DAM[place] SPINAL 1-2 REGIONS APPL 02922 [place] MODALITY 6 1/> AREAS TRACTION MECHANICA L CHIROPRAC 19790 [place] TIC 6 YANG YANG MANIPULAT DAMIAN TX SPINAL 1-2 REGIONS CHIROPRAC 39893 [place] TIC 6 YANG YANG MANIPULAT DAMIAN TX SPINAL 1-2 REGIONS CHIROPRAC 35940 [place] TIC 6 MANIPULAT DAMIAN TX SPINAL 1-2 REGIONS APPL 20155 [place] MODALITY 6 1/> AREAS TRACTION MECHANICA L THERAPEUT 03331 [place] IC PX 1/> 6 AREAS EACH 15 MIN EXERCISES CHIROPRA 73535 [place] TIC 6 YANG YANG MANIPULAT DAMIAN TX SPINAL 1-2 REGIONS CHIROPRAC 08271 [place] TIC 5 YANG YANG MANIPULAT DAMIAN TX SPINAL 1-2 REGIONS CHIROPRAC 82777 [place] TIC 5 YANG YANG MANIPULAT DAM[place] TX SPINAL 1-2 REGIONS OPHTH 21202 [facility] 5 GRE GRE XM&EVAL COMPRE NEW PT 1/> VST URINLS 68654 A C KILPELA DIP 5 SARATH RODRIGUEZ JEA STICK/TAB PSC LET REAGNT NON-AUTO MICRSCPY BILIRUBIN 20908 [facility] DIRECT 5 [place] [address] [facility] THYROID 5 DIAGNOSTI DIAGNOSTI STIMULATI CS CS NG HORMONE TSH COMPREHEN 31290 [facility] SIVE 5 DIAGNOSTI DIAGNOSTI METABOLIC CS PANEL BLOOD 25826 A C NATHALIE BRY COUNT 5 SARATH RODRIGUEZ COMPLETE PSC AUTO&AUTO DIFRNTL WBC CHIROPRA 92815 [place] TIC 5 YANG YANG MANIPULAT DAMIAN TX SPINAL 1-2 REGIONS CHIROPRAC 56548 [place] TIC 5 YANG YANG MANIPULAT DAMIAN TX SPINAL 1-2 REGIONS CHIROPRAC 56871 [place] TIC 5 YANG YANG MANIPULAT DAMIAN TX SPINAL 1-2 REGIONS THERAPEUT 09279 A C FIELD AMB IC 5 SARATH RODRIGUEZ PROPHYLAC PSC TIC/DX INJECTION SUBQ/IM URINLS 19679 A C FIELD AMB DIP 5 SARATH RODRIGUEZ STICK/TAB PSC LET REAGNT NON-AUTO MICRSCPY INJECTION J1885 A C FIELD AMB 5 SARATH RODRIGUEZ KETOROLAC PSC TROMETHAM INE PER 15 MG CHIROPRAC 82668 [place] TIC 5 YANG YANG MANIPULAT DAMIAN TX SPINAL 1-2 REGIONS CHIROPRAC 54043 [place] TIC 5 YANG YANG MANIPULAT DAMIAN TX SPINAL 1-2 REGIONS APPL 09085 [place] MODALITY 5 YANG YANG 1/> AREAS TRACTION MECHANICA L THERAPEUT 79919 [place] IC PX 1/> 5 YANG YANG AREAS EACH 15 MIN EXERCISES RADEX 33170 [facility] 5 MEDICAL AFIA CERVICAL IMAGING 4 OR 5 ASS VIEWS THERAPEUT 46929 A C KILPELA IC 5 SARATH OROZCO PROPHYLAC PSC TIC/DX INJECTION SUBQ/IM INJECTION J1030 A C KILPELA 5 SARATH OROZCO METHYLPRE PSC DNISOLONE ACETATE 40 MG INJ J0702 A C KILPELA BETAMETHA 5 SARATH OROZCO SONE PSC ACETATE & PHOSPHATE 3 MG INJECTION J1885 A C KILPELA 5 SARATH OROZCO KETOROLAC PSC TROMETHAM INE PER 15 MG THERAPEUT 89428 [place] IC PX 1/> 5 YANG YANG AREAS EACH 15 MIN EXERCISES CHIROPRAC 00019 [place] TIC 5 YANG YANG MANIPULAT DAMIAN [place] SPINAL 1-2 REGIONS APPL 30983 [place] MODALITY 5 YANG YANG 1/> AREAS TRACTION MECHANICA L CHIROPRAC 22486 [place] TIC 5 YANG YANG MANIPULAT DAMIAN TX SPINAL 1-2 REGIONS APPL 78860 [place] MODALITY 5 YANG YANG 1/> AREAS TRACTION MECHANICA L THERAPEUT 05862 [place] IC PX 1/> 5 YANG YANG AREAS EACH 15 MIN EXERCISES THERAPEUT 40234 [place] IC PX 1/> 5 YANG YANG AREAS EACH 15 MIN EXERCISES CHIROPRAC 14778 [place] TIC 5 YANG YANG MANIPULAT DAMIAN TX SPINAL 1-2 REGIONS APPL 39276 [place] MODALITY 5 YANG YANG 1/> AREAS TRACTION MECHANICA L CHIROPRAC 53770 STEW[facility] MCKEONDING TIC 5 YANG YANG MANIPULAT DAMIAN TX SPINAL 1-2 REGIONS ECG 67271 A C FIELD AMB ROUTINE 5 SARATH RODRIGUEZ ECG PSC W/LEAST 12 LDS W/I&R THERAPEUT 65893 A C FIELD AMB IC 5 SARATH RODRIGUEZ PROPHYLAC PSC TIC/DX INJECTION SUBQ/IM INJECTION J1885 A C FIELD AMB 5 SARATH RODRIGUEZ KETOROLAC PSC TROMETHAM INE PER [address] THORAX 53107 [facility] W/CONTRAS INC INC T MATERIAL CREATININ 15653 [facility] E BLOOD 4 [facility] INC INC LOCM Q9967 [facility] 300-399 4 [facility] MG/ML INC INC IOD[place] [address] [facility] UREA 4 [facility] [place] [address] [facility] ABDOMEN & 4 [facility] PELVIS INC INC W/O CONTRAST MATERIAL ECG 67293 A C KILPELA ROUTINE 4 SARATH RODRIGUEZ JEA ECG PSC W/LEAST 12 LDS W/I&[place] [address] [facility] TROPONIN 4 [facility] QUANTITAT INC INC DAMIAN URINLS 68880 A C KILPELA DIP 4 SARATH RODRIGUEZ JEA STICK/TAB PSC LET REAGNT NON-AUTO MICRSCPY RADIOLOGI 80288 [facility] C EXAM 4 MEDICAL KALPESH CHEST 2 IMAGING VIEWS ASS FRONTAL&L ATERAL SCREENING G0202 [facility] 4 [facility] MAMMOGRAP INC INC HY CHERYL INCL CAD WHEN PERFORMD COMPUTER- 71039 [facility] AIDED 4 [facility] DETECTION INC INC SCREENING MAMMOGRAP HY DUPLEX 91831 [facility] [place] SCAN 4 [facility] EXTRACRAN INC INC IAL ART COMPL BI STUDY Encounters Encounter Start End Date Code Location Performer Type Date OFFICE 01717 [facility] OUTPATIEN 7 7 PHYSICIAN T VISIT S GROUP 25 MINUTES [facility] OUTPATIEN INC T OFFICE 67595 [facility] FR[facility]MAN OUTPATIEN 7 7 PHYSICIAN T VISIT S GROUP 25 MINUTES [facility] - 7 7 [facility] OUTPATIEN INC T [facility] - 7 7 [facility] OUTPATIEN INC T EMERGENCY 60624 SUSAN TILLMAN DEPT 7 7 PHYSICIAN VISIT S, PLLC HIGH SEVERITY& THREAT FUNCJ OFFICE 81699 [facility] OUTPATIEN 7 7 PHYSICIAN T VISIT S GROUP 15 MINUTES EMERGENCY 80181 [facility] 7 7 [facility] DEPARTMEN INC T VISIT HIGH/URGE NT SEVERITY EMERGENCY 65001 SUSAN TILLMAN 6 6 PHYSICIAN MARY LOU DEPARTMEN S, PLLC T VISIT MODERATE SEVERITY OFFICE 22178 [facility] OUTPATIEN 6 6 T NEW 10 MINUTES HOSPITAL [facility] - 6 6 N OUTPATIEN COMMUNTIY T HOSPITA EMERGENCY 88232 [facility] 6 6 [facility] T VISIT SERV HIGH/URGE NT SEVERITY EMERGENCY 37557 [facility] 6 6 N DEPARTMEN COMMUNTIY T VISIT HOSPITA MODERATE SEVERITY OFFICE 72918 [facility] OUTPATIEN 6 6 PHYSICIAN T NEW 45 S GROUP MINUTES [facility] - 6 6 [facility] OUTPATIEN INC T OFFICE 26063 A Mohini LONDONO 5 5 SARATH OROZCO T VISIT PSC 15 MINUTES OFFICE 74859 A Mohini LONDONO OUTPATIWILL 5 5 SARATH RODRIGUEZ T VISIT PSC 25 MINUTES OFFICE 46004 A Mohini DIAZ 5 5 SARATH RODRIGUEZ T VISIT PSC 15 MINUTES OFFICE 74186 A C FIELD AMB OUTPATIEN 5 5 SARATH RODRIGUEZ T VISIT PSC 15 MINUTES [facility]OSP[facility] - 5 5 [facility] OUTPATIEN INC T OFFICE 54066 A C KILPELA OUTPATIEN 5 5 SARATH OROZCO T VISIT PSC 15 MINUTES OFFICE 51196 KEUZMA [place] OUTPATIEN 5 5 YANG SORIA T NEW 30 MINUTES OFFICE 18787 A C FIELD AMB OUTPATIEN 5 5 SARATH RODRIGUEZ T VISIT PSC 15 MINUTES OFFICE 46119 A C FIELD AMB OUTPATIEN 5 5 SARATH RODRIGUEZ T VISIT PSC 15 MINUTES [facility] - 4 4 [facility] T [facility] - 4 4 [facility]PATIEN INC [facility] 4 4 [facility] OUTPATIEN [facility] T OFFICE 90592 A C KILPELA OUTPATIEN 4 4 SARATH OROZCO T VISIT PSC 25 MINUTES OFFICE 69935 A C KILPELA OUTPATIEN 4 4 SARATH OROZCO T VISIT [facility] 25 MINUTES OFFICE 74651 KILPELA KILPELA OUTPATIEN 4 4 PAM OROZCO T VISIT 15 MINUTES [facility]OSPITAL [facility] - 4 4 [facility] OUTPATIEN INC T OFFICE 11094 KILPELA KILPELA OUTPATIEN 4 4 PAM Cuellar NEW 45 MINUTES
--- OUTSIDE RECORDS SUMMARY | 2017-07-17 16:36 | External Medical Summary Rpt ---
Author Author , VIN BANUELOS Address Unknown Phone [email or web address] Care Team Providers Care Locker Operator Name Role Phone A Mohini CLEMENS MD PSC, Gilbert Unavailable Unavailable Mohini CLEMENS MD PSC BEINEMIKE KALPESH, BEINEKE Unavailable Unavailable KALPESH BESSON, BESSON Unavailable Unavailable MICHELLE OMAR, MICHELLE Unavailable Unavailable MOAR [facility], Unavailable Unavailable [facility] GOLDIE AFIA, Unavailable Unavailable GOLDIE AFIA GOLDIE AFIA, Unavailable Unavailable GOLDIE AFIA [facility] Unavailable Unavailable [place], [facility] JENIFER FIELD AMB, FIELD AMB Unavailable Unavailable FRYMAN, FRYMAN Unavailable Unavailable LAYNE, LAYNE Unavailable Unavailable LAYNE MARY LOU, LAYNE Unavailable Unavailable MARY LOU [facility] Un[facility] PAULINO RHO, PAULINO Unavailable Unavailable RHO [facility] Unavailable Unavailable INC, [facility] Unavailable Unavailable HOSPITAL P, [facility] JACOBSON, JACOBSON Unavailable Unavailable JACOBSON, JACOBSON Unavailable Unavailable [facility], Unavailable Unavailable [facility] KEDING, KEDING Unavailable Unavailable KEDING, KEDING Unavailable Unavailable KEDING YANG, KEDING Unavailable Unavailable YANG KEDING YANG, KEDING Unavailable Unavailable YANG [facility] KILPELA JEA, KILPELA Unavailable Unavailable [...] 2016 Problems Code Diagnosis DOS Provider Status [id number] MIGRAINE 06-06-2017 [place] W/AURA NOT INTRACT W/STATUS MIGRAINOSUS [id number] RADICULOPAT 06-06-2017 [place] HY CERVICAL REGION M542 CERVICALGIA 06-06-2017 [place] I10 ESSENTIAL 05-27-2017 [facility] PRIMARY PHYSICIANS HYPERTENSIO GROUP N N390 URINARY 05-27-2017 [facility] TRACT PHYSICIANS INFECTION GROUP SITE NOT SPECIFIED N939 ABNORMAL 05-27-2017 [facility] UTERINE & PHYSICIANS VAGINAL GROUP BLEEDING UNSPECIFIED R5383 OTHER 05-27-2017 [facility] FATIGUE PHYSICIANS GROUP R739 HYPERGLYCEM 05-27-2017 [facility] IA PHYSICIANS UNSPECIFIED GROUP Z1231 ENCOUNTER 03-13-2017 [facility] MAMMO MAL INC NEOPLASM BREAST M4802 SPINAL 02-28-2017 [facility] STENOSIS PHYSICIANS CERVICAL GROUP REGION I2510 ASHD [place]DI[place] NATION 02-06-2017 [facility] 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 P ANGINA PECTORIS R85060 PAIN IN 02-06-2017 [facility] RIGHT ARM PHYSICIANS, PLLC G41612 PAIN IN 02-06-2017 [facility] LEFT ARM PHYSICIANS GROUP [id number] PAIN IN ARM 02-06-2017 [place] [facility] R0789 OTHER CHEST 02-06-2017 [facility] PAIN PHYSICIANS GROUP R079 CHEST PAIN 02-06-2017 [place] UNSPECIFIED [facility]ICAL IM[facility]ING ASS Z720 TOBACCO USE 02-06-2017 [facility] P H1033 UNSPECIFIED 10-25-2016 [facility] ACUTE PHYSICIANS, CONJUNCTIVI PLLC TIS BILATERAL H109 UNSPECIFIED 10-25-2016 [facility] PHYSICIANS, CONJUNCTIVI PLLC TIS H1013 ACUTE 10-23-2016 [facility] AT[facility]IC CONJUNCTIVI TIS BILATERAL [id number] PAIN IN 09-17-2016 [facility] [place] [facility] SHOULDER P88960 OTHER 09-17-2016 [facility] SPECIFIED COMMUNTIY JOINT HOSPITA DISORDERS RIGHT SHOULDER M4302 SPONDYLOLYS 09-17-2016 [facility] CERVICAL N EMERGENCY REGION SERV M5030 OTH 09-17-2016 [facility] CERVICAL COMMUNTIY DISC HOSPITA DEGENERATIO N UNS CERV REGION Q93948 UNS ROT 09-17-2016 [facility] CUFF COMMUNTIY TEAR/RUPT HOSPITA RT SHLDR NOT SPEC TRAUMAT M7521 BICIPITAL 09-17-2016 [facility] TENDINITIS N EMERGENCY RIGHT SERV SHOULDER M7551 BURSITIS OF 09-17-2016 [facility] RIGHT N EMERGENCY SHOULDER SERV M7591 SHOULDER 09-17-2016 [facility] LESION N EMERGENCY UNSPECIFIED SERV RIGHT SHOULDER T72249 MIGRAINE 06-13-2016 [facility] UNS NOT PHYSICIANS INTRACT W/O GROUP STATUS MIGRAINOSUS J449 CHRONIC 06-13-2016 [facility] OBSTRUCTIVE PHYSICIANS PULMONARY GROUP DISEASE UNS K047 PERIAPICAL 06-13-2016 [facility] ABSCESS PHYSICIANS WITHOUT GROUP SINUS Y56034 CELLULITIS 06-13-2016 [facility] OF HEAD ANY PHYSICIANS PART GROUP EXCEPT FACE R161 SPLENOMEGAL 06-13-2016 [facility] Y NOT PHYSICIANS ELSEWHERE GROUP CLASSIFIED Z0000 ENCOUNTER 06-13-2016 [facility] GEN ADULT PHYSICIANS MED EXAM [...] DIGESTIVE SYSTEM 7231 CERVICALGIA 08-02-2015 [place] YANG 49024 SPASM OF 08-02-2015 [facility] SORIA MUSCLE 45915 MIGRAINE 05-17-2015 A Mohini CLEMENS UNSP W/O PSC INTRACT W/O STATUS MIGRAINOSUS 25784 HEMIPLEGIC 04-19-2015 A Mohini CLEMENS MIGRAINE PSC W/INTRACTAB LE W/O SM 7881 DYSURIA 04-19-2015 A Mohini CLEMENS MD PSC 02937 CHRONIC 02-18-2015 A Mohini DEL CID MD PSC W/O AURA W/O INTRACTABLE W/O SM 496 CHRONIC 02-18-2015 A Mohini CLEMENS AIRWAY PSC OBSTRUCTION NEC 07005 OTHER CHEST 02-17-2015 A Mohini CLEMENS PAIN PSC 37449 SHORTNESS 09-10-2014 [place] OF BRE[facility] 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 SOLITARY 09-10-2014 [facility] PULMONARY [facility] NODULE INC 02942 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 5718 OTHER 08-20-2014 [place] CHRONIC MED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 90403 ABDOMINAL 08-20-2014 [facility] PAIN, [facility] UNSPECIFIED INC SITE 42818 ABDOMINAL 08-20-2014 [place] PAIN, MEDICAL EPIGASTRIC IMAGING ASS 48319 CHEST PAIN 08-12-2014 A Mohini CLEMENS UNSPECIFIED [facility] V7612 OTHER 08-12-2014 [facility] SCREENING [facility] MAMMOGRAM INC 7245 UNSPECIFIED 08-11-2014 A Mohini CLEMENS BACKACHE PSC 4011 ESSENTIAL 12-30-2013 YEMIRADHAKIRA PADILLAA HYPERTENSIO N, BENIGN 7821 RASH AND 12-30-2013 KILPELA JEA OTHER NONSPECIFIC SKIN ERUPTION 4471 STRICTURE 12-25-2013 [facility] OF ARTERY AFIA 26859 OTHER 12-25-2013 [facility] SYMPTOMS [facility] INVOLVING [...] 00 1- 1- 00 00 SI ve DC 51 20 20 49 DE IL 80 [...] 00 4- 4- 00 00 SI ve DC 51 20 20 47 DE IL 80 [...] 48 DE ZA 11 17 17 18 DC 0 29 PH IN AR E MA [...] 00 5- 4- 00 00 SI ve DC 51 20 20 47 DE IL 80 17 17 98 -H [address] AR Z MA 10 CY -1 2. OF 5 CY MG NT HI TA AN B A IN C LI 68 01 01 0 40 4 EA 47 GA Ac SI 18 -0 -[address] 17 IN ti NO 00 9- 0- 00 SI 28 EY ve DC 51 20 20 DE IL 80 17 17 OK -H [address] AR AE [...] Procedure DOS Code Location Performer Comment CHIROPRAC 88616 SETWART WILLIAM TIC 7 MANIPULAT [place] SPINAL 1-2 REGIONS APPL 99690 [place] MODALITY 7 1/> AREAS TRACTION MECHANICA L CHIROPRAC 47108 STEWART WILLIAM TIC 7 MANIPULAT [place] SPINAL 1-2 REGIONS APPL 03342 STEWART [place] MODALITY 7 1/> AREAS TRACTION MECHANICA L SCREENING 65306 [facility] 7 [facility] MAMMOGRAP INC INC HY BI 2-VIEW BREAST INC CAD THERAPEUT 84162 [facility] IC 7 PHYSICIAN PHYSICIAN PROPHYLAC S GROUP S GROUP TIC/DX INJECTION SUBQ/IM CYANOCOBA 74854 [facility] [place] IGNACIA 7 [facility] VITAMIN INC INC B-12 COMPREHEN 23268 [facility] SIVE 7 [facility] [place] [address] [facility] FOLIC 7 [facility] [address] [facility] [place] FREE 7 [facility] [place] [address] [facility] THYROID 7 [facility] STIMULATI INC INC NG HORMONE TSH RHEUMATOI 01764 [facility] Jason FACTOR 7 [facility] QUANTITAT INC INC DAMIAN CHIROPRAC 24711 STEWART WILLIAM TIC 7 MANIPULAT [place] SPINAL 1-2 REGIONS APPL 39736 STEWART MCKEONDING MODALITY 7 1/> AREAS TRACTION MECHANICA L COMPREHEN 18600 [facility] [place] SIVE 7 [facility] METABOLIC INC INC PANEL CREATINE 20476 T[facility] [place] KINASE MB 7 [facility] [place] [address] [facility] TROPONIN 7 [facility] QUANTITAT INC INC DAMIAN BLOOD 72083 [facility] COUNT 7 [facility] COMPLETE INC INC AUTO&AUTO DIFRNTL WBC THERAPEUT 12254 [facility] IC 7 [facility] INJECTION INC INC IV PUSH EACH NEW DRUG ECG 56070 [facility] IGNACIO ROUTINE 7 [facility] W/LEAST P 12 LDS I&R ONLY RADIOLOGI 25907 [facility] C 7 [facility] EXAMINATI INC INC ON CHEST SINGLE VIEW FRONTAL CREATINE 83027 [facility] BHAT KINASE 7 [facility] TOTAL INC THER 61134 [facility] [place] PROPH/DX 7 [facility] NJX IV INC INC PUSH SINGLE/1S T SBST/DRUG ECG 82920 [facility] [place] ROUTINE 7 [facility] ECG INC INC W/LEAST 12 LDS TRCG ONLY W/O I&R CHIROPRAC 44319 [place] TIC 7 MANIPULAT [place] SPINAL 1-2 REGIONS APPL 93136 [place] MODALITY 7 1/> AREAS TRACTION MECHANICA L CHIROPRAC 67632 [place] TIC 7 MANIPULAT [place] SPINAL 1-2 REGIONS CHIROPRAC 46024 [place] TIC 7 MANIPULAT [place] SPINAL 1-2 REGIONS CHIROPRAC 34382 [place] TIC 6 YANG YANG MANIPULAT [place] SPINAL 1-2 REGIONS CHIROPRAC 46399 [place] TIC 6 YANG YANG MANIPULAT [place] SPINAL 1-2 REGIONS CHIROPRAC 15753 [place] TIC 6 YANG YANG MANIPULAT [place] SPINAL 1-2 REGIONS RADEX 93492 [facility] SPINE 6 N N CERVICAL COMMUNTIY COMMUNTIY 2 OR 3 HOSPITA HOSPITA VIEWS INJECTION J1885 [facility] 6 N N KETOROLAC COMMUNTIY COMMUNTIY HOSPITA HOSPITA TROMETHAM INE PER 15 MG INJECTION J2360 [facility] 6 N N ORPHENADR COMMUNTIY COMMUNTIY INE HOSPITA HOSPITA CITRATE UP TO 60 MG RADEX 03482 [facility] [place] [facility] SPINE 6 RADIOLOGY RHO CERVICAL 4 OR 5 VIEWS RADEX 62002 [facility] [place] SHOULDER 6 RADIOLOGY RHO COMPLETE MINIMUM 2 VIEWS THERAPEUT 56006 [facility] IC 6 N N PROPHYLAC COMMUNTIY COMMUNTIY TIC/DX HOSPITA HOSPITA INJECTION SUBQ/IM CHIROPRA 16824 [facility] SOLIS TIC 6 YANG BRY MANIPULAT [place] SPINAL 1-2 REGIONS CHIROPRAC 32456 [facility] MARTINEZ TIC 6 YANG OMAR MANIPULAT [place] SPINAL 1-2 REGIONS CHIROPRAC 96176 [facility] [place] TIC 6 YANG YANG MANIPULAT [place] SPINAL 1-2 REGIONS COMPREHEN 32850 [facility] SIVE 6 [facility] [place] [address] [facility] FREE 6 [facility] [place] [address] [facility] THYROID 6 [facility] STIMULATI INC INC NG HORMONE TSH ANTIBODY 38110 [facility] JS-B 6 [facility] ARR EB INC INC VIRUS NUCLEAR AG EBNA COLLECTIO 45638 [facility] STONE GAURANG N VENOUS 6 PHYSICIAN BLOOD S GROUP VENIPUNCT URE IMMUNOASS 72709 [facility] [place] AY NFCT 6 [facility] AGT ANTB INC INC QUAL/SEMI CONNER 1 STEP ANTIBODY 45614 [facility] JS-B 6 [facility] ARR EB INC INC VIRUS VIRAL CAPSID VCA BLOOD 04919 [facility] [place] COUNT 6 [facility] COMPLETE INC INC AUTO&AUTO DIFRNTL WBC CHIROPRA 71224 [facility] [place] TIC 6 YANG YANG MANIPULAT [place] SPINAL 1-2 REGIONS CHIROPRAC 21361 [place] TIC 6 YANG YANG MANIPULAT [place] SPINAL 1-2 REGIONS THERAPEUT 57111 [place] IC PX 1/> 6 AREAS EACH 15 MIN EXERCISES CHIROPRAC 69200 [place] TIC 6 MANIPULAT [place] SPINAL 1-2 REGIONS APPL 63314 [place] MODALITY 6 1/> AREAS TRACTION MECHANICA L CHIROPRAC 74227 [place] TIC 6 YANG YANG MANIPULAT [place] SPINAL 1-2 REGIONS CHIROPRAC 57269 [place] TIC 6 YANG YANG MANIPULAT DAM[place] SPINAL 1-2 REGIONS CHIROPRAC 78933 [place] TIC 6 MANIPULAT [place] SPINAL 1-2 REGIONS APPL 45009 [place] MODALITY 6 1/> AREAS TRACTION MECHANICA L THERAPEUT 38265 [place] IC PX 1/> 6 AREAS EACH 15 MIN EXERCISES CHIROPRA 48516 [place] TIC 6 YANG YANG MANIPULAT DAM[place] SPINAL 1-2 REGIONS CHIROPRAC 76271 [place] TIC 5 YANG YANG MANIPULAT [place] SPINAL 1-2 REGIONS CHIROPRAC 54861 [place] TIC 5 YANG YANG MANIPULAT [place] SPINAL 1-2 REGIONS OPHTH 72320 [facility] 5 GRE GRE XM&EVAL COMPRE NEW PT 1/> VST URINLS 81590 A C KILPELA DIP 5 SARATH RODRIGUEZ JEA STICK/TAB PSC LET REAGNT NON-AUTO MICRSCPY BILIRUBIN 09442 [facility] DIRECT 5 [place] [address] [facility] THYROID 5 DIAGNOSTI DIAGNOSTI STIMULATI CS CS NG HORMONE TSH COMPREHEN 75235 [facility] SIVE 5 DIAGNOSTI DIAGNOSTI METABOLIC CS PANEL BLOOD 90312 A C NATHALIE BRY COUNT 5 SARATH RODRIGUEZ COMPLETE PSC AUTO&AUTO DIFRNTL WBC CHIROPRA 00004 [place] TIC 5 YANG YANG MANIPULAT DAM[place] SPINAL 1-2 REGIONS CHIROPRAC 26478 [place] TIC 5 YANG YANG MANIPULAT DAM[place] SPINAL 1-2 REGIONS CHIROPRAC 76380 [place] TIC 5 YANG YANG MANIPULAT DAM[place] TX SPINAL 1-2 REGIONS THERAPEUT 95704 A C FIELD AMB IC 5 SARATH RODRIGUEZ PROPHYLAC PSC TIC/DX INJECTION SUBQ/IM URINLS 66479 A C FIELD AMB DIP 5 SARATH RODRIGUEZ STICK/TAB PSC LET REAGNT NON-AUTO MICRSCPY INJECTION J1885 A C FIELD AMB 5 SARATH RODRIGUEZ KETOROLAC PSC TROMETHAM INE PER 15 MG CHIROPRAC 44914 [place] TIC 5 YANG YANG MANIPULAT DAM[place] SPINAL 1-2 REGIONS CHIROPRAC 39988 [place] TIC 5 YANG YANG MANIPULAT [place] SPINAL 1-2 REGIONS APPL 60726 [place] MODALITY 5 YANG YANG 1/> AREAS TRACTION MECHANICA L THERAPEUT 30036 [place] IC PX 1/> 5 YANG YANG AREAS EACH 15 MIN EXERCISES RADEX 64218 [facility] SPINE 5 MEDICAL [place] CERVICAL IMAGING 4 OR 5 ASS VIEWS THERAPEUT 59318 A C KILPELA IC 5 SARATH OROZCO PROPHYLAC PSC TIC/DX INJECTION SUBQ/IM INJECTION J1030 A C KILPELA 5 SARATH OROZCO METHYLPRE PSC DNISOLONE ACETATE 40 MG INJ J0702 A C KILPELA BETAMETHA 5 SARATH OROZCO SONE PSC ACETATE & PHOSPHATE 3 MG INJECTION J1885 A C KILPELA 5 SARATH OROZCO KETOROLAC PSC TROMETHAM INE PER 15 MG THERAPEUT 15162 [place] IC PX 1/> 5 YANG YANG AREAS EACH 15 MIN EXERCISES CHIROPRAC 60540 [place] TIC 5 YANG YANG MANIPULAT DAMIAN [place] SPINAL 1-2 REGIONS APPL 92037 [place] MODALITY 5 YANG YANG 1/> AREAS TRACTION MECHANICA L CHIROPRAC 55095 [place] TIC 5 YANG YANG MANIPULAT DAMIAN [place] SPINAL 1-2 REGIONS APPL 79677 [place] MODALITY 5 YANG YANG 1/> AREAS TRACTION MECHANICA L THERAPEUT 66004 [place] IC PX 1/> 5 YANG YANG AREAS EACH 15 MIN EXERCISES THERAPEUT 47703 [place] IC PX 1/> 5 YANG YANG AREAS EACH 15 MIN EXERCISES CHIROPRAC 79962 [place] TIC 5 YANG YANG MANIPULAT DAMIAN TX SPINAL 1-2 REGIONS APPL 32816 [place] MODALITY 5 YANG YANG 1/> AREAS TRACTION MECHANICA L CHIROPRAC 16898 [facility] MCKEONDING TIC 5 YANG YANG MANIPULAT DAMIAN TX SPINAL 1-2 REGIONS ECG 40246 A C FIELD AMB ROUTINE 5 SARATH RODRIGUEZ ECG PSC W/LEAST 12 LDS W/I&R THERAPEUT 36827 A C FIELD AMB IC 5 SARATH RODRIGUEZ PROPHYLAC PSC TIC/DX INJECTION SUBQ/IM INJECTION J1885 A C FIELD AMB 5 SARATH RODRIGUEZ KETOROLAC PSC TROMETHAM INE PER [address] THORAX 10895 [facility] W/CONTRAS INC INC T MATERIAL CREATININ 60202 [facility] E BLOOD 4 [facility] INC INC LOCM Q9967 [facility] 300-399 4 [facility] MG/ML INC INC IODINE [place] [address] [facility] UREA 4 [facility] [place] [address] [facility] ABDOMEN & 4 [facility] PELVIS INC INC W/O CONTRAST MATERIAL ECG 36663 A C KILPELA ROUTINE 4 SARATH RODRIGUEZ JEA ECG PSC W/LEAST 12 LDS W/I&[place] [address] [facility] TROPONIN 4 [facility] QUANTITAT INC INC DAMIAN URINLS 53426 A C KILPELA DIP 4 SARATH RODRIGUEZ JEA STICK/TAB PSC LET REAGNT NON-AUTO MICRSCPY RADIOLOGI 11674 [facility] C EXAM 4 MEDICAL KALPESH CHEST 2 IMAGING VIEWS ASS FRONTAL&L ATERAL SCREENING G0202 [facility] 4 [facility] MAMMOGRAP INC INC HY CHERYL INCL CAD WHEN PERFORMD COMPUTER- 02688 [facility] AIDED 4 [facility] DETECTION INC INC SCREENING MAMMOGRAP HY DUPLEX 98989 [facility] SCAN 4 [facility] EXTRACRAN INC INC IAL ART COMPL BI STUDY Encounters Encounter Start End Date Code Location Performer Type Date OFFICE 31484 [facility] OUTPATIEN 7 7 PHYSICIAN T VISIT S GROUP 25 MINUTES [facility] OUTPATIEN INC T OFFICE 10274 [facility] OUTPATIEN 7 7 PHYSICIAN T VISIT S GROUP 25 MINUTES [facility] - 7 7 [facility] OUTPATIEN INC T [facility] - 7 7 [facility] OUTPATIEN INC T EMERGENCY 25623 SUSAN TILLMAN DEPT 7 7 PHYSICIAN VISIT S, PLLC HIGH SEVERITY& THREAT FUNCJ OFFICE 11096 [facility] OUTPATIEN 7 7 PHYSICIAN T VISIT S GROUP 15 MINUTES EMERGENCY 53277 [facility] 7 7 [facility] DEPARTMEN INC T VISIT HIGH/URGE NT SEVERITY EMERGENCY 30078 SUSAN TILLMAN 6 6 PHYSICIAN MARY LOU DEPARTMEN S, PLLC T VISIT MODERATE SEVERITY OFFICE 76342 JAC[facility] JACOBS[facility] OUTPATIEN 6 6 T NEW 10 MINUTES [facility] - 6 6 N OUTPATIEN COMMUNTIY T HOSPITA EMERGENCY 40551 [facility] 6 6 [facility] T VISIT SERV HIGH/URGE NT SEVERITY EMERGENCY 30112 [facility] 6 6 N DEPARTMEN COMMUNTIY T VISIT HOSPITA MODERATE SEVERITY OFFICE 04636 [facility] OUTPATIEN 6 6 PHYSICIAN T NEW 45 S GROUP MINUTES [facility] - 6 6 [facility] OUTPATIEN INC T OFFICE 00017 A Mohini LONDONO 5 5 SARATH OROZCO T VISIT PSC 15 MINUTES OFFICE 91344 A Mohini LONDONO OUTPATIWILL 5 5 SARATH RODRIGUEZ T VISIT PSC 25 MINUTES OFFICE 08038 A Mohini DIAZ 5 5 SARATH RODRIGUEZ T VISIT PSC 15 MINUTES OFFICE 82246 A C FIELD AMB OUTPATIEN 5 5 SARATH RODRIGUEZ T VISIT PSC 15 MINUTES [facility] - 5 5 [facility] OUTPATIEN INC T OFFICE 41100 A C KILPELA OUTPATIEN 5 5 SARATH OROZCO T VISIT PSC 15 MINUTES OFFICE 29481 KEUZMA [facility] OUTPATIEN 5 5 YANG SORIA T NEW 30 MINUTES OFFICE 74899 A C FIELD AMB OUTPATIEN 5 5 SARATH RODRIGUEZ T VISIT PSC 15 MINUTES OFFICE 90616 A C FIELD AMB OUTPATIEN 5 5 SARATH RODRIGUEZ T VISIT PSC 15 MINUTES [facility] - 4 4 [facility] T [facility] 4 4 [facility] 4 4 [facility] OUTPATIEN [facility] T OFFICE 02711 A C KILPELA OUTPATIEN 4 4 SARATH OROZCO T VISIT PSC 25 MINUTES OFFICE 09107 A C KILPELA OUTPATIEN 4 4 SARATH OROZCO T VISIT [facility] 25 MINUTES OFFICE 35006 KILPELA KILPELA OUTPATIEN 4 4 PAM OROZCO T VISIT 15 MINUTES [facility]OSPITAL [facility] - 4 4 [facility] OUTPATIEN INC T OFFICE 78561 KILPELA KILPELA OUTPATIEN 4 4 PAM Cuellar NEW 45 MINUTES
--- OUTSIDE RECORDS SUMMARY | 2017-07-17 16:38 | External Medical Summary Rpt ---
Author Author , VIN BANUELOS Address Unknown Phone [email or web address] Providers Care Machine Bobbin Winder Name Role Phone A Mohini CLEMENS MD PSC, Gilbert Unavailable Unavailable Mohini CLEMENS MD PSC DUANE POSEY, DUANE Unavailable Unavailable KALPESH BESSON, BESSON Unavailable Unavailable MICHELLE OMAR, MICHELLE Unavailable Unavailable OMAR [facility], Unavailable Unavailable [facility] GOLDIE AFIA, Unavailable Unavailable GOLDIE AFIA GOLDIE AFIA, Unavailable Unavailable GOLDIE AFIA [facility] Unavailable Unavailable [facility], [facility] FIELD AM[facility], FIELD AMB Unavailable Unavailable FRYMAN, FRYMAN Unavailable Unavailable LAYNE, LAYNE Unavailable Unavailable LAYNE MARY LOU, LAYNE Unavailable Unavailable MARY LOU [facility], [facility] PAULINO RHO, PAULINO Unavailable Unavailable RHO [facility] Unavailable Unavailable INC, [facility] Unavailable Unavailable HOSPITAL P, [facility] JACOBSON, JACOBSON Unavailable Unavailable JACOBSON, JACOBSON Unavailable Unavailable [facility], Unavailable Unavailable [facility] KEDING, KEDING Unavailable Unavailable [...] 2016 Problems Code Diagnosis DOS Provider Status [id number] MIGRAINE 06-06-2017 [place] W/AURA NOT INTRACT W/STATUS MIGRAINOSUS M5412 RADICULOPAT 06-06-2017 [place] HY CERVICAL REGION M542 CERVICALGIA 06-06-2017 [place] I10 ESSENTIAL 05-27-2017 [facility] PRIMARY PHYSICIANS HYPERTENSIO GROUP N N390 URINARY 05-27-2017 [facility] TRACT PHYSICIANS INFECTION GROUP SITE NOT SPECIFIED N939 ABNORMAL 05-27-2017 [facility] UTERINE & PHYSICIANS VAGINAL GROUP BLEEDING UNSPECIFIED R5383 OTHER 05-27-2017 [facility] FATIGUE PHYSICIANS GROUP R739 HYPERGLYCEM 05-27-2017 [facility] IA PHYSICIANS UNSPECIFIED GROUP Z1231 ENCOUNTER 03-13-2017 [facility] MAMMO MALIG INC NEOPLASM BREAST M4802 SPINAL 02-28-2017 [facility] STENOSIS PHYSICIANS CERVICAL GROUP REGION I2510 ASHD UNGA 02-06-2017 [facility] ARTERY W/O [facility] P ANGINA PECTORIS [id number] PAIN IN 02-06-2017 [facility] RIGHT ARM PHYSICIANS, PLLC G43851 PAIN IN 02-06-2017 [facility] LEFT ARM PHYSICIANS GROUP [id number] PAIN IN ARM 02-06-2017 [facility] ASS R0789 OTHER CHEST 02-06-2017 [facility] PAIN PHYSICIANS GROUP R079 CHEST PAIN 02-06-2017 [place] UNSPECIFIED [facility]ICAL IMAGING ASS Z720 TOBACCO USE 02-06-2017 [facility] P H1033 UNSPECIFIED 10-25-2016 [facility] ACUTE PHYSICIANS, CONJUNCTIVI PLLC TIS BILATERAL H109 UNSPECIFIED 10-25-2016 [facility] PHYSICIANS, CONJUNCTIVI PLLC TIS H1013 ACUTE 10-23-2016 [facility] CONJUNCTIVI TIS BILATERAL I77481 PAIN IN 09-17-2016 [facility] [place] [facility] SHOULDER Q21663 OTHER 09-17-2016 [facility] SPECIFIED COMM[facility]TIY JOINT HOSPITA DISORDERS RIGHT SHOULDER M4302 SPONDYLOLYS 09-17-2016 [facility] CERVICAL N EMERGENCY REGION SERV M5030 OTH 09-17-2016 [facility] CERVICAL COMMUNTIY DISC HOSPITA DEGENERATIO N UNS CERV REGION A02621 UNS ROT 09-17-2016 [facility] CUFF COMMUNTIY TEAR/RUPT HOSPITA RT SHLDR NOT SPEC TRAUMAT M7521 BICIPITAL 09-17-2016 [facility] TENDINITIS N EMERGENCY RIGHT SERV SHOULDER M7551 BURSITIS OF 09-17-2016 [facility] RIGHT N EMERGENCY SHOULDER SERV M7591 SHOULDER 09-17-2016 [facility] LESION N EMERGENCY UNSPECIFIED SERV RIGHT SHOULDER P59999 MIGRAINE 06-13-2016 [facility] UNS NOT PHYSICIANS INTRACT W/O GROUP STATUS MIGRAINOSUS J449 CHRONIC 06-13-2016 [facility] OBSTRUCTIVE PHYSICIANS PULMONARY GROUP DISEASE UNS K047 PERIAPICAL 06-13-2016 [facility] ABSCESS PHYSICIANS WITHOUT GROUP SINUS F81798 CELLULITIS 06-13-2016 [facility] OF HEAD ANY PHYSICIANS PART GROUP EXCEPT FACE R161 SPLENOMEGAL 06-13-2016 [facility] Y NOT PHYSICIANS ELSEWHERE GROUP CLASSIFIED Z0000 ENCOUNTER 06-13-2016 [facility] GEN ADULT PHYSICIANS MED EXAM GROUP [...] DIGESTIVE SYSTEM 7231 CERVICALGIA 08-02-2015 [place] YANG 96185 SPASM OF 08-02-2015 [facility] SORIA MUSCLE 23013 MIGRAINE 05-17-2015 A Mohini CLEMENS UNSP W/O PSC INTRACT W/O STATUS MIGRAINOSUS 30643 HEMIPLEGIC 04-19-2015 A Mohini CLEMENS MIGRAINE PSC W/INTRACTAB LE W/O SM 7881 DYSURIA 04-19-2015 A Mohini CLEMENS MD PSC 49780 CHRONIC 02-18-2015 A Mohini CLEMENS MIGRAINE PSC W/O AURA W/O INTRACTABLE W/O SM 496 CHRONIC 02-18-2015 A Mohini CLEMENS AIRWAY PSC OBSTRUCTION NEC 78926 OTHER CHEST 02-17-2015 A Mohini CLEMENS PAIN PSC 15753 SHORTNESS 09-10-2014 [place] [facility] BREATH MEDICAL IMAGING ASS 21059 SOLITARY 09-10-2014 [facility] PULMON[facility] NODULE INC 82670 DIVERTICULO 08-20-2014 [place] SIS OF MEDICAL COLON IMAGING ASS 5718 OTHER 08-20-2014 [place] CHRONIC MED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 46461 ABDOMINAL 08-20-2014 [facility] PAIN, [facility] UNSPECIFIED INC SITE 08798 ABDOMINAL 08-20-2014 [facility], MEDICAL EPIGASTRIC IMAGING ASS 35834 CHEST PAIN 08-12-2014 A Mohini CLEMENS UNSPECIFIED [facility] V7612 OTHER 08-12-2014 [facility] SCREENING [facility] MAMMOGRAM INC 7245 UNSPECIFIED 08-11-2014 A Mohini CLEMENS BACKACHE PSC 4011 ESSENTIAL 12-30-2013 KIL[facility]KIR[facility] PADILLAA HYPERTENSIO N, BENIGN 7821 RASH AND 12-30-2013 KILPELA JEA OTHER NONSPECIFIC SKIN ERUPTION 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 OF 5 CY MG NT HI TA AN B A IN C LI 68 01 01 0 40 4 EA 47 GA Ac SI 18 -0 -[address] 17 IN ti NO 00 9- 0- 00 SI 28 EY ve KS 51 20 20 DE IL 80 17 17 HI -H [address] AR AE Z MA L 10 CY S -1 2. OF 5 MG CY NT TA HI B AN A Procedures Procedure DOS Code Location Performer Comment [facility] 35867 STEWART WILLIAM TIC 7 MANIPULAT [place] SPINAL 1-2 REGIONS APPL 39566 [facility] WILLIAM MODALITY 7 1/> AREAS TRACTION MECHANICA L CHIROPRAC 77138 [facility] TIC 7 MANIPULAT [place] SPINAL 1-2 REGIONS APPL 10305 STEWART [place] MODALITY 7 1/> AREAS TRACTION MECHANICA L SCREENING 28666 [facility] MAMMOGRAP INC INC HY BI 2-VIEW BREAST INC CAD RHEUMATOI 31912 [facility] D FACTOR 7 [facility] QUANTITAT INC INC DAMIAN COMPREHEN 66056 [facility] SIVE [facility] [address] [facility] FOLIC 7 [facility] [place] [address] [facility] FREE 7 [facility] [place] [address] [facility] THYROID 7 [facility] STIMULATI INC INC NG HORMONE TSH THERAPEUT 18953 [facility] IC 7 PHYSICIAN PHYSICIAN PROPHYLAC S GROUP S GROUP TIC/DX INJECTION SUBQ/IM CYANOCOBA 63448 [facility] IGNACIA 7 [facility] VITAMIN INC INC B-12 CHIROPRAC 78903 [facility] WILL[facility] TIC 7 MANIPULAT [place] SPINAL 1-2 REGIONS APPL 04219 [facility] WILL[facility] MODALITY 7 1/> [place] [address] [facility] TROPONIN 7 [facility] QUANTITAT INC INC DAMIAN BLOOD 96224 [facility] COUNT 7 [facility] COMPLETE INC INC AUTO&AUTO DIFRNTL WBC THERAPEUT 28005 [facility] IC 7 [facility] INJECTION INC INC IV PUSH EACH NEW DRUG ECG 32938 [facility] IGNACIO ROUTINE 7 [facility] W/LEAST P 12 LDS I&R ONLY RADIOLOGI 59019 [facility] C 7 [facility] EXAMINATI INC INC ON CHEST SINGLE VIEW FRONTAL COMPREHEN 75175 [facility] SIVE 7 [facility] METABOLIC INC INC PANEL CREATINE 38035 [facility] KINASE MB 7 [facility] FRACTION INC INC ONLY CREATINE 36671 [facility] BHAT KINASE 7 [facility] TOTAL INC THER 67062 [facility] PROPH/DX 7 [facility] NJX IV INC INC PUSH SINGLE/1S T SBST/DRUG ECG 05031 [facility] ROUTINE 7 [facility] ECG INC INC W/LEAST 12 LDS TRCG ONLY W/O I&R CHIROPRAC 89367 [facility] TIC 7 MANIPULAT [place] SPINAL 1-2 REGIONS APPL 21272 [facility] [place] MODALITY 7 1/> AREAS TRACTION MECHANICA L CHIROPRAC 46095 [place] TIC 7 MANIPULAT [place] SPINAL 1-2 REGIONS CHIROPRAC 36799 [place] TIC 7 MANIPULAT [place] SPINAL 1-2 REGIONS CHIROPRAC 09025 [place] TIC 6 YANG YANG MANIPULAT DAMIAN TX SPINAL 1-2 REGIONS CHIROPRA 02207 [facility] TIC 6 YANG YANG MANIPULAT DAMIAN TX SPINAL 1-2 REGIONS CHIROPRAC 03959 [facility] TIC 6 YANG YANG MANIPULAT DAMIAN TX SPINAL 1-2 REGIONS THERAPEUT 69796 [facility] IC 6 N N PROPHYLAC COMMUNTIY COMMUNTIY TIC/DX HOSPITA HOSPITA INJECTION SUBQ/IM RADEX 37066 [facility] SPINE 6 N N CERVICAL COMMUNTIY COMMUNTIY 2 OR 3 HOSPITA HOSPITA VIEWS INJECTION J1885 [facility] 6 N N KETOROLAC COMMUNTIY COMMUNTIY HOSPITA HOSPITA TROMETHAM INE PER 15 MG INJECTION J2360 [facility] 6 N N ORPHENADR COMMUNTIY COMMUNTIY INE HOSPITA HOSPITA CITRATE UP TO 60 MG RADEX 68347 [facility] [place] [facility] SPINE 6 RADIOLOGY RHO CERVICAL 4 OR 5 VIEWS RADEX 44167 [facility] [place] [facility] SHOULDER 6 RADIOLOGY RHO COMPLETE MINIMUM 2 VIEWS CHIROPRA 13493 [facility] CHAVESINO TIC 6 YANG BRY MANIPULAT DAMIAN TX SPINAL 1-2 REGIONS CHIROPRA 03433 [facility] VALEROILL TIC 6 YANG OMAR MANIPULAT DAMIAN TX SPINAL 1-2 REGIONS CHIROPRAC 42138 [facility] MCKEONDING TIC 6 YANG YANG MANIPULAT [place] SPINAL 1-2 REGIONS IMMUNOASS 75209 [facility] AY NFCT 6 [facility] AGT ANTB INC INC QUAL/SEMI CONNER 1 STEP COMPREHEN 90920 [facility] SIVE 6 [facility] [place] [address] [facility] FREE 6 [facility] [place] [address] [facility] THYROID 6 [facility] STIMULATI INC INC NG HORMONE TSH ANTIBODY 48564 [facility] JS-B 6 [facility] ARR EB INC INC VIRUS NUCLEAR AG EBNA COLLECTIO 55381 [facility] STONE GAURANG N VENOUS 6 PHYSICIAN BLOOD S GROUP VENIPUNCT URE ANTIBODY 58374 [facility] JS-B 6 [facility] ARR EB INC INC VIRUS VIRAL CAPSID VCA BLOOD 37912 [facility] COUNT 6 [facility] COMPLETE INC INC AUTO&AUTO DIFRNTL WBC CHIROPRAC 00024 [facility] [place] TIC 6 YANG YANG MANIPULAT DAMIAN TX SPINAL 1-2 REGIONS CHIROPRAC 33271 [place] TIC 6 YANG YANG MANIPULAT DAM[place] SPINAL 1-2 REGIONS THERAPEUT 31255 [place] IC PX 1/> 6 AREAS EACH 15 MIN EXERCISES CHIROPRAC 89466 [place] TIC 6 MANIPULAT [place] SPINAL 1-2 REGIONS APPL 31917 [place] MODALITY 6 1/> AREAS TRACTION MECHANICA L CHIROPRAC 99282 [place] TIC 6 YANG YANG MANIPULAT DAMIAN TX SPINAL 1-2 REGIONS CHIROPRAC 48313 [place] TIC 6 YANG YANG MANIPULAT DAMIAN TX SPINAL 1-2 REGIONS THERAPEUT 43562 [place] IC PX 1/> 6 AREAS EACH 15 MIN EXERCISES CHIROPRAC 11670 [place] TIC 6 MANIPULAT DAM[place] SPINAL 1-2 REGIONS APPL 86171 [facility] [place] MODALITY 6 1/> AREAS TRACTION MECHANICA L CHIROPRAC 22917 [place] TIC 6 YANG YANG MANIPULAT DAMIAN TX SPINAL 1-2 REGIONS CHIROPRAC 35161 [place] TIC 5 YANG YANG MANIPULAT DAMIAN TX SPINAL 1-2 REGIONS CHIROPRAC 65086 [place] TIC 5 YANG YANG MANIPULAT DAMIAN TX SPINAL 1-[address] [facility] 5 GRE GRE XM&EVAL COMPRE NEW PT 1/> VST URINLS 66249 A C KILPELA DIP 5 SARATH RODRIGUEZ JEA STICK/TAB PSC LET REAGNT NON-AUTO MICRSCPY BLOOD 02586 A C NATHALIE BRY COUNT 5 SARATH RODRIGUEZ COMPLETE PSC AUTO&AUTO DIFRNTL WBC BILIRUBIN 63167 [facility] DIRECT 5 [place] [address] [facility] THYROID 5 DIAGNOSTI DIAGNOSTI STIMULATI CS CS NG HORMONE TSH COMPREHEN 53766 [facility] SIVE 5 DIAGNOSTI DIAGNOSTI METABOLIC CS CS PANEL CHIROPRA 00393 [facility] WILLIAM TIC 5 YANG YANG MANIPULAT DAMIAN TX SPINAL 1-2 REGIONS CHIROPRAC 44816 [facility] WILLIAM TIC 5 YANG YANG MANIPULAT DAMIAN TX SPINAL 1-2 REGIONS CHIROPRAC 11071 [facility] TIC 5 YANG YANG MANIPULAT DAMIAN TX SPINAL 1-2 REGIONS THERAPEUT 99196 A C FIELD AMB IC 5 SARATH RODRIGUEZ PROPHYLAC PSC TIC/DX INJECTION SUBQ/IM URINLS 49625 A C FIELD AMB DIP 5 SARATH RODRIGUEZ STICK/TAB PSC LET REAGNT NON-AUTO MICRSCPY INJECTION J1885 A C FIELD AMB 5 SARATH RODRIGUEZ KETOROLAC PSC TROMETHAM INE PER 15 MG CHIROPRAC 84657 [facility] WILLIAM TIC 5 YANG YANG MANIPULAT DAMIAN TX SPINAL 1-2 REGIONS CHIROPRAC 80624 [facility] WILLIAM TIC 5 YANG YANG MANIPULAT DAMIAN [place] SPINAL 1-2 REGIONS APPL 46400 [facility] WILLIAM MODALITY 5 YANG YANG 1/> AREAS TRACTION MECHANICA L THERAPEUT 42395 [facility] WILLIAM IC PX 1/> 5 YANG YANG AREAS EACH 15 MIN EXERCISES RADEX 60618 [facility] SPINE 5 MEDICAL AFIA CERVICAL IMAGING 4 OR 5 ASS VIEWS THERAPEUT 57271 A C KILPELA IC 5 SARATH OROZCO PROPHYLAC PSC TIC/DX INJECTION SUBQ/IM INJECTION J1030 A C KILPELA 5 SARATH OROZCO METHYLPRE PSC DNISOLONE ACETATE 40 MG INJ J0702 A Mohini KYLE BETAMETHA 5 SARATH RODRIGUEZ VALERIEGilbert SONE PSC ACETATE & PHOSPHATE 3 MG INJECTION J1885 A Mohini BRAGGPELA 5 SARATH OROZCO KETOROLAC PSC TROMETHAM INE PER 15 MG THERAPEUT 43800 [place] IC PX 1/> 5 YANG YANG AREAS EACH 15 MIN EXERCISES CHIROPRAC 81328 [place] TIC 5 YANG YANG MANIPULAT DAMIAN [place] SPINAL 1-2 REGIONS APPL 17964 [place] MODALITY 5 YANG YANG 1/> AREAS TRACTION MECHANICA L CHIROPRAC 83590 [place] TIC 5 YANG YANG MANIPULAT DAMIAN [place] SPINAL 1-2 REGIONS APPL 39785 [place] MODALITY 5 YANG YANG 1/> AREAS TRACTION MECHANICA L THERAPEUT 34616 [place] IC PX 1/> 5 YANG YANG AREAS EACH 15 MIN EXERCISES THERAPEUT 37278 [facility] [place] IC PX 1/> 5 YANG YANG AREAS EACH 15 MIN EXERCISES CHIROPRAC 60508 [place] TIC 5 YANG YANG MANIPULAT DAMIAN TX SPINAL 1-2 REGIONS APPL 36870 [place] MODALITY 5 YANG YANG 1/> AREAS TRACTION MECHANICA L CHIROPRAC 55359 [place] TIC 5 YANG YANG MANIPULAT DAMIAN TX SPINAL 1-2 REGIONS ECG 36238 A C FIELD AMB ROUTINE 5 SARATH RODRIGUEZ ECG PSC W/LEAST 12 LDS W/I&R THERAPEUT 65903 A C FIELD AMB IC 5 SARATH RODRIGUEZ PROPHYLAC PSC TIC/DX INJECTION SUBQ/IM INJECTION J1885 A C AMB 5 SARATH RODRIGUEZ KETOROLAC PSC TROMETHAM INE PER [address] THORAX 81568 [facility] W/CONTRAS INC INC T MATERIAL CREATININ 33231 [facility] E BLOOD 4 [facility] INC INC LOCM Q9967 [facility] 300-399 4 [facility] MG/ML INC INC IOD[place] [address] [facility] UREA 4 [facility] [place] [address] [facility] ABDOMEN & 4 [facility] PELVIS INC INC W/O CONTRAST MATERIAL ECG 36777 A C KILPELA ROUTINE 4 SARATH RODRIGUEZ JEA ECG PSC W/LEAST 12 LDS W/I&[place] [address] [facility] TROPONIN 4 [facility] QUANTITAT INC INC DAMIAN URINLS 88442 A C KILPELA DIP 4 SARATH RODRIGUEZ JEA STICK/TAB PSC LET REAGNT NON-AUTO MICRSCPY RADIOLOGI 79378 [facility] C EXAM 4 MEDICAL KALPESH CHEST 2 IMAGING VIEWS ASS FRONTAL&L ATERAL SCREENING G0202 [facility] 4 [facility] MAMMOGRAP INC INC HY CHERYL INCL CAD WHEN PERFORMD COMPUTER- 86265 [facility] AIDED 4 [facility] DETECTION INC INC SCREENING MAMMOGRAP HY DUPLEX 57567 [facility] SCAN 4 [facility] EXTRACRAN INC INC IAL ART COMPL BI STUDY Encounters Encounter Start End Date Code Location Performer Type Date OFFICE 61332 [facility]LA OUTSAINT JOSEPH EASTEN 7 7 PHYSICIAN T VISIT S GROUP 25 MINUTES [facility] T [facility] OUTPATIEN INC T OFFICE 56850 [facility] ADELA OUTPATIEN 7 7 PHYSICIAN T VISIT S GROUP 25 MINUTES EMERGENCY 42006 SUS[facility] TILLMAN DEPT 7 7 PHYSICIAN VISIT S, PLLC HIGH SEVERITY& THREAT FUNCJ EMERGENCY 68449 [facility] 7 7 [facility] DEPARTMEN INC T VISIT HIGH/URGE NT SEVERITY [facility] OUTPATIEN INC T OFFICE 47272 [facility] YMYUE OUTPATIEN 7 7 PHYSICIAN T VISIT S GROUP 15 MINUTES EMERGENCY 02179 SUSAN TILLMAN 6 6 PHYSICIAN MARY LOU DEPARTMEN S, PLLC T VISIT MODERATE SEVERITY OFFICE 30138 [facility] OUTPATIEN 6 6 T NEW 10 MINUTES EMERGENCY 63883 [facility] 6 6 N DEPARTMEN COMMUNTIY T VISIT HOSPFORMERLY [facility] MODERATE SEVERITY EMERGENCY 59649 [facility] 6 6 [facility] T VISIT SERV HIGH/URGE NT SEVERITY HOSPITAL [facility] 6 6 N [facility] OUTPATIEN INC T OFFICE 28931 [facility] MERCEDES MERLOS OUTPATIEN 6 6 PHYSICIAN T NEW 45 S GROUP MINUTES OFFICE 50312 A C [facility] OUTPATIEN 5 5 SARATH OROZCO T VISIT PSC 15 MINUTES OFFICE 26466 A C NATHALIE BRY OUTPATIEN 5 5 SARATH RODRIGUEZ T VISIT PSC 25 MINUTES OFFICE 51535 A C NATHALIE BRY OUTPATIEN 5 5 SARATH RODRIGUEZ T VISIT PSC 15 MINUTES OFFICE 95245 A C FIELD AMB OUTPATIEN 5 5 SARATH RODRIGUEZ T VISIT PSC 15 MINUTES [facility] 5 5 [facility] OUTPATIEN INC T OFFICE 93240 A C [facility] OUTPATIEN 5 5 SARATH OROZCO T VISIT PSC 15 MINUTES OFFICE 26319 [facility] OUTPATIEN 5 5 YANG SORIA T NEW 30 MINUTES OFFICE 25627 A C FIELD AMB OUTPATIEN 5 5 SARATH RODRIGUEZ T VISIT PSC 15 MINUTES OFFICE 42277 A C FIELD AMB OUTPATIEN 5 5 SARATH RODRIGUEZ T VISIT [facility] 15 MINUTES [facility] 4 [facility] 4 4 [facility] T OFFICE 78571 A C KILPELA OUTPATIEN 4 4 SARATH Cuellar VISIT [facility] 25 MINUTES [facility] - 4 4 [facility] OUTPATIEN [facility] T OFFICE 89664 A C K[facility] OUTPATIEN 4 4 SARATH Cuellar VISIT [facility] 25 MINUTES OFFICE 14890 K[facility] KILPELA OUTPATIEN 4 4 PAM Cuellar VISIT 15 MINUTES [facility] 4 4 [facility] OUT[facility] T OFFICE 81779 KILPELA KILPELA OUTPATIEN 4 4 PAM Cuellar NEW 45 MINUTES
--- OUTSIDE RECORDS SUMMARY | 2017-07-17 16:38 | External Medical Summary Rpt ---
Author Author , VIN BANUELOS Address Unknown Phone [email or web address] Team Providers Care Nanny Babysitter Name Role Phone A Mohini CLEMENS MD PSC, Gilbert Unavailable Unavailable Mohini CLEMENS MD PSC DUANE POSEY, DUANE Unavailable Unavailable KALPESH BESSON, BESSON Unavailable Unavailable MICHELLE OMAR, MICHELLE Unavailable Unavailable OMAR [facility], Unavailable Unavailable [facility] GOLDIE AFIA, Unavailable Unavailable GOLDIE AFIA GOLDIE AFIA, Unavailable Unavailable GOLDIE AFIA [facility] Unavailable Unavailable [facility], [facility], [facility] Unavailable Unavailable FRYMAN, FRYMAN Unavailable Unavailable LAYNE, LAYNE Unavailable Unavailable LAYNE MARY LOU, LAYNE Unavailable Unavailable MARY LOU [facility] Un[facility], [facility] PAULINO RHO, PAULINO Unavailable Unavailable RHO [facility] Unavailable Unavailable [facility], [facility] Unavailable Unavailable H[facility]PITAL P, [facility] JACOBSON, JACOBSON Unavailable Unavailable JACOBSON, JACOBSON Unavailable Unavailable [facility], Unavailable Unavailable [facility] KEDING, KEDING Unavailable Unavailable KEDING, KEDING Unavailable Unavailable KEDING YANG, KEDING Unavailable Unavailable YANG [facility]EDING YANG, KEDING Unavailable Unavailable YANG [facility] Un[facility], [facility] KILPELA JEA, KILPELA Unavailable [...] 2016 Problems Code Diagnosis DOS Provider Status [id number] MIGRAINE 06-06-2017 [facility] W/AURA NOT INTRACT W/STATUS MIGRAINOSUS M5412 RADICULOPAT 06-06-2017 [facility] HY CERVICAL REGION M542 CERVICALGIA 06-06-2017 [facility] I10 ESSENTIAL 05-27-2017 [facility] PRIMARY PHYSICIANS HYPERTENSIO GROUP N N390 URINARY 05-27-2017 [facility] TRACT PHYSICIANS INFECTION GROUP SITE NOT SPECIFIED N939 ABNORMAL 05-27-2017 [facility] UTERINE & PHYSICIANS VAGINAL GROUP BLEEDING UNSPECIFIED R5383 OTHER 05-27-2017 [facility] FATIGUE PHYSICIANS GROUP R739 HYPERGLYCEM 05-27-2017 [facility] IA PHYSICIANS UNSPECIFIED GROUP Z1231 ENCOUNTER 03-13-2017 [facility] MAMMO MALIG INC NEOPLASM BREAST M4802 SPINAL 02-28-2017 [facility] STENOSIS PHYSICIANS CERVICAL GROUP REGION I2510 [facility] [place] 02-06-2017 [facility] ARTERY W/O [facility] P ANGINA PECTORIS E47374 PAIN IN 02-06-2017 [facility] RIGHT ARM PHYSICIANS, PLLC X10743 PAIN IN 02-06-2017 [facility] LEFT ARM PHYSICIANS GROUP Q68499 PAIN IN ARM 02-06-2017 [facility]NSPEC[facility]ING ASS R0789 OTHER CHEST 02-06-2017 [facility] PAIN PHYSICIANS GROUP R079 CHEST PAIN 02-06-2017 [facility] Z720 TOBACCO USE 02-06-2017 [facility] P H1033 UNSPECIFIED 10-25-2016 [facility] ACUTE PHYSICIANS, CONJUNCTIVI PLLC TIS BILATERAL H109 UNSPECIFIED 10-25-2016 [facility] PHYSICIANS, CONJUNCTIVI PLLC TIS H1013 ACUTE 10-23-2016 [facility] CONJUNCTIVI TIS BILATERAL E28681 PAIN IN 09-17-2016 [facility] SHOULDER S43847 OTHER 09-17-2016 [facility] SPECIFIED COMMUNTIY JOINT HOSPITA DISORDERS RIGHT SHOULDER M4302 SPONDYLOLYS 09-17-2016 [facility] CERVICAL N EMERGENCY REGION SERV M5030 OTH 09-17-2016 [facility] CERVICAL COMMUNTIY DISC HOSPITA DEGENERATIO N UNS CERV REGION M64953 UNS ROT 09-17-2016 [facility] CUFF COMMUNTIY TEAR/RUPT HOSPITA RT SHLDR NOT SPEC TRAUMAT M7521 BICIPITAL 09-17-2016 [facility] TENDINITIS N EMERGENCY RIGHT SERV SHOULDER M7551 BURSITIS OF 09-17-2016 [facility] RIGHT N EMERGENCY SHOULDER SERV M7591 SHOULDER 09-17-2016 [facility] LESION N EMERGENCY UNSPECIFIED SERV RIGHT SHOULDER B13025 MIGRAINE 06-13-2016 [facility] UNS NOT PHYSICIANS INTRACT W/O GROUP STATUS MIGRAINOSUS J449 CHRONIC 06-13-2016 [facility] OBSTRUCTIVE PHYSICIANS PULMONARY GROUP DISEASE UNS K047 PERIAPICAL 06-13-2016 [facility] ABSCESS PHYSICIANS WITHOUT GROUP SINUS T21270 CELLULITIS 06-13-2016 [facility] OF HEAD ANY PHYSICIANS PART GROUP EXCEPT FACE R161 SPLENOMEGAL 06-13-2016 [facility] Y NOT PHYSICIANS ELSEWHERE GROUP CLASSIFIED Z0000 ENCOUNTER 06-13-2016 [facility] GEN ADULT PHYSICIANS MED EXAM GROUP [...] DIGESTIVE SYSTEM 7231 CERVICALGIA 08-02-2015 [facility] YANG 56337 SPASM OF 08-02-2015 [facility] SORIA MUSCLE 99732 MIGRAINE 05-17-2015 A Mohini CLEMENS UNSP W/O PSC INTRACT W/O STATUS MIGRAINOSUS 24868 HEMIPLEGIC 04-19-2015 A Mohini CLEMENS MIGRAINE PSC W/INTRACTAB LE W/O SM 7881 DYSURIA 04-19-2015 A Mohini CLEMENS MD PSC 83356 CHRONIC 02-18-2015 A Mohini CLEMENS MIGRAINE PSC W/O AURA W/O INTRACTABLE W/O SM 496 CHRONIC 02-18-2015 A Mohini CLEMENS AIRWAY PSC OBSTRUCTION NEC 44110 OTHER CHEST 02-17-2015 A Mohini CLEMENS PAIN PSC 66352 SHORTNESS 09-10-2014 [facility] 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 IM[facility] 5718 OTHER 08-20-2014 [facility] CHRONIC [facility]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 67237 ABDOMINAL 08-20-2014 [facility] PAIN, [facility] UNSPECIFIED INC SITE 75473 ABDOMINAL 08-20-2014 [facility] EPIGASTRIC IMAGING ASS 54916 CHEST PAIN 08-12-2014 A Mohini CLEMENS UNSPECIFIED [facility] V7612 OTHER 08-12-2014 [facility] SCREENING [facility] MAMMOGRAM INC 7245 UNSPECIFIED 08-11-2014 A Mohini CLEMENS BACKACHE PSC 4011 ESSENTIAL 12-30-2013 KILPEKIRA PADILLAA HYPERTENSIO N, BENIGN 7821 RASH AND 12-30-2013 KILPELA JEA OTHER NONSPECIFIC SKIN ERUPTION 4471 STRICTURE 12-25-2013 [facility] OF ARTERY AFIA 57338 OTHER 12-25-2013 [facility] SYMPTOMS [facility] INVOLVING [...] 20 20 DE IL 80 17 17 CA -H [address] AR AE Z MA L 10 CY S -1 2. OF 5 MG CY NT TA HI B AN A Procedures Procedure DOS Code Location Performer Comment [facility] 83288 STEWART WILLIAM TIC 7 MANIPULAT DAM[place] SPINAL 1-2 REGIONS APPL 64674 STEW[facility] WILLIAM MODALITY 7 1/> AREAS TRACTION MECHANICA L CHIROPRAC 81253 [facility] TIC 7 MANIPULAT [place] SPINAL 1-2 REGIONS APPL 46906 STEWART [place] MODALITY 7 1/> AREAS TRACTION MECHANICA L SCREENING 13323 [facility] 7 [facility] MAMMOGRAP INC INC HY BI 2-VIEW BREAST INC CAD RHEUMATOI 58193 [facility] D FACTOR 7 [facility] QUANTITAT INC INC DAMIAN COMPREHEN 89654 [facility] SIVE 7 [facility] [place] [address] [facility] FOLIC 7 [facility] [place] [address] [facility] FREE 7 [facility] [place] [address] [facility] THYROID 7 [facility] STIMULATI INC INC NG HORMONE TSH THERAPEUT 62127 [facility] IC 7 PHYSICIAN PHYSICIAN PROPHYLAC S GROUP S GROUP TIC/DX INJECTION SUBQ/IM CYANOCOBA 21076 [facility] IGNACIA 7 [facility] VITAMIN INC INC B-12 CHIROPRAC 45891 [facility] WILLIAM TIC 7 MANIPULAT [place] SPINAL 1-2 REGIONS APPL 78943 [facility] WILLIAM MODALITY 7 1/> [place] [address] [facility] TROPONIN 7 [facility] QUANTITAT INC INC DAMIAN BLOOD 75294 [facility] COUNT 7 [facility] COMPLETE INC INC AUTO&AUTO DIFRNTL WBC THERAPEUT 71803 [facility] IC 7 [facility] INJECTION INC INC IV PUSH EACH NEW DRUG ECG 93019 [facility] IGNACIO ROUTINE 7 [facility] W/LEAST P 12 LDS I&R ONLY RADIOLOGI 73998 [facility] C 7 [facility] EXAMINATI INC INC ON CHEST SINGLE VIEW FRONTAL COMPREHEN 85879 [facility] SIVE 7 [facility] METABOLIC INC INC PANEL CREATINE 56547 [facility] KINASE MB 7 [facility] FRACTION INC INC ONLY CREATINE 56458 [facility] BHAT KINASE 7 [facility] TOTAL INC THER 01468 [facility] PROPH/DX 7 [facility] NJX IV INC INC PUSH SINGLE/1S T SBST/DRUG ECG 08650 [facility] ROUTINE 7 [facility] ECG INC INC W/LEAST 12 LDS TRCG ONLY W/O I&R CHIROPRAC 65648 [facility] TIC 7 MANIPULAT [place] SPINAL 1-2 REGIONS APPL 92681 [facility] [place] MODALITY 7 1/> AREAS TRACTION MECHANICA L CHIROPRAC 84307 [facility] TIC 7 MANIPULAT [place] SPINAL 1-2 REGIONS CHIROPRAC 12664 [facility] [place] TIC 7 MANIPULAT [place] SPINAL 1-2 REGIONS CHIROPRAC 49932 [facility] [place] TIC 6 YANG YANG MANIPULAT DAM[place] SPINAL 1-2 REGIONS CHIROPRA 28579 [facility] TIC 6 YANG YANG MANIPULAT [place] SPINAL 1-2 REGIONS CHIROPRAC 44785 [facility] [place] TIC 6 YANG YANG MANIPULAT [place] SPINAL 1-2 REGIONS THERAPEUT 76930 [facility] IC 6 N N PROPHYLAC COMMUNTIY COMMUNTIY TIC/DX HOSPITA HOSPITA INJECTION SUBQ/IM RADEX 97745 [facility] SPINE 6 N N CERVICAL COMMUNTIY COMMUNTIY 2 OR 3 HOSPITA HOSPITA VIEWS INJECTION J1885 [facility] 6 N N KETOROLAC COMMUNTIY COMMUNTIY HOSPITA HOSPITA TROMETHAM INE PER 15 MG INJECTION J2360 [facility] 6 N N ORPHENADR COMMUNTIY COMMUNTIY INE HOSPITA HOSPITA CITRATE UP TO 60 MG RADEX 66086 [facility] [place] [facility] SPINE 6 RADIOLOGY RHO CERVICAL 4 OR 5 VIEWS RADEX 95348 [facility] [place] [facility] SHOULDER 6 RADIOLOGY RHO COMPLETE MINIMUM 2 VIEWS CHIROPRA 30071 [facility] CHAVESINO TIC 6 YANG BRY MANIPULAT DAM[place] SPINAL 1-2 REGIONS CHIROPRA 15281 [facility] VALEROILL TIC 6 YANG OMAR MANIPULAT [place] SPINAL 1-2 REGIONS CHIROPRAC 99263 [facility] MCKEONDING TIC 6 YANG YANG MANIPULAT [place] SPINAL 1-2 REGIONS IMMUNOASS 22179 [facility] AY NFCT 6 [facility] AGT ANTB INC INC QUAL/SEMI CONNER 1 STEP COMPREHEN 64192 [facility] SIVE 6 [facility] [place] [address] [facility] FREE 6 [facility] [place] [address] [facility] THYROID 6 [facility] STIMULATI INC INC NG HORMONE TSH ANTIBODY 63134 [facility] JS-B 6 [facility] ARR EB INC INC VIRUS NUCLEAR AG EBNA COLLECTIO 69798 [facility] STONE GAURANG N VENOUS 6 PHYSICIAN BLOOD S GROUP VENIPUNCT URE ANTIBODY 13599 [facility] JS-B 6 [facility] ARR EB INC INC VIRUS VIRAL CAPSID VCA BLOOD 44154 [facility] COUNT 6 [facility] COMPLETE INC INC AUTO&AUTO DIFRNTL WBC CHIROPRAC 20997 [facility] [place] TIC 6 YANG YANG MANIPULAT [place] SPINAL 1-2 REGIONS CHIROPRAC 35700 [facility] TIC 6 YANG YANG MANIPULAT [place] SPINAL 1-2 REGIONS THERAPEUT 44896 [facility] [place] IC PX 1/> 6 AREAS EACH 15 MIN EXERCISES CHIROPRAC 92237 [place] TIC 6 MANIPULAT [place] SPINAL 1-2 REGIONS APPL 30467 [facility] [place] MODALITY 6 1/> AREAS TRACTION MECHANICA L CHIROPRAC 94581 [facility] [place] TIC 6 YANG YANG MANIPULAT DAM[place] SPINAL 1-2 REGIONS CHIROPRAC 18035 [facility] [place] TIC 6 YANG YANG MANIPULAT DAM[place] SPINAL 1-2 REGIONS THERAPEUT 38729 [place] [place] IC PX 1/> 6 AREAS EACH 15 MIN EXERCISES CHIROPRAC 09766 [facility] [place] TIC 6 MANIPULAT [place] SPINAL 1-2 REGIONS APPL 01002 [facility] [place] MODALITY 6 1/> AREAS TRACTION MECHANICA L CHIROPRAC 70211 [facility] [place] TIC 6 YANG YANG MANIPULAT DAMIAN [place] SPINAL 1-2 REGIONS CHIROPRAC 22365 [facility] [place] TIC 5 YANG YANG MANIPULAT DAMIAN [place] SPINAL 1-2 REGIONS CHIROPRAC 83312 [facility] [place] TIC 5 YANG YANG MANIPULAT DAMIAN [place] SPINAL 1-2 REGIONS OPHTH 09731 [facility] 5 GRE GRE XM&EVAL COMPRE NEW PT 1/> VST URINLS 12076 A C KILPELA DIP 5 SARATH RODRIGUEZ JEA STICK/TAB PSC LET REAGNT NON-AUTO MICRSCPY BLOOD 99989 A C NATHALIE BRY COUNT 5 SARATH RODRIGUEZ COMPLETE PSC AUTO&AUTO DIFRNTL WBC BILIRUBIN 85041 [facility] DIRECT 5 [place] [address] [facility] THYROID 5 DIAGNOSTI DIAGNOSTI STIMULATI CS CS NG HORMONE TSH COMPREHEN 57634 [facility] SIVE 5 DIAGNOSTI DIAGNOSTI METABOLIC CS CS PANEL CHIROPRA 65255 STEWART WILLIAM TIC 5 YANG YANG MANIPULAT DAMIAN [place] SPINAL 1-2 REGIONS CHIROPRAC 31847 [facility] TIC 5 YANG YANG MANIPULAT DAMIAN TX SPINAL 1-2 REGIONS CHIROPRAC 76138 [facility]IAM TIC 5 YANG YANG MANIPULAT DAMIAN TX SPINAL 1-2 REGIONS THERAPEUT 05167 A C FIELD AMB IC 5 SARATH RODRIGUEZ PROPHYLAC PSC TIC/DX INJECTION SUBQ/IM URINLS 48656 A C FIELD AMB DIP 5 SARATH RODRIGUEZ STICK/TAB PSC LET REAGNT NON-AUTO MICRSCPY INJECTION J1885 A C FIELD AMB 5 SARATH RODRIGUEZ KETOROLAC PSC TROMETHAM INE PER 15 MG CHIROPRAC 29643 [facility] WILLIAM TIC 5 YANG YANG MANIPULAT DAMIAN [place] SPINAL 1-2 REGIONS CHIROPRAC 14811 [facility] WILLIAM TIC 5 YANG YANG MANIPULAT DAM[place] SPINAL 1-2 REGIONS APPL 95862 [facility] WILLIAM MODALITY 5 YANG YANG 1/> AREAS TRACTION MECHANICA L THERAPEUT 69986 [facility] WILLIAM IC PX 1/> 5 YANG YANG AREAS EACH 15 MIN EXERCISES RADEX 91732 [facility] SPINE 5 MEDICAL AFIA CERVICAL IMAGING 4 OR 5 ASS VIEWS THERAPEUT 42584 A C KILPELA IC 5 SARATH OROZCO PROPHYLAC PSC TIC/DX INJECTION SUBQ/IM INJECTION J1030 A C KILPELA 5 SARATH OROZCO METHYLPRE PSC DNISOLONE ACETATE 40 MG INJ J0702 A Mohini KYLE BETAMETHA 5 SARATH RODRIGUEZ VALERIEGilbert SONE PSC ACETATE & PHOSPHATE 3 MG INJECTION J1885 A Mohini BRAGGPELA 5 SARATH OROZCO KETOROLAC PSC TROMETHAM INE PER 15 MG THERAPEUT 20345 [facility] [place] IC PX 1/> 5 YANG YANG AREAS EACH 15 MIN EXERCISES CHIROPRAC 66028 [facility] TIC 5 YANG YANG MANIPULAT DAMIAN [place] SPINAL 1-2 REGIONS APPL 33942 [place] MODALITY 5 YANG YANG 1/> AREAS TRACTION MECHANICA L CHIROPRAC 77021 [place] TIC 5 YANG YANG MANIPULAT DAMIAN [place] SPINAL 1-2 REGIONS APPL 38722 [facility] [place] MODALITY 5 YANG YANG 1/> AREAS TRACTION MECHANICA L THERAPEUT 34796 [facility] [place] IC PX 1/> 5 YANG YANG AREAS EACH 15 MIN EXERCISES THERAPEUT 70031 [facility] [place] IC PX 1/> 5 YANG YANG AREAS EACH 15 MIN EXERCISES CHIROPRAC 99993 [facility] [place] TIC 5 YANG YANG MANIPULAT DAMIAN [place] SPINAL 1-2 REGIONS APPL 22777 [facility] [place] MODALITY 5 YANG YANG 1/> AREAS TRACTION MECHANICA L CHIROPRAC 28228 [facility] [place] TIC 5 YANG YANG MANIPULAT DAMIAN TX SPINAL 1-2 REGIONS ECG 02799 A C FIELD AMB ROUTINE 5 SARATH RODRIGUEZ ECG PSC W/LEAST 12 LDS W/I&R THERAPEUT 11120 A C FIELD AMB IC 5 SARATH RODRIGUEZ PROPHYLAC PSC TIC/DX INJECTION SUBQ/IM INJECTION J1885 A C AMB 5 SARATH RODRIGUEZ KETOROLAC PSC TROMETHAM INE PER [address] THORAX 05357 [facility] W/CONTRAS INC INC T MATERIAL CREATININ 48389 [facility] E BLOOD 4 [facility] INC INC LOCM Q9967 [facility] 300-399 4 [facility] MG/ML INC INC I[place] [address] [facility] UREA 4 [facility] [place] [address] [facility] ABDOMEN & 4 [facility] PELVIS INC INC W/O CONTRAST MATERIAL ECG 60426 A C KILPELA ROUTINE 4 SARATH RODRIGUEZ JEA ECG PSC W/LEAST 12 LDS W/I&[place] [address] [facility] TROPONIN 4 [facility] QUANTITAT INC INC DAMIAN URINLS 23350 A C KILPELA DIP 4 SARATH RODRIGUEZ JEA STICK/TAB PSC LET REAGNT NON-AUTO MICRSCPY RADIOLOGI 53330 [facility] C EXAM 4 MEDICAL KALPESH CHEST 2 IMAGING VIEWS ASS FRONTAL&L ATERAL SCREENING G0202 [facility] 4 [facility] MAMMOGRAP INC INC HY CHERYL INCL CAD WHEN PERFORMD COMPUTER- 25927 [facility] AIDED 4 [facility] DETECTION INC INC SCREENING MAMMOGRAP HY DUPLEX 38173 [facility] SCAN 4 [facility] EXTRACRAN INC INC IAL ART COMPL BI STUDY Encounters Encounter Start End Date Code Location Performer Type Date OFFICE 62406 [facility] PH[facility] T VISIT S GROUP 25 [facility]UTES [facility] OUTPAT[facility] INC T [facility] OUTPATIEN INC T OFFICE 12122 [facility] ADELA OUTPATIEN 7 7 PHYSICIAN T VISIT S GROUP 25 MINUTES EMERGENCY 78897 SUSAN TILLMAN DEPT 7 7 PHYSICIAN VISIT S, PLLC HIGH SEVERITY& THREAT FUNCJ EMERGENCY 44844 [facility] 7 7 [facility] DEPARTMEN INC T VISIT HIGH/URGE NT SEVERITY [facility] 7 7 [facility] OUTPATIEN INC T OFFICE 98039 [facility] YMYUE OUTPATIEN 7 7 PHYSICIAN T VISIT S GROUP 15 MINUTES EMERGENCY 95384 SUSAN TILLMAN 6 6 PHYSICIAN MARY LOU DEPARTMEN S, PLLC T VISIT MODERATE SEVERITY OFFICE 85492 [facility]ON OUTPATIEN 6 6 T NEW 10 MINUTES EMERGENCY 22851 [facility] 6 6 N DEPARTMEN COMMUNTIY T [facility] SEVER[facility] EMERGENCY 15727 [facility] 6 6 [facility] T VISIT SERV HIGH/URGE NT SEVERITY [facility] 6 6 N [facility] OUTPATIEN INC T OFFICE 76138 [facility] MERCEDES MERLOS OUTPATIEN 6 6 PHYSICIAN T NEW 45 S GROUP MINUTES OFFICE 67213 A C [facility] OUTPATIEN 5 5 SARATH OROZCO T VISIT PSC 15 MINUTES OFFICE 38795 A C NATHALIE BRY OUTPATIEN 5 5 SRAATH RODRIGUEZ T VISIT PSC 25 MINUTES OFFICE 79346 A C NATHALIE BRY OUTPATIEN 5 5 SARATH RODRIGUEZ T VISIT PSC 15 MINUTES OFFICE 23991 A C FIELD AMB OUTPATIEN 5 5 SARATH RODRIGUEZ T VISIT PSC 15 MINUTES [facility] 5 5 [facility] OUTPATIEN INC T OFFICE 90714 A C KILPELA OUTPATIEN 5 5 SARATH OROZCO T VISIT PSC 15 MINUTES OFFICE 71571 [facility] OUTPATIEN 5 5 YANG SORIA T NEW 30 MINUTES OFFICE 80324 A C FIELD AMB OUTPATIEN 5 5 SARATH RODRIGUEZ T VISIT PSC 15 MINUTES OFFICE 72185 A C FIELD AMB OUTPATIEN 5 5 SARATH RODRIGUEZ T VISIT [facility] 15 MINUTES [facility] 4 4 [facility] 4 [facility] T OFFICE 83172 A C KILPELA OUTPATIEN 4 4 SARATH Cuellar VISIT [facility] 25 MINUTES [facility] - 4 [facility] OUT[facility] T OFFICE 94902 A C KILPELA OUTPATIEN 4 4 SARATH Cuellar VISIT [facility] 25 MINUTES OFFICE 23740 K[facility] KILPELA OUTPATIEN 4 4 PAM Cuellar VISIT 15 MINUTES [facility] 4 4 [facility] T OFFICE 11396 KILPELA KILPELA OUTPATIEN 4 4 PAM Cuellar NEW 45 MINUTES
--- OUTSIDE RECORDS SUMMARY | 2017-07-17 16:39 | External Medical Summary Rpt ---
Demographics Preferred Language Armenian Marital Status Unknown Catholic Affiliation Unknown Race Unknown Ethnic Group Unknown Author Author VIN Address Unknown Phone Immunization No patient found.
--- OUTSIDE RECORDS SUMMARY | 2017-07-17 16:39 | External Medical Summary Rpt ---
Demographics Preferred Language Azeri Marital Status Unknown Evangelical Affiliation Unknown Race Unknown Ethnic Group Unknown Author Author VIN Address Unknown Phone Immunization No patient found.
--- OUTSIDE RECORDS SUMMARY | 2017-07-17 16:40 | External Medical Summary Rpt ---
Author Author SHELBYTAJ Bond, [employer] Organization [employer] Address Unknown Phone Unavailable Results CBC W Auto Differential panel in Blood Observa Value Referen Units Interpr Notes Date tion ce etation Range Basophils 0 - 0.2 K/MM3 Normal No Jul 17 informati 2016 2:55 [#/volume on in PM ] in source Blood by data Automated count Basophils 0.1 - 2.0 % Normal No Jul 17 informati 2016 2:55 leukocyte on in PM s in source Blood by data Automated count Eosinophi 0.0 - 0.4 K/mm3 High No Jul 17 ls informati 2016 2:55 [#/volume on in PM ] in source Blood by data Automated count Eosinophi 0.1 - % Normal No Jul 17 ls/100 12.0 informati 2016 2:55 leukocyte on in PM s in source Blood by data Automated count Granulocy 1.8 - 7.8 K/mm3 Normal No Jul 17 suri informati 2017 2:55 [#/volume on in PM ] in source Blood by data Automated count Granulocy 37.0 - % Normal No Jul 17 suri/100 80.0 informati 2016 2:55 leukocyte on in PM s in source Blood by data Automated count Hematocri 37.0 - % Normal No Jul 17 t [Volume 47.0 ati 2016 2:55 on in PM Fraction] source of Blood data Hemoglobi 12.2 - g/dL Normal No Jul 17 n 16.2 informati 2017 2:55 [Mass/vol on in PM ume] in source Blood data Lymphocyt 0.7 - 4.5 K/mm3 Normal No Jul 17 es informati 2016 2:55 [#/volume on in PM ] in source Unspecifi data ed specimen by Automated count Lymphocyt 10 - 50.0 % Normal No Jul 17 es informati 2016 2:55 [#/volume on in PM ] in source Unspecifi data ed specimen by Automated count Erythrocy 27 - 31.2 pg High No Jul 17 te mean informati 2016 2:55 corpuscul on in PM ar source hemoglobi data n [Entitic mass] Erythrocy 31.8 - g/dl Normal No Jul 17 te mean 35.4 informati 2016 2:55 corpuscul on in PM ar source hemoglobi data n concentra tion [Mass/vol ume] by Automated count Erythrocy 82.2 - fl Normal No Jul 17 te mean 97.8 informati 2016 2:55 corpuscul on in PM ar volume source [Entitic data volume] by Automated count Monocytes 0.1 - 1.0 K/mm3 Normal No Jul 17 informati 2016 2:55 [#/volume on in PM ] in source Blood by data Automated count Monocytes 1.7 - 9.3 % Normal No Jul 17 /100 informati 2017 2:55 leukocyte on in PM s in source Blood by data Automated count Platelet 7.4 - fl Normal No Jul 17 mean 10.4 informati 2016 2:55 volume on in PM [Entitic source volume] data in Blood by Automated count Platelets 142 - 424 K/mm3 Normal No Jul 17 informati 2016 2:55 [#/volume on in PM ] in source Blood data Erythrocy 4.2 - 5.4 M/mm3 Normal No Jul 17 suri informati 2017 2:55 [#/volume on in PM ] in source Amniotic data fluid Erythrocy 11.5 - % Normal No Jul 17 te 17.5 informati 2016 2:55 distribut on in PM ion width source [Entitic data volume] by Automated count Leukocyte 4.8 - K/MM3 Normal No Jul 17 s 10.8 informati 2016 2:55 [#/volume on in PM ] in source Blood data Basic metabolic panel in Blood Observa Value [...] - 5.1 mmoL/L Normal No Jun 28 inform2016 4:00 [Moles/vo on in AM lume] in source Serum or data Plasma Sodium 136 - 145 mmoL/L Normal No Jun 28 [Moles/vo informati 2016 4:00 lume] in on in AM Serum or source Plasma data CBC W Auto Differential panel in Blood Observa Value Referen Units Interpr Notes Date tion ce etation Range Basophils 0 - 0.2 K/MM3 Normal No Jun 28 inform2016 4:00 [#/volume on in AM ] in source Blood by data Automated count Basophils 0.1 - 2.0 % Normal No Jun 28 informati 2016 4:00 leukocyte on in AM [...] % Normal No Jun 28 /100 informati 2017 4:00 leukocyte on in AM s in source Blood by data Automated count Platelet 7.4 - fl Normal No Jun 28 mean 10.4 informati 2017 4:00 volume on in AM [Entitic source volume] data in Blood by Automated count Platelets 142 - 424 K/mm3 Normal No Jun 28 informati 2016 4:00 [#/volume on in AM ] in source Blood data Erythrocy 4.2 - 5.4 M/mm3 Normal No Jun 28 suri informati 2017 4:00 [#/volume on in AM ] in [...] No Normal No Jun 27 ol in inform informati 2016 7:55 VLDL on in on [...] - 2.0 % Normal No Jun 27 / informati 2016 7:30 leukocyte on in PM [...] K/mm3 Normal No Jun 27 suri informati 2017 7:30 [#/volume on in PM ] in source Blood by data Automated count Granulocy 37.0 - % Normal No Jun 27 suri/100 80.0 informati 2017 7:30 leukocyte on in PM s in source Blood by data Automated count Hematocri 37.0 - % Normal No Jun 27 t [Volume 47.0 informati 2016 7:30 on in PM Fraction] source of Blood data Hemoglobi 12.2 - g/dL Normal No Jun 27 n 16.2 informati 2017 7:30 [Mass/vol on in PM ume] in [...] - 1.0 K/mm3 Normal No Jun 27 informati 2016 7:30 [#/volume on in PM ] in source Blood by data Automated count Monocytes 1.7 - 9.3 % Normal No Jun 27 / informati 2017 7:30 leukocyte on in PM s in source Blood by data Automated count Platelet 7.4 - fl Low No Jun 27 mean 10.4 informati 2016 7:30 volume on in PM [Entitic source volume] data in Blood by Automated count Platelets 142 - 424 K/mm3 Normal No Jun 27 informati 2016 7:30 [...] 116 U/L High No May 27 phosphata inform2016 se on in 11:45 AM [Enzymati source [...] 107 mmoL/L Normal No May 27 [Moles/vo inform2016 lume] in on in 11:45 AM Serum [...] 3.5 - 5.1 mmoL/L Normal No May 272016 [Moles/vo on in 11:45 AM lume] in source Serum or data Plasma Sodium 136 - 145 mmoL/L Normal No May 27 [Moles/vo informati 2016 lume] in on in 11:45 AM Serum or source Plasma data Aspartate 15 - 37 U/L Normal No May 27 inform2016 aminotran on in 11:45 AM sferase source [Enzymati data c activity/ volume] in Serum or Plasma Alanine 12 - 78 U/L Normal No May 27 aminotran inform2016 sferase on in 11:45 AM [Enzymati source [...] Referen Units Interpr Notes ti etation Range Thyrotrop 0.358 - uIU/ml No May 27 in 3.740 informati inform2016 [Units/vo on in on in 11:45 AM lume] in source source Serum or data data Plasma Hemoglobin A1c in Blood Observa Value Referen Units Interpr Notes ti ce etation Range Hemoglo 5.3 0.0 - % Normal < 6% May 27 bin A1c 7.0 NON-HUMBERTO 2017 in [facility] 11:45 Blood LEVEL< AM 7% CONTROL LED DIABETI C LEVEL> 8% POORLY CONTROL LED DIABETI C LEVEL CBC W Auto Differential panel in Blood Observa Value Referen Units Interpr Notes Date ti ce etation Range Basophils 0 - 0.2 K/MM3 Normal No May 27 inform2016 [#/volume on in 11:45 AM ] in source Blood by data Automated count Basophils 0.1 - 2.0 % Normal No May 27 / inform2016 leukocyte on in 11:45 AM s in source Blood by data Automated count Eosinophi 0.0 - 0.4 K/mm3 High No May 27 ls informati 2016 [#/volume on in 11:45 AM ] in source Blood by data Automated count Eosinophi 0.1 - % Normal No May 27 ls/100 12.0 informati 2016 leukocyte on in 11:45 AM s in source Blood by data Automated count Granulocy 1.8 - 7.8 K/mm3 Normal No May 27 suri inform2016 [#/volume on in 11:45 AM ] in source Blood by data Automated count Granulocy 37.0 - % Normal No May 27 suri/100 80.0 informati 2016 leukocyte on in 11:45 AM s in source Blood by data Automated count Hematocri 37.0 - % Normal No May 27 t [Volume 47.0 informati 2016 on in 11:45 AM Fraction] source of Blood data Hemoglobi 12.2 - g/dL Normal No May 27 n 16.2 informati 2016 [Mass/vol on in 11:45 AM ume] in source Blood data Lymphocyt 0.7 - 4.5 K/mm3 Normal No May 27 es inform2016 [#/volume on in 11:45 AM ] in source Unspecifi data ed specimen by Automated count Lymphocyt 10 - 50.0 % Normal No May 27 es 2016 [#/volume on in 11:45 AM ] in source Unspecifi data ed specimen by Automated count Erythrocy 27 - 31.2 pg High No May 27 te mean inform2016 corpuscul on in 11:45 AM ar source hemoglobi data n [Entitic mass] Erythrocy 31.8 - g/dl Normal No May 27 te mean 35.4 inform2016 corpuscul on in 11:45 AM ar source hemoglobi data n concentra tion [Mass/vol ume] by Automated count Erythrocy 82.2 - fl Normal No May 27 te mean 97.8 inform2016 corpuscul on in 11:45 AM ar volume source [Entitic data volume] by Automated count Monocytes 0.1 - 1.0 K/mm3 Normal No May 27 inform2016 [#/volume on in 11:45 AM ] in source Blood by data Automated count Monocytes 1.7 - 9.3 % Normal No May 27 /100 2016 leukocyte on in 11:45 AM s in source Blood by data Automated count Platelet 7.4 - fl Normal No May 27 mean 10.4 2016 volume on in 11:45 AM [Entitic source volume] data in Blood by Automated count Platelets 142 - 424 K/mm3 Normal No May 27 inform2016 [#/volume on in 11:45 AM ] in source Blood data Erythrocy 4.2 - 5.4 M/mm3 Normal No May 27 suri inform2016 [#/volume on in 11:45 AM ] in source Amniotic data fluid Erythrocy 11.5 - % Normal No May 27 te 17.5 2016 distribut on in 11:45 AM ion width source [Entitic data volume] by Automated count Leukocyte 4.8 - K/MM3 Normal No May 27 s 10.8 inform2016 [#/volume on in 11:45 AM ] in source Blood data
--- OUTSIDE RECORDS SUMMARY | 2017-07-17 16:40 | External Medical Summary Rpt ---
[...] 27 bin A1c 7.0 NON-HUMBERTO 2017 in [facility] 11:45 Blood LEVEL< AM 7% CONTROL [...]
[2017-07-17 17:41] VITALS: BP 165/85
[2017-07-17] MEDS ORDERED: COREG 12.5 MG12.5 MG PO (17:52)
[2017-07-17 18:04] VITALS: BP 175/102
[2017-07-17 19:30] VITALS: BP 149/93
[2017-07-17 19:39] VITALS: BP 195/106
--- NOTE | 2017-07-17 20:47 | RADIOLOGY REPORT PS360 ---
CHEST-PORTABLE HISTORY: WEAKNESS ORDERING PHYSICIAN: Matheus Mercado MD PATIENT AGE: 57 years COMPARISON: 06/27/2017 FINDINGS: There is mild cardiomegaly without failure. No lobar consolidation or collapse is evident. No acute bony anomalies. IMPRESSION: Mild cardiomegaly otherwise negative
[2017-07-17 22:12] VITALS: BP 149/93
[2017-07-18 00:38] VITALS: BP 169/90
[2017-07-18 04:24] VITALS: BP 139/83
[2017-07-18] MEDS ORDERED: LISINOPRIL/HCTZ1 TA3 PO ×2 (07:58→12:34)
[2017-07-18 08:00] VITALS: BP 131/82
[2017-07-18] MEDS ORDERED: ASPIR 8181 MG PO (08:39)
[2017-07-18 09:50] VITALS: BP 131/82
--- NOTE | 2017-07-18 10:53 | CONSULT NOTE ---
Standard Demographics Patient Demo Date of Consultation: 07/18/17 Referring Provider: Ghada Mercado MD Reason for Consultation: chest pain, hypertension PRIMARY DIAGNOSIS: CHEST PAIN Problem list Problem list: 1. Cardiac catheterization, 06/28/2017 A. Mild nonflow limiting coronary artery disease, Normal ejection fraction, Normal left ventricular end-diastolic pressure. 2. Chronic obstructive pulmonary disease with history of continued tobacco use 3. Less than 20 percent carotid stenosis bilaterally by ultrasound 07/2017 4. History of migraine headaches 5. 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 Blood pressure medications have been changed recentlyimprovement per patient. She has developed substernal chest tightness with discomfort in the LEFT arm which is commingled with known neurologic symptoms from degenerative disc disease in the neck. She was unsure of what was causing her symptoms and came in for further evaluation. Overnight blood pressure medication has been adjusted with improvement in her blood pressure and resolution of her chest discomfort. Her troponins have returned normal 3. Electrocardiogram is sinus and unremarkable. Cardiology consulted for evaluation. Past Medical History: General: Hypertension Yes CVA No Seizures No TB No COPD No Asthma No Diabetes No Angina No GA No Hyperlipidemia No Urinary No Cancer No Rheumatic H.D. No Ulcers Yes MRSA No GB Disease No Other MIGRAINE H/A Past Surgical HX: Previous Surgery?Y HYSTERECTOMY INNER EAR Tubal Ligation FIBROID TUMORS FROM UTERUS BLADDER REPAIR Allergies Coded Allergies: codeine (Mild, 07/17/17) Home medications: Reported Medications Aspirin (Aspirin EC 81MG Tab) 81 MG PO DAILY Carvedilol (Coreg 12.5Mg) 12.5 MG PO BID Lisinopril & Hctz (Lisinopril-Hctz 10-12.5 MG Tab) 1 TAB PO DAILY #30 Albuterol Sulfate (Ventolin Hfa) 0.09 MG IH QID PRN BREATHING #18 BUDESONIDE/FORMOTEROL FUMARATE (Symbicort 160-4.5 Mcg Inhaler) 1 PUFF IH BID #10 Current Medications: Current Medications Lisinopril 10 MG 2100 PO Carvedilol 12.5 MG BID PO Aspirin 81 MG DAILY PO Lisinopril/HCTZ 1 TAB DAILY PO Ibuprofen 600 MG Q6HP PRN PO Ibuprofen 0 .STK-MED ONE PO (DC) Carvedilol 0 .STK-MED ONE .ROUTE (DC) Carvedilol 25 MG ONCE ONE PO (DC) Aspirin 0 .STK-MED ONE .ROUTE (DC) Aspirin 324 MG ONCE ONE PO (DC) Sodium Chloride 10 ML PRN PRN IV Immunization HX Ped.Immunizations UTD Yes DT/Tetanus > 10 YRS Pneumonia Unknown TB Test in last year No Family history Family HX Family Hx Insignificant No Diabetes No CAD No Hypertension Yes Hyperlipidemia No Cancer No TB No Social Hx: Smoking HX Tobacco Yes Type Cigarettes Packs/day 1 1/2 - 2 PACKS Are you/the child exposed to second-hand smoke: Yes Alcohol Alcohol: No Hx of Drug Use Drug Use? No Review of systems: Constitutional weakness. Respiratory SOB with excertion. Cardiovascular see HPI, chest pain Gastrointestinal/Abdominal No no symptoms reported Genitourinary No: no symptoms reported. Musculoskeletal back pain, neck pain. Neurological Yes: numbness, parasthesia. Exam: Admission Vital Signs: 1ST Vital Signs Result Date Time Pulse Ox 99 07/17 1449 B/P 157/111 07/17 1449 Temp 98.0 07/17 1449 Pulse 66 07/17 1449 Resp 18 07/17 1449 O2 Delivery ROOM AIR 07/17 1741 Last Vital Signs: Vital Signs Result Date Time Pulse Ox 93 07/18 0950 B/P 131/82 07/18 0950 Temp 98.0 07/18 0950 Pulse 62 07/18 0950 Resp 18 07/18 0950 O2 Delivery ROOM AIR 07/18 0800 Exam General appearance: alert, awake, no acute distress Cardiovascular: regular rate & rhythm, no murmur Respiratory: decreased breath sounds bilaterally with out rales or wheezing. ABD: soft, no tenderness Extremities: moves all, no peripheral edema Neuro: alert, intact, oriented Laboratory data: Laboratory Tests 07/18/17 0030: Creatine Kinase 48, CK-MB (CK-2) Rel Index 1.0, CK and CKMB Interp < 0.5, Troponin I < 0.02 07/17/17 1816: Creatine Kinase 46, CK-MB (CK-2) Rel Index 1.1, CK and CKMB Interp < 0.5, Troponin I < 0.02 07/17/17 1455: Sodium 139, Potassium 4.0, Chloride 106, Carbon Dioxide 26, BUN 11, Creatinine 0.7, Estimated Creat Clear 112, Estimated GFR (MDRD) 86, Glucose 104, Calcium 9.3, Total Bilirubin 0.4, AST 15, ALT 24, Alkaline Phosphatase 89, Creatine Kinase 49, CK-MB (CK-2) Rel Index 1.0, CK and CKMB Interp < 0.5, Troponin I < 0.02, B-Natriuretic Peptide 83, Total Protein 7.2, Albumin 4.0, Globulin 3.2, Albumin/Globulin Ratio 1.3, WBC 6.2, RBC 4.26, Hgb 13.5, Hct 38.8, MCV 91.1, RDW 12.7, Plt Count 206, MPV 7.4, Gran % 55.9, Gran # 3.4, Lymphocytes % 29.7, Monocytes % 5.2, Eosinophils % 8.5, Basophils % 0.7, Lymphocytes # 1.8, Monocytes # 0.3, Eosinophils # 0.5 H, Basophils # 0.0, PUBS MCHC 34.8, MCH 31.7 H Plan: Assessment: 1. Chest discomfort felt secondary to hypertensive disorder. Symptoms have resolved with improvement in blood pressure. Normal troponins 3 without acute electrocardiogram changes. Normal coronary arteries by cardiac cath last month. 2. Continued tobacco use Recommendations: No further cardiac testing needed at this time. Recommend continuing carvedilol 12.5 mg twice a day and increasing lisinopril 10/12.5 mg daily to twice a day also. Patient could be discharged today with follow-up in one week. at 1054
[2017-07-18 11:51] VITALS: BP 149/88
--- NOTE | 2017-07-18 12:31 | Discharge Summary Standard ---
Demographics: Admit date: 07/17/17 Chief complaint: chest pressure PRIMARY DIAGNOSIS: CHEST PAIN Allergies: Coded Allergies: codeine (Mild, 07/17/17) History of present illness: History of present illness: 57-year-old white female with normal coronary arteries by cardiac catheterization last month admitted through the emergency department last evening for hypertension with blood pressure readings in the 200/100 mm Hg range over the last couple of weeks. Blood pressure medications have been changed recentlyimprovement per patient. She has developed substernal chest tightness with discomfort in the LEFT arm which is commingled with known neurologic symptoms from degenerative disc disease in the neck. She was unsure of what was causing her symptoms and came in for further evaluation. Overnight blood pressure medication has been adjusted with improvement in her blood pressure and resolution of her chest discomfort. Her troponins have returned normal 3. Electrocardiogram is sinus and unremarkable. Cardiology consulted for evaluation. Past medical history: Family HX Diabetes No CAD No Hypertension Yes Hyperlipidemia No Cancer No TB No Immunization HX Ped.Immunizations UTD Yes DT/Tetanus > 10 YRS Pneumonia Unknown TB Test in last year No General CAD? Yes Angina: No OR: No Hypertension? Yes Hyperlipidemia? No CHF? No DVT? No PE? No COPD? No Asthma? No Anemia? No GERD? No Gastric ulcers? No GI Bleed? No Hernia? No Thyroid Problems? No Hypothyroidism? No CVA? No Seizures? No Diabetes? No Renal Insuffiency? No UTI? No Stones? No BPH? No GB Disease: No Nephritic Syndrome? No Asplenia? No Hepatitis? No Sickle Cell Disease? No Arthritis? Yes Migraines? Yes Cataracts? No Glaucoma? No MRSA? No HIV? No TB? No Anxiety? Yes Depression? Yes Cancer? No More? No Past Surgical HX Previous Surgery?Y HYSTERECTOMY INNER EAR Tubal Ligation FIBROID TUMORS FROM UTERUS BLADDER REPAIR Current home meds: Reported Medications Aspirin (Aspirin EC 81MG Tab) 81 MG PO DAILY Carvedilol (Coreg 12.5Mg) 12.5 MG PO BID Lisinopril & Hctz (Lisinopril-Hctz 10-12.5 MG Tab) 1 TAB PO DAILY #30 Albuterol Sulfate (Ventolin Hfa) 0.09 MG IH QID PRN BREATHING #18 BUDESONIDE/FORMOTEROL FUMARATE (Symbicort 160-4.5 Mcg Inhaler) 1 PUFF IH BID #10 Social Hx: Smoking HX Tobacco Yes Type Cigarettes Packs/day 1 1/2 - 2 PACKS Are you/the child exposed to second-hand smoke: Yes Alcohol Alcohol: No Hx of Drug Use Drug Use? No Review of systems: Constitutional see HPI, weakness. Respiratory see HPI. Cardiovascular see HPI, chest pain Gastrointestinal/Abdominal no symptoms reported Genitourinary no symptoms reported. Musculoskeletal no symptoms reported. Skin no symptoms reported. Neurological Yes: see HPI, headache, numbness, weakness. Exam: Lab data for last 24 hours: Laboratory Tests 07/18/17 0030: Creatine Kinase 48, CK-MB (CK-2) Rel Index 1.0, CK and CKMB Interp < 0.5, Troponin I < 0.02 07/17/17 1816: Creatine Kinase 46, CK-MB (CK-2) Rel Index 1.1, CK and CKMB Interp < 0.5, Troponin I < 0.02 07/17/17 1455: Sodium 139, Potassium 4.0, Chloride 106, Carbon Dioxide 26, BUN 11, Creatinine 0.7, Estimated Creat Clear 112, Estimated GFR (MDRD) 86, Glucose 104, Calcium 9.3, Total Bilirubin 0.4, AST 15, ALT 24, Alkaline Phosphatase 89, Creatine Kinase 49, CK-MB (CK-2) Rel Index 1.0, CK and CKMB Interp < 0.5, Troponin I < 0.02, B-Natriuretic Peptide 83, Total Protein 7.2, Albumin 4.0, Globulin 3.2, Albumin/Globulin Ratio 1.3, WBC 6.2, RBC 4.26, Hgb 13.5, Hct 38.8, MCV 91.1, RDW 12.7, Plt Count 206, MPV 7.4, Gran % 55.9, Gran # 3.4, Lymphocytes % 29.7, Monocytes % 5.2, Eosinophils % 8.5, Basophils % 0.7, Lymphocytes # 1.8, Monocytes # 0.3, Eosinophils # 0.5 H, Basophils # 0.0, PUBS MCHC 34.8, MCH 31.7 H Admission vital signs: 1ST Vital Signs Result Date Time Pulse Ox 99 07/17 1449 B/P 157/111 07/17 144 Temp 98.0 07/17 1449 Pulse 66 07/17 1449 Resp 18 07/17 1449 O2 Delivery ROOM AIR 07/17 1741 Exam General appearance: normal appearance, alert, awake, no acute distress Eyes: normal exam ENT: normal exam Neck: normal inspection, no carotid bruit, full range of motion Cardiovascular: normal exam, regular rate & rhythm, normal peripheral pulses Respiratory: normal exam, clear to auscultation, good air movement ABD: normal exam, normal bowel sounds, soft Genitourinary: normal voiding & quantity Extremities: normal exam, full range of motion, warm Musculoskeletal: normal exam Skin: normal exam, intact, warm Neuro: normal exam, alert, intact, normal mood/affect, oriented Hospital Course Hospital Course: serial cardiac labs, ekg,all negative, cardiology consult, will change bp meds and follow as out pt. Medications Medications: Discharge meds are as noted. Follow up Follow up in office in: 5 DAYS with: Frandy Michel Comment: rounded with timothy, pt will need to monitor bp and follow up in office at 1231
[2017-07-18] MEDS ORDERED: COREG 12.5 MG12.5 MG PO (12:34)
[2017-07-18 14:30] VITALS: BP 149/88
== END 2017-07-18 14:40 | disposition home or self-care (01) ==
LOC: ER 14:48 → 2ND 16:32
PROVIDERS: Emergency Medicine
DX: R07.9 Chest pain, unspecified (principal); I10 Essential (primary) hypertension; I25.110 Atherosclerotic heart disease of native coronary artery with unstable angina pectoris
CPT/HCPCS: G0378

== ENCOUNTER 2017-08-27 17:35 | Emergency (ER) | payer MEDICAID ==
[~2017-08-27] VITALS: Ht 160 cm; Wt 81.6 kg
[~2017-08-27 17:35] MED LIST changes: +ASPIR 8181 MG PO; +COREG 12.5 MG12.5 MG PO
--- NOTE | 2017-08-27 17:56 | [facility] Report ---
History of Present Issue Date/Time Seen by Provider 08/27/17 1836 Visit Reason Pt arrived:Walked Presenting Problem:pt states she began coughing up green sputum two days ago. has had soa and congestion and feels she needs steroids and atb's Location if Accident: Onset of symptoms date/time:08/25/17 or onset unknown for: Have you (or family members/close friends) recently traveled outside the [place]? N If Yes, where/when: Have you had exposure to infectious disease within the past month? TB? Other? Specify: Patient states that she hasn't been feeling good for about a week and then about 2 days she began coughing up thick green sputum. States that she feels like she has some chest congestion and when she starts coughing it makes her feel short of breath. State that she gets bronchitis every year and has had pneumonia several times too ALLERGIES Coded Allergies: codeine (Mild, 08/27/17) Home Medications Active Scripts Lisinopril & Hctz (Lisinopril-Hctz 10-12.5 MG Tab) 1 TAB PO BID 30 Days Prov: 07/18/17 Carvedilol (Coreg 12.5Mg) 12.5 MG PO BID 30 Days Prov: 07/18/17 Reported Medications Aspirin (Aspirin EC 81MG Tab) 81 MG PO DAILY Albuterol Sulfate (Ventolin Hfa) 0.09 MG IH QID PRN BREATHING #18 BUDESONIDE/FORMOTEROL FUMARATE (Symbicort 160-4.5 Mcg Inhaler) 1 PUFF IH BID #10 History Medical History General CAD? Yes Angina: No LA: No Hypertension? Yes Hyperlipidemia? No CHF? No DVT? No PE? No COPD? No Asthma? No Anemia? No GERD? No Gastric ulcers? No GI Bleed? No Hernia? No Thyroid Problems? No Hypothyroidism? No CVA? No Seizures? No Diabetes? No Renal Insuffiency? No UTI? No Stones? No BPH? No GB Disease: No Nephritic Syndrome? No Asplenia? No Hepatitis? No Sickle Cell Disease? No Arthritis? Yes Migraines? Yes Cataracts? No Glaucoma? No MRSA? No HIV? No TB? No Anxiety? Yes Depression? Yes Cancer? No More? 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 Respiratory cough, shortness of breath, denies stridor, wheezing Cardiovascular denies chest pain, denies edema, denies palpitations Physical Exam Vital Signs Vital Signs Date Time Temp Pulse Resp B/P Pulse O2 O2 Flow FiO2 Ox Delivery Rate 08/27 1744 97.9 88 18 158/109 95 08/27 1743 97.9 88 18 158/109 95 General Appearance normal appearance, WD/WN, no apparent distress Ear, Nose, Throat sinus pain/drainage, nasal congestion, throat red, irritated, drainage noted Respiratory Status Yes: trachea midline, chest symmetrical, non tender chest. No: respiratory distress. Lung Sounds bilateral: rhonchi. Cardiovascular normal exam Neurologic alert, bundle wrapper II-XII nml as tested, normal exam, no motor/sensory deficits, oriented x 3 Medical Decision Making LABS/Meds/Orders Pt receiving controlled substance in ED? No Results/Orders Orders Procedure Date/time Status CHEST(2 VIEWS-NOT PORTABLE) 08/27 1748 Active XRAY/CT/US XRAY/CT/US XRAY chest XR interpretation by reviewed by me Xray Results no infiltrates Comment xray discussed with Dr Thomas and he advised he read xray as negative chest Departure Departure Time of Disposition 1829 Disposition DC Home or Self Care(routine) Clinical Impression Primary Impression: Upper respiratory infection Qualifiers: URI type: unspecified URI Qualified Code: J06.9 - Acute upper respiratory infection, unspecified Condition STABLE Patient Instructions Cough, DI for Nasal Congestion, Guaifenesin Additional Instructions Follow up with family doctor If your symptoms continue to worsen, or at any time you began to feel short of breath, pain in chest, or difficulty breathing go straight to the ER Return if needed Take medication as prescribed * Monitor Temp. Tylenol and/or Ibuprofen as needed. ER if fever is no less than 101 despite alternating Tylenol and Ibuprofen * Encourage fluids, water, Gatorade, powerade, pedialyte if /toddler/or child * Warm salt water gargles for throat irritation *Warm fluids *Sore throat lozenges *Sleep elevated *humidifier or vaporizer *Flonase 2 sprays each nostril daily but may take 2-3 days to notice improvement with it Follow up IMMEDIATELY for new or worsening of symptoms OR no noticeable improvement over the next 48-72 hours. 911 immediately for any life threatening symptoms such as chest pain or difficulty breathing Discharge Counseling Counseled pt/family regarding diagnosis, test results, medications/RX, home care, follow up needs Prescriptions Current Visit Scripts Azithromycin (Zithromycin (Z-WU) 250MG Tab) 250 MG PO DAILY #6 TAB TAKE TWO (2) TABLETS ON DAY 1, THEN ONE (1) TABLET DAY #2 THRU #5 Methylprednisolone (Medrol Dose Wu) 4 MG PO UD #1 WU TAKE DIRECTED ON PACKAGING Benzonatate (Tessalon Perle) 100 MG PO TID #15 SGL Albuterol Sulfate (Proair Hfa) 2 PUFFS IH Q6HP PRN breathing difficulty #1 INH at 1841
[2017-08-27] MEDS ORDERED: MEDROL 4MG. DOSE4 MG PO (18:35)
[2017-08-27] MEDS ORDERED: ZITHROMAX Z PA250 MG PO (18:35)
[2017-08-27] MEDS ORDERED: TESSALON PERLE100 M1 PO (18:35)
[2017-08-27] MEDS ORDERED: PROAIR HFA0.09 MG/AC IH (18:35)
[2017-08-27 18:45] VITALS: BP 158/109
--- NOTE | 2017-08-28 05:10 | RADIOLOGY REPORT PS360 ---
CHEST(2 VIEWS-NOT PORTABLE) HISTORY: COUGH/CONGESTION ORDERING PHYSICIAN: JAYLA RODRIGUEZ APRN PATIENT AGE: 57 years COMPARISON: 07/17/2017, 07/23/2014 FINDINGS: There is increased density along right heart border and along the lower aspect of the anterior clear space. This however has been present on previous exam dating back to 07/21/2014 probably related to pericardial fat pad. The cardiomediastinal silhouette and pulmonary vascularity are within normal limits. The lungs are clear without infiltrates, suspicious nodules, or pleural effusions. No acute bony abnormalities. IMPRESSION: No change with no acute finding
== END 2017-08-27 18:47 | disposition home or self-care (01) ==
LOC: ER 17:35 → UTC 17:43 → ER 17:43 → UTC 18:47
DX: J06.9 Acute upper respiratory infection, unspecified (principal); F17.210 Nicotine dependence, cigarettes, uncomplicated; F41.8 Other specified anxiety disorders; Z88.6 Allergy status to analgesic agent; Z79.82 Long term (current) use of aspirin; I25.10 Atherosclerotic heart disease of native coronary artery without angina pectoris; I10 Essential (primary) hypertension